=== PATIENT | female | born 1945 | race Caucasian/White ===

== ENCOUNTER 2018-06-17 08:46 | Emergency (ER) | payer BC, SELFPAY ==
[2018-06-17 08:55] VITALS: BP 188/70; PULSE 100; RESP 16; TEMP 36.3; O2SAT 98
--- NOTE | 2018-06-17 09:13 | DI.US_ITS ---
SYMPTOM/DIAGNOSIS: POST MENOPAUSAL BLEEDING, ASSESS FOR MASS PELVIC ULTRASOUND: Transabdominal and transvaginal examination was performed. The uterus measures 6.5 cm in length by 3.5 cm AP xy 4.6 cm transverse. There is a complex mass-like region centered about the fundal endometrium and measures 2.2 x 1.8 x 3.6 cm. There does appear to be internal vascularity. Both ovaries were visualized and are grossly unremarkable. No free pelvic fluid or hydronephrosis is identified. IMPRESSION: 2.2 x 1.8 x 3.6 cm complex mass centered in the region of the fundal endometrium. Endometrial or uterine neoplasm cannot be excluded. Endometrial polyp or hyperplasia should also be considered. Gynecologic consult is recommended. The findings were discussed with Dr. Starr of the Emergency Department on the date of the examination.
--- NOTE | 2018-06-17 09:16 | W.ED.GENAD ---
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: Post-menopausal bleeding, Endometrial hyperplasia Primary Care Provider: Tg Stevenson ED Provider: Abigail Starr Home Meds and New Rx's Prescriptions: Continued nystatin 100,000 unit/gram cream 1 applic TP TID PRN (Reason: groin rash) Qty: 60 RF: 6 multivitamin [Daily Vitamin] 1 EACH tablet 1 ea PO DAILY RF: 0 aspirin [Aspirin Low-Strength] 81 MG tablet,chewable 81 mg PO DAILY RF: 0 ascorbic acid (vitamin C) [Vitamin C] 500 MG tablet 500 mg PO DAILY RF: 0 vitamin B complex [B-Complex] 1 EACH tablet 1 ea PO DAILY RF: 0 cholecalciferol (vitamin D3) 1,000 UNIT tablet 2,000 unit PO DAILY RF: 0 melatonin-pyridoxine HCl (B6) 1 EACH tablet 1 ea PO HS RF: 0 triamcinolone acetonide 80 GM ointment 1 renetta Topical BID PRNQty: 1 RF: 1 hydrocortisone 30 GM ointment 1 inch Topical TID Qty: 1 RF: 6 amlodipine 5 MG tablet 5 mg PO DAILY 90 Days Qty: 90 RF: 3 losartan 100 MG tablet 100 mg PO DAILY 90 Days Qty: 90 RF: 3 ibuprofen [Advil] 200 MG tablet 400 mg PO QID Qty: 20 RF: 0 omega-3 fatty acids-fish oil [Fish Oil] 360-1,200 mg Capsule 1 cap PO DAILY RF: 0 atorvastatin 80 mg tablet 40 mg PO DAILY RF: 0 Discharge Instructions Instructions: Postmenopausal Bleeding (GEN) Additional Instructions: Go directly to [facility] on the 3rd floor of the hospital tomorrow afternoon at 2 PM for evaluation by the forensic accountant. Drink plenty of fluids and get plenty of rest. Return immediately to the emergency department if you develop any worsening symptoms of significant increase in vaginal bleeding, shortness of breath or dizziness. Discharge Data Discharge Physician: Abigail Starr Medical Decision Making 72-year-old female with history of hypertension, hyperlipidemia, bilateral breast lumpectomy who presents for vaginal bleeding with some clots over the past 2 days. No other associated symptoms. Denies chest pain, shortness of breath, dizziness, weakness, fever, vomiting, abdominal pain, rectal bleeding or urinary symptoms. She was seen at the PCP office yesterday for the same complaint and had a vaginal speculum exam which she states the PCP confirmed was vaginal bleeding. They also obtained a urinalysis which was negative for nitrite, leukocyte esterase and was clear and yellow, so I do not see an indication for a repeat urinalysis at this time she does not complain of any urinary symptoms. Blood pressure hypertensive. Remainder vitals within normal limits. Patient has not taken her blood pressure medication today. She appears nontoxic and comfortable. External exam notes blood within the vaginal vault. Abdomen soft and nontender. . Patient appears nontoxic and comfortable. Main concern would be for postmenopausal bleeding related to possible mass, polyp, or another source requiring ENVIRONMENTAL CONSTRUCTION ENGINEER evaluation. Will place an IV, labs, and pelvic and transvaginal ultrasound. 1100 -- labs and imaging reviewed. Labs unremarkable. Normal white blood cell count, hemoglobin, platelets, coagulation studies and electrolytes. Ultrasound reviewed with radiologist and there is a heterogeneous mass noted near the fundus. Differential diagnosis includes tumor, polyp, endometrial hyperplasia. Will call ENVIRONMENTAL CONSTRUCTION ENGINEER for recommendations, but will likely follow-up as an output. 1150 --discussed with ENVIRONMENTAL CONSTRUCTION ENGINEER fashion buying internship Dr. Mijares -recommends patient go to women's wellness on the for tomorrow afternoon at 2 PM for evaluation. This was discussed with patient and she will plan to do that. She is instructed to get plenty of rest, drink plenty of fluids, and return immediately to the ER with any worsening symptoms of shortness of breath, dizziness or worsening bleeding. Medical Records Medical records reviewed: Yes I reviewed the patient's medical records. Imaging Data Radiologic Study: Radiologist's impression: PELVIC ULTRASOUND: Transabdominal and transvaginal examination was performed. The uterus measures 6.5 cm in length by 3.5 cm AP xy 4.6 cm transverse. There is a complex mass-like region centered about the fundal endometrium and measures 2.2 x 1.8 x 3.6 cm. There does appear to be internal vascularity. Both ovaries were visualized and are grossly unremarkable. No free pelvic fluid or hydronephrosis is identified. IMPRESSION: 2.2 x 1.8 x 3.6 cm complex mass centered in the region of the fundal endometrium. Endometrial or uterine neoplasm cannot be excluded. Endometrial polyp or hyperplasia should also be considered. Gynecologic consult is recommended. Lab Data Lab results reviewed: Yes I reviewed the patient's lab results. Laboratory Tests Range/Units 06/17/18 06/17/18 06/17/18 10:35 10:35 10:35 WBC (4.4-10.8) k/cumm 8.41 RBC (4.00-5.20) m/cumm 4.89 Hgb (12.0-15.5) g/dL 14.0 Hct (36.0-46.0) % 42.6 MCV (80-95) fL 87.1 MCH (27.0-33.0) pg 28.6 MCHC (32.0-36.0) g/dL 32.9 RDW (11.7-14.6) % 14.0 Plt Count (130-400) x1000/uL 228 MPV (8.0-11.0) fL 10.6 Immature Gran % 0.2 Neutrophils % 74.1 Lymphocytes % 17.7 Monocytes % 6.7 Eosinophils % 0.8 Basophils % 0.5 Absolute Neutrophils (1.2-6.7) k/cumm 6.23 Absolute Lymphocytes (1.2-3.4) k/cumm 1.49 Absolute Monocytes (0.11-0.7) k/cumm 0.56 Absolute Eosinophils (0.0-0.7) k/cumm 0.07 Absolute Basophils (0.0-0.2) k/cumm 0.04 PT (9.3-11.0) sec 10.0 INR (0.9-1.1) 1.0 APTT (21.0-31.4) sec 23.8 Sodium (136-145) mmol/L 141 Potassium (3.5-5.1) mmol/L 3.7 Chloride (98-107) mmol/L 103 Carbon Dioxide (21.0-32.0) mmol/L 26.0 Anion Gap (3-11) mmol/L 12.0 H BUN (7-18) mg/dL 15 Creatinine (0.55-1.02) mg/dL 0.59 Estimated GFR/1.73 m2 (mL/min/1.73m2) >= 60.00 Glucose (70-100) mg/dL 112 H Calcium (8.5-10.1) mg/dL 9.9 Total Bilirubin (0.2-1.0) mg/dL 0.7 AST (15-37) U/L 29 ALT (12-78) U/L 40 Alkaline Phosphatase (46-116) U/L 114 Total Protein (6.4-8.2) g/dL 8.3 H Albumin (3.4-5.0) g/dL 4.1 Patient ABO/Rh Antibody Screen Range/Units 06/17/18 10:35 WBC (4.4-10.8) k/cumm RBC (4.00-5.20) m/cumm Hgb (12.0-15.5) g/dL Hct (36.0-46.0) % MCV (80-95) fL MCH (27.0-33.0) pg MCHC (32.0-36.0) g/dL RDW (11.7-14.6) % Plt Count (130-400) x1000/uL MPV (8.0-11.0) fL Immature Gran % Neutrophils % Lymphocytes % Monocytes % Eosinophils % Basophils % Absolute Neutrophils (1.2-6.7) k/cumm Absolute Lymphocytes (1.2-3.4) k/cumm Absolute Monocytes (0.11-0.7) k/cumm Absolute Eosinophils (0.0-0.7) k/cumm Absolute Basophils (0.0-0.2) k/cumm PT (9.3-11.0) sec INR (0.9-1.1) APTT (21.0-31.4) sec Sodium (136-145) mmol/L Potassium (3.5-5.1) mmol/L Chloride (98-107) mmol/L Carbon Dioxide (21.0-32.0) mmol/L Anion Gap (3-11) mmol/L BUN (7-18) mg/dL Creatinine (0.55-1.02) mg/dL Estimated GFR/1.73 m2 (mL/min/1.73m2) Glucose (70-100) mg/dL Calcium (8.5-10.1) mg/dL Total Bilirubin (0.2-1.0) mg/dL AST (15-37) U/L ALT (12-78) U/L Alkaline Phosphatase (46-116) U/L Total Protein (6.4-8.2) g/dL Albumin (3.4-5.0) g/dL Patient ABO/Rh O Negative Antibody Screen Negative HPI General Mode of arrival: ambulatory. Date/Time Provider Initiated Documentation: 06/17/18 09:10. Limitations to Documentation: no limitations. Information obtained by: patient. HPI Narrative: Patient is a 72-year-old female who presents the ED with complaint of vaginal bleeding for the past 2 days. States she goes through possibly one pad during the day, but states the bleeding is worse at night, and that she used 3 pads last night. She does note occasional clots. She denies any fever, nausea, vomiting, abdominal pain, vaginal pain, rectal bleeding, urinary symptoms, and states she has been eating and drinking normally. She states she saw her primary care doctor yesterday for these complaints and had a vaginal exam which noted blood within the vagina. She was referred for outpatient ENVIRONMENTAL CONSTRUCTION ENGINEER consultation. Patient states that the bleeding became worse last night so she came to the ER today. She denies any dizziness, chest pain, shortness of breath. Related Data Home Medications Medication Instructions Recorded Confirmed aspirin [Aspirin Low-Strength] 81 mg PO DAILY tab-cap 07/13/12 06/17/18 multivitamin [Daily Vitamin] 1 ea PO DAILY 07/13/12 06/17/18 ascorbic acid (vitamin C) [Vitamin 500 mg PO DAILY tab 04/04/14 06/17/18 C] cholecalciferol (vitamin D3) 2,000 unit PO DAILY 04/04/14 06/17/18 melatonin-pyridoxine HCl (B6) 1 ea PO HS 04/04/14 06/17/18 vitamin B complex [B-Complex] 1 ea PO DAILY tab 04/04/14 06/17/18 triamcinolone acetonide 1 renetta TOPICAL BID PRN #1 tube 12/25/14 06/17/18 ibuprofen [Advil] 400 mg PO QID #20 tab 05/14/15 06/17/18 hydrocortisone 1 inch TOPICAL TID #1 tube 08/27/15 06/17/18 amlodipine 5 mg PO DAILY 90 Days #90 tab-cap 07/13/17 06/17/18 losartan 100 mg PO DAILY 90 Days #90 tab-cap 07/13/17 06/17/18 nystatin 100,000 unit/gram topical 1 applic TP TID PRN #60 gm 06/16/18 06/17/18 cream atorvastatin 40 mg PO DAILY 06/17/18 06/17/18 omega-3 fatty acids-fish oil [Fish 1 cap PO DAILY 06/17/18 06/17/18 Oil] Previous Rx's Medication Instructions Recorded ibuprofen [Advil] 400 mg PO QID #20 tab 05/14/15 amlodipine 5 mg PO DAILY 90 Days #90 tab-cap 07/13/17 losartan 100 mg PO DAILY 90 Days #90 tab-cap 07/13/17 nystatin 100,000 unit/gram topical 1 applic TP TID PRN #60 gm 06/16/18 cream Allergies Allergy/AdvReac Type Severity Reaction Status Date / Time lisinopril AdvReac ? 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 Review of Systems Review of Systems All systems reviewed & are unremarkable except as noted in HPI and below Constitutional Reports as per HPI, Denies chills and Denies fever(s) Eyes Denies blurry vision ENT Denies dizziness, Denies sore throat and Denies throat swelling Cardiovascular Denies chest pain and Denies dyspnea Respiratory Denies cough and Denies dyspnea Gastrointestinal Denies abdominal pain, Denies diarrhea and Denies vomiting Genitourinary Reports abnormal vaginal bleeding, Denies hematuria and Denies dysuria Musculoskeletal Denies back pain and Denies numbness Integumentary/Breasts Denies lesions and Denies rash Neurologic Denies dizziness, Denies focal weakness and Denies numbness Allergic/Immunologic Denies throat swelling [facility] Medical History Hyperlipemia (Acute) HTN (hypertension) (Chronic) Kidney stones (Chronic) Surgical History History of lumpectomy (Acute) Family History Mother No problems noted. Father Myocardial infarction Son Age: 50 No problems noted. Daughter Age: 54 Diabetes Social History Smoking/Tobacco Use Status: Never Alcohol Intake: never Drug use: Never Substance use type: does not use Do you feel safe in your relationship?: Yes Exam Const General: cooperative, healthy appearing and no acute distress HENMT Head: normal to inspection Face and sinus: normal facial exam Eyes General: appearance normal, both eyes and all related structures EOM: EOM intact bilaterally Neck Neck: normal visual inspection and No submandibular swelling Lymphatic: no lymphadenopathy noted Chest Chest: normal inspection of the chest and no tenderness Resp Effort & Inspection: normal respiratory effort and able to speak in complete sentences Auscultation: clear to auscultation bilaterally Cardio Rate: regular rate Rhythm: regular rhythm GI Inspection: normal to inspection Palpation: soft, not firm, not rigid and nontender Auscultation: normal bowel sounds External Female Exam: normal appearance of the urethra and other (External exam reveals blood noted within the vagina.) Skin General skin exam: no rashes or lesions noted Neuro General: alert, awake and oriented x3 Cognition: normal cognition Speech: speech normal Motor: muscle tone normal throughout Sensory Exam: no sensory deficits noted Extrem General: normal to inspection, full ROM and no edema Psych Appearance: grossly normal Mental Status: mental status grossly normal Speech and Movement: speech and movement normal Affect: normal affect Course Vital Signs Temperature 97.3 F L 06/17/18 08:55 Pulse 100 H 06/17/18 08:55 Respiratory Rate 16 06/17/18 08:55 Blood Pressure 188/70 H 06/17/18 08:55 Pulse Oximetry 98 06/17/18 08:55 Temperature 97.3 F L 06/17/18 08:55 Temperature Source Skin 06/17/18 08:55 Pulse 100 H 06/17/18 08:55 Respiratory Rate 16 06/17/18 08:55 Respiratory Effort Non-Labored 06/17/18 08:55 Blood Pressure 188/70 H 06/17/18 08:55 Blood Pressure Position Sitting 06/17/18 08:55 Pulse Oximetry 98 06/17/18 08:55 Oxygen Delivery Method Room Air 06/17/18 08:55 Oxygen Flow Rate 0 06/17/18 08:55 Pain Level 0 06/17/18 08:55
[2018-06-17] MEDS: Normal Saline 1,000 ML 100 ML IV (10:35)
[2018-06-17 10:46] LABS: Abs Immature Grans 0.02 k/cumm (0.0-0.09); Absolute Basophil Count 0.04 k/cumm (0.0-0.2); Absolute Eosinophil Count 0.07 k/cumm (0.0-0.7); Absolute Lymphocyte Count 1.49 k/cumm (1.2-3.4); Absolute Monocyte Count 0.56 k/cumm (0.11-0.7); Absolute Neutrophil Count 6.23 k/cumm (1.2-6.7); Basophils % 0.5; Eosinophils % 0.8; HCT 42.6 % (36.0-46.0); Immature Grans % 0.2; Lymphocytes % 17.7; Mean Corp. HGB Concentration 32.9 g/dL (32.0-36.0); Mean Corpuscular Hemoglobin 28.6 pg (27.0-33.0); Mean Corpuscular Volume 87.1 fL (80-95); Mean Platelet Volume 10.6 fL (8.0-11.0); Monocytes % 6.7; Neutrophils % 74.1; Platelet Count 228 x1000/uL (130-400); RBC 4.89 m/cumm (4.00-5.20); White Blood Cell Count 8.41 k/cumm (4.4-10.8)
[2018-06-17 10:59] LABS: ALT 40 U/L (12-78); AST 29 U/L (15-37); Albumin 4.1 g/dL (3.4-5.0); Alkaline Phosphatase 114 U/L (46-116); BUN 15 mg/dL (7-18); Bilirubin, Total 0.7 mg/dL (0.2-1.0); CREATININE 0.59 mg/dL (0.55-1.02); Calcium 9.9 mg/dL (8.5-10.1); Chloride 103 mmol/L (98-107); Glucose 112 mg/dL (70-100); Potassium 3.7 mmol/L (3.5-5.1); Sodium 141 mmol/L (136-145); Total Protein 8.3 g/dL (6.4-8.2)
[2018-06-17 11:00] LABS: PTT Activated 23.8 sec (21.0-31.4)
[2018-06-17 14:21] VITALS: BP 156/63; PULSE 87; RESP 16; TEMP 36.3; O2SAT 94
== END 2018-06-17 12:28 | disposition home or self-care (01) ==
PROVIDERS: Emergency Provider Physician Assistant; PCP Nurse Practitioner
DX: N95.0 Postmenopausal bleeding (principal); N85.00 Endometrial hyperplasia, unspecified; I10 Essential (primary) hypertension
CPT/HCPCS: 80053; 86850; 86900; 86901; 96360; 96361; 99284; 76830; 76856; 85025; 85610; 85730

== ENCOUNTER 2018-06-22 15:55 | Outpatient (CLI) | payer BC, SELFPAY ==
[2018-06-22 16:57] LABS: Hemoglobin A1C 6.3 % (4.5-6.2)
[2018-06-22 19:05] LABS: ALT 40 U/L (12-78); AST 25 U/L (15-37); Albumin 4.2 g/dL (3.4-5.0); Alkaline Phosphatase 107 U/L (46-116); BUN 23 mg/dL (7-18); Bilirubin, Total 0.5 mg/dL (0.2-1.0); CREATININE 1.08 mg/dL (0.55-1.02); Calcium 10.5 mg/dL (8.5-10.1); Chloride 106 mmol/L (98-107); Cholesterol 191 mg/dL (50-200); Estimated GFR 49.59 (mL/min/1.73m2); Glucose 83 mg/dL (70-100); HDL Cholesterol 58 mg/dL (40-60); LDL CHOLESTEROL 115 mg/dL (<100); Potassium 4.2 mmol/L (3.5-5.1); Sodium 143 mmol/L (136-145); Total Protein 7.7 g/dL (6.4-8.2); Triglyceride 137 mg/dL (30-150)
[2018-06-24 09:45] LABS: Parathyroid Hormone,Intact 111 pg/ml (19-88)
== END 2018-06-22 16:15 ==
PROVIDERS: Family Medicine; PCP Nurse Practitioner; Visit Provider Obstetrics & Gynecology
DX: E21.0 Primary hyperparathyroidism (principal); E78.5 Hyperlipidemia, unspecified; R73.01 Impaired fasting glucose
CPT/HCPCS: 36415; 80053; 80061; 83721; 83036; 83970

== ENCOUNTER 2018-06-23 09:12 | Day surgery (SDC) | payer BC, SELFPAY ==
[2018-06-23 09:33] VITALS: BP 171/83; PULSE 94; RESP 18; TEMP 35.6; O2SAT 96
[2018-06-23] MEDS: Lactated Ringers 1,000 ML 125 ML IV (09:52)
--- NOTE | 2018-06-23 10:38 | ENDOMET_PTH ---
PATIENT: Candy Rios LOC: [facility] U#:[id number] AGE/SX: 72/F ROOM: RE06/23/[address]: Ricki Mijares MD : 1945 BED: DIS: 06/23/2018 SPEC #: [id number] RECD: 06/23/18 13:01 STATUS: LOUISE REBing #: [id number] MALINI: 06/23/18 10:[address]: Ricki Mijares DEPT: Surgical Specimen RECD BY: Jessica Lang ENTERED: 06/23/18 13:04 SP TYPE: Endomet OTHR DR: Tg Stevenson APRN Tissues: 1 - ENDOMETRIUM BX/CURRETTE Procedures: GROSS AND MICRO LEVEL 4 Comments: [id number]
[2018-06-23] MEDS: Lidocaine 1% Multi-Dose 50 ML VIAL (10:49)
[2018-06-23 10:55] VITALS: BP 153/57; PULSE 91; RESP 15; TEMP 36.4; O2SAT 96
--- NOTE | 2018-06-23 10:57 | W.PM.OP ---
Date of service: 06/23/18 Time of Service: 10:58 Operative Note DATE OF PROCEDURE: 06/23/18 PRE-OP DIAGNOSIS: Postmenopausal bleeding POST-OP DIAGNOSIS: same PROCEDURE: Hysteroscopy D&C SURGEON: Ricki Mijares ANESTHESIA: GETA and local ESTIMATED BLOOD LOSS: 0 PATHOLOGY: other (Endometrial curettings ) COMPLICATIONS: None Patient was transported to: PACU Patient's condition: stable Indications: Postmenopausal bleeding. Findings: 1. Thickened hyperplastic appearing endometrium. Procedure Description: The patient was taken to the operating room and after adequate general anesthesia was obtained the patient was prepped and draped in the usual sterile manner. The bladder was straight cathed for approximately 20ml of clear urine. A weighted speculum was placed in the vagina with good visualization of the cervix. A paracervical block with 10ml of 1% lidocaine was placed. The cervix was gently dilated with Marie dilators. The 5mm 30 degree hysteroscope with NS distention media was passed easily with good visualization of the endometrial cavity. There was a thickened hyperplastic appearance to the endometrial cavity. The hysteroscope was removed. A sharp curettage was performed and the specimen was submitted to pathology. All instrumentation was removed. Sponge and instrument counts were correct at the conclusion of the procedure. The patient was transferred to PACU in stable condition.
[2018-06-23 11:00] VITALS: BP 156/55; PULSE 97; RESP 14; TEMP 36.6; O2SAT 97
[2018-06-23 11:05] VITALS: BP 151/60; PULSE 95; RESP 15; TEMP 36.6; O2SAT 95
[2018-06-23 11:20] VITALS: BP 167/57; PULSE 95; RESP 15; TEMP 36.7; O2SAT 95
[2018-06-23 12:00] VITALS: BP 152/78; PULSE 88; RESP 16; TEMP 36.3; O2SAT 96
== END 2018-06-23 12:45 | disposition home or self-care (01) ==
PROVIDERS: PCP Nurse Practitioner; Visit Provider Obstetrics & Gynecology
PROC: 0UDB8ZZ Extraction of Endometrium, Via Natural or Artificial Opening Endoscopic (ICD-10-PCS; CPT 58558; principal; 2018-06-23 10:15)
DX: C54.1 Malignant neoplasm of endometrium (principal); N95.0 Postmenopausal bleeding; I10 Essential (primary) hypertension
CPT/HCPCS: 58558; 88305; J1100; J2405; J3010

== ENCOUNTER 2018-07-28 00:41 | Outpatient (CLI) | payer BC, SELFPAY ==
--- NOTE | 2018-07-28 16:09 | DI.MAMMO_ITS ---
SYMPTOMS/DIAGNOSIS: SCREENING, Z12.31 MAMMOGRAMS: Mammograms were interpreted according to the usual protocol including computer analysis with CAD system, tomosynthesis and C view imaging. The breast tissue is predominantly of fatty radiodensity. Biopsy clips are noted in both breasts. There is no evidence of a mass. There are no suspicious calcifications and there has been no significant interval change when compared with prior images. SUMMARY: No evidence of malignancy, category 1. Yearly screening mammography is recommended. Breast density category A. SA ASSESSMENT OF FINDINGS: Negative. Category 1. Patient will receive a letter notifying them of these results. BI-RAD category A. The breasts are almost entirely fatty.
== END 2018-07-28 01:01 ==
PROVIDERS: PCP Nurse Practitioner; Visit Provider Nurse Practitioner
DX: Z12.31 Encounter for screening mammogram for malignant neoplasm of breast (principal)
CPT/HCPCS: 77063; 77067

== ENCOUNTER 2018-08-23 14:51 | Emergency (ER) | payer BC, SELFPAY ==
[2018-08-23] VITALS (43 sets, daily range): BP systolic 105–136; BP diastolic 20–61; PULSE 89–99; RESP 16; TEMP 36.3; O2SAT 93–97
--- NOTE | 2018-08-23 15:03 | DI.CT_ITS ---
SYMPTOM/DIAGNOSIS: S/P TOTAL HYSTERECTOMY, WORSENING ABD/PELVIC PAIN ABDOMEN AND PELVIC CT: The exam was performed after intravenous of 60 cc's of Omnipaque 350 . The liver is unremarkable. The gallbladder is intact. There are no stones or ductal dilatation. The pancreas is unremarkable. The spleen is normal. The adrenals are normal. Note is made of minimal right hydronephrosis. No calculus is identified. There are no acute findings involving the stomach or bowel. Note is made of colonic diverticulosis. There is no evidence of an acute appendix. The bladder is non distended. The patient is status post hysterectomy. Pelvic fluid is seen in the central and right lower pelvis. There may be one continuous and or two adjacent fluid collections. The largest measures approximately 3 by 7 cm. There is no evidence of gas within the fluid collections. There is no pneumoperitoneum. Streaky soft tissue densities are demonstrated in the lower pelvis. No acute bony abnormality is seen. The soft tissues are unremarkable. There is no aortic aneurysm. There is no lymphadenopathy. SUMMARY: Pelvic free fluid would be consistent with a hematoma or abscess. This patient is status post hysterectomy. Note is also made of mild right hydronephrosis.
--- NOTE | 2018-08-23 15:04 | W.ED.GENAD ---
Discharge Plan Disposition Patient Disposition: [facility] Condition: Serious Discharge Details Chief Complaint: Abd Prob Clinical Impression: Post-operative complication, Intra-abdominal abscess Primary Care Provider: Tg Stevenson ED Provider: Jules Bowman Home Meds and New Rx's Prescriptions: No Action nystatin 100,000 unit/gram cream 1 applic TP TID PRN (Reason: groin rash) Qty: 60 RF: 6 amlodipine 10 mg tablet 10 mg PO DAILY Qty: 90 RF: 3 multivitamin [Daily Vitamin] 1 EACH tablet 1 ea PO DAILY RF: 0 aspirin [Aspirin Low-Strength] 81 MG tablet,chewable 81 mg PO DAILY RF: 0 ascorbic acid (vitamin C) [Vitamin C] 500 MG tablet 500 mg PO DAILY RF: 0 vitamin B complex [B-Complex] 1 EACH tablet 1 ea PO DAILY RF: 0 cholecalciferol (vitamin D3) 1,000 UNIT tablet 2,000 unit PO DAILY RF: 0 melatonin-pyridoxine HCl (B6) 1 EACH tablet 1 ea PO HS RF: 0 triamcinolone acetonide 80 GM ointment 1 renetta Topical BID PRNQty: 1 RF: 1 hydrocortisone 30 GM ointment 1 inch Topical TID Qty: 1 RF: 6 losartan 100 MG tablet 100 mg PO DAILY 90 Days Qty: 90 RF: 3 ibuprofen [Advil] 200 MG tablet 400 mg PO QID Qty: 20 RF: 0 omega-3 fatty acids-fish oil [Fish Oil] 360-1,200 mg Capsule 1 cap PO DAILY RF: 0 atorvastatin 80 mg tablet 40 mg PO DAILY RF: 0 Discharge Data Discharge Date/Time-TO BE ENTERED AT DEPARTURE: 08/23/18 21:05 Medical Decision Making This is a pleasant 72-year-old female who 9 days ago had a complete and total hysterectomy and oophorectomy. This was performed at [facility]. Since then she has been doing very well and had been eating and drinking well without any complication or difficulty. Over the last 48 to 72 hours she has had a notable sudden onset of severe abdominal and pelvic pain, with a notably decreased appetite. She did have a large bowel movement yesterday and this slightly improved her symptoms but did not resolve them, the pain is gotten notably worse. She has had no associated vomiting. Exam demonstrates notable abdominal tenderness, mild distention, and reduced bowel sounds. Differential includes postoperative complication, abscess, or obstruction. We will get a CT scan for further evaluation. Will gently rehydrate, perform laboratory work-up. Signs and symptoms are inconsistent with ACS. As there is no chest pain, shortness of breath or other chest symptoms whatsoever. The patient does not want any pain medication at this time. 8:[address] scan shows evidence of notable intra-abdominal fluid collection which could be hematoma or abscess. With the patient's white count of 30, lactate of 1.9, notable left shift, I suspect that this is most likely infectious. Zosyn has been started. Patient remains hemodynamically stable with no tachycardia or hypotension. No signs of significant or severe sepsis at this time. I contacted [facility] and discussed the case with Dr. Jiménez, she recommended transfer to [facility] for further management. We have received acceptance. Patient will be transferred to [facility] for further management. I have extensively reviewed the treatment plan with the patient. I have addressed all patient concerns at this time. I have also discussed the plan with the admitting physician and they agree with the current assessment and plan and have agreed to assume responsibility for the patient. All parties demonstrate verbal understanding and agreement with our assessment and plan at this time. At time of transfer the patient was reassessed and continued to demonstrate current medical stability. No signs of acute respiratory distress requiring intubation, hemodynamic instability requiring pressor support, or rapidly declining mental status. The patient is stable for transport. CLINICAL HISTORY: 72 years old, female; Abdominal pain; Prior surgery; Surgery date: <1 month; Surgery type: Total hystero 11 days ago, worsening pain TECHNIQUE: Imaging protocol: Axial computed tomography images of the abdomen and pelvis with intravenous contrast. Coronal and sagittal reformatted images were created and reviewed. COMPARISON: US pelvis 06/17/2018 3:39 PM FINDINGS: ABDOMEN: Liver: No mass. Gallbladder and bile ducts: Normal. No calcified stones. No ductal dilation. Pancreas: Normal. No ductal dilation. Spleen: Normal. No splenomegaly. Adrenals: No mass. Kidneys and ureters: Minimal right hydronephrosis, no obstructing ureteral calculus. Stomach and bowel: No acute findings. No obstruction. No mucosal thickening. Colonic diverticulosis. Appendix: No evidence of appendicitis. PELVIS: Bladder: Underdistended bladder. JOSHUA BLANCHARD Preliminary Radiology Report ART OBJECTS SUPERVISOR (QA) DISCREPANCY? If there is a discrepancy between the preliminary and final interpretation, please notify [facility] via [email or web address]. If you do not have access to our QA portal, call our QA team at [phone] CONFIDENTIALITY STATEMENT This report is intended only for the use of the referring physician, and only in accordance with law, If you received this in error, call [phone] Page 2 of 2 Reproductive: Hysterectomy. ABDOMEN and PELVIS: Intraperitoneal space: Pelvic fluid seen in the central and right lower pelvis, there may be one continuous or two adjacent fluid collections, the largest estimated 3 x 7 cm. No air/gas within the fluid collection(s). No pneumoperitoneum. Streaky soft tissue densities in the lower anterior pelvis. Bones/joints: No acute fracture. No dislocation. Soft tissues: Unremarkable. Vasculature: No abdominal aortic aneurysm. Lymph nodes: No significant adenopathy. IMPRESSION: Pelvic fluid consistent with hematoma or abscess. Status post hysterectomy. Minimal right hydronephrosis. Thank you for allowing us to participate in the care of your patient. Dictated and Authenticated by: Fredi Chapman MD 08/23/2018 5:57 PM Eastern Time ([place] & [place] HPI General Date/Time Provider Initiated Documentation: 08/23/18 15:02. HPI Narrative: This is a very pleasant 72-year-old female with a past medical history of uterine cancer with total hysterectomy and oophorectomy on 08/12/2018 at [facility], with an additional past medical history of kidney stones, hypertension, high cholesterol and chronic cardiac murmur. She presents today for abdominal and pelvic pain. She states that after the surgery she had been doing very well, had not required any pain medications and had been eating and drinking well with no vomiting diarrhea or constipation. 3 days ago she noticed some mild to moderate lower pelvic and abdominal pain, this gradually worsened and then became severe over the last 24 hours. She did have one large bowel movement earlier today and this slightly improved the pain. However the pain is still persistent. She denies any diarrhea, vomiting, hematemesis, melena, or acholic stool. She denies any dark or tarry stools. She does admit to a notably decreased appetite. She denies any chest pain, shortness of breath, chest heaviness, arm neck or shoulder pain, dysuria, hematuria, fever, chills, cough, vaginal discharge. Patient denies IV or illicit drug use. She is only taking 1 pain pill and that was today because of the severe pain. No other complaints or modifying factors. Related Data Home Medications Medication Instructions Recorded Confirmed aspirin [Aspirin Low-Strength] 81 mg PO DAILY tab-cap 07/13/12 08/23/18 multivitamin [Daily Vitamin] 1 ea PO DAILY 07/13/12 08/23/18 ascorbic acid (vitamin C) [Vitamin 500 mg PO DAILY tab 04/04/14 08/23/18 C] cholecalciferol (vitamin D3) 2,000 unit PO DAILY 04/04/14 08/23/18 melatonin-pyridoxine HCl (B6) 1 ea PO HS 04/04/14 08/23/18 vitamin B complex [B-Complex] 1 ea PO DAILY tab 04/04/14 08/23/18 triamcinolone acetonide 1 renetta TOPICAL BID PRN #1 tube 12/25/14 08/23/18 ibuprofen [Advil] 400 mg PO QID #20 tab 05/14/15 08/23/18 hydrocortisone 1 inch TOPICAL TID #1 tube 08/27/15 08/23/18 losartan 100 mg PO DAILY 90 Days #90 tab-cap 07/13/17 08/23/18 nystatin 100,000 unit/gram topical 1 applic TP TID PRN #60 gm 06/16/18 08/23/18 cream atorvastatin 40 mg PO DAILY 06/17/18 08/23/18 omega-3 fatty acids-fish oil [Fish 1 cap PO DAILY 06/17/18 08/23/18 Oil] amlodipine 10 mg tablet 10 mg PO DAILY #90 tab 06/21/18 08/23/18 Previous Rx's Medication Instructions Recorded ibuprofen [Advil] 400 mg PO QID #20 tab 05/14/15 losartan 100 mg PO DAILY 90 Days #90 tab-cap 07/13/17 nystatin 100,000 unit/gram topical 1 applic TP TID PRN #60 gm 06/16/18 cream amlodipine 10 mg tablet 10 mg PO DAILY #90 tab 06/21/18 Allergies Allergy/AdvReac Type Severity Reaction Status Date / Time lisinopril AdvReac ? dry cough Verified 08/23/18 18:46 General Stated Complaint: Abd Prob RAMEZ: 3 Review of Systems Review of Systems All systems reviewed & are unremarkable except as noted in HPI and below PFSH Medical History Heart murmur (Acute) Hyperlipemia (Acute) HTN (hypertension) (Chronic) Kidney stones (Chronic) Surgical History History of colonoscopy with polypectomy (Acute) History of lumpectomy (Acute) History of lumpectomy of both breasts (Acute) Social History Smoking/Tobacco Use Status: Never Alcohol Intake: never Drug use: Never Substance use type: does not use Do you feel safe at home: Yes Do you feel safe in your relationship?: Yes Exam Narrative Exam Narrative: 1.Const: Well-nourished, Well-developed, appearing stated age 2.Eyes: PERRL, no conjunctival injection, and symmetrical lids. 3.ENT: Atraumatic external nose and ears. Moist MM. Neck: Symmetric, trachea midline, No thyromegaly. 4.CVS: +S1/S2, No murmurs or gallops. Peripheral pulses 2+ and equal in all extremities. Brisk capillary refill in all extremities. 5.RESP: Unlabored respiratory effort. Clear to auscultation bilaterally. No wheezes rales or rhonchi 6.GI: Minimal abdominal distention, noted rebound and tenderness throughout. Laparoscopic incision sites are clean, dry, intact with no evidence of dehiscence. No drainage redness or erythema. No subcutaneous crepitus. Notably diminished bowel sounds throughout. Abdominal pain is consistent through the abdomen and pelvis 7.MSK: Normocephalic/Atraumatic, Extremities w/o deformity or ttp No cyanosis or clubbing, Normal movement of all extremities 8.Skin: Warm, Dry. No rashes or lesions. 9.Neuro: grocery packer II-XII grossly intact. Sensation grossly intact, no focal neurologic deficits. 10.Psych: (AAO) x3. Appropriate mood and affect Course Vital Signs Temperature 36.3 C L 08/23/18 14:54 Pulse 99 H 08/23/18 14:54 Respiratory Rate 16 08/23/18 14:54 Blood Pressure 111/43 L 08/23/18 14:54 Pulse Oximetry 97 08/23/18 14:54 Temperature 36.3 C L 08/23/18 14:54 Temperature Source Skin 08/23/18 14:54 Pulse 99 H 08/23/18 14:54 Respiratory Rate 16 08/23/18 14:54 Blood Pressure 111/43 L 08/23/18 14:54 Blood Pressure Position Sitting 08/23/18 14:54 Pulse Oximetry 97 08/23/18 14:54 Oxygen Delivery Method Room Air 08/23/18 14:54 Oxygen Flow Rate 0 08/23/18 14:54
--- NOTE | 2018-08-23 15:08 | ED.GENADUL_ITS ---
Discharge Plan Disposition Patient Disposition: [facility] Condition: Serious Discharge Details Chief Complaint: Abd Prob Clinical Impression: Post-operative complication, Intra-abdominal abscess Primary Care Provider: Tg Stevenson ED Provider: Jules Bowman Home Meds and New Rx's Prescriptions: No Action nystatin 100,000 unit/gram cream 1 applic TP TID PRN (Reason: groin rash) Qty: 60 RF: 6 amlodipine 10 mg tablet 10 mg PO DAILY Qty: 90 RF: 3 multivitamin [Daily Vitamin] 1 EACH tablet 1 ea PO DAILY RF: 0 aspirin [Aspirin Low-Strength] 81 MG tablet,chewable 81 mg PO DAILY RF: 0 ascorbic acid (vitamin C) [Vitamin C] 500 MG tablet 500 mg PO DAILY RF: 0 vitamin B complex [B-Complex] 1 EACH tablet 1 ea PO DAILY RF: 0 cholecalciferol (vitamin D3) 1,000 UNIT tablet 2,000 unit PO DAILY RF: 0 melatonin-pyridoxine HCl (B6) 1 EACH tablet 1 ea PO HS RF: 0 triamcinolone acetonide 80 GM ointment 1 renetta Topical BID PRNQty: 1 RF: 1 hydrocortisone 30 GM ointment 1 inch Topical TID Qty: 1 RF: 6 losartan 100 MG tablet 100 mg PO DAILY 90 Days Qty: 90 RF: 3 ibuprofen [Advil] 200 MG tablet 400 mg PO QID Qty: 20 RF: 0 omega-3 fatty acids-fish oil [Fish Oil] 360-1,200 mg Capsule 1 cap PO DAILY RF: 0 atorvastatin 80 mg tablet 40 mg PO DAILY RF: 0 Discharge Data Discharge Date/Time-TO BE ENTERED AT DEPARTURE: 08/23/18 21:05 Medical Decision Making This is a pleasant 72-year-old female who 9 days ago had a complete and total hysterectomy and oophorectomy. This was performed at [facility]. Since then she has been doing very well and had been eating and drinking well without any complication or difficulty. Over the last 48 to 72 hours she has had a notable sudden onset of severe abdominal and pelvic pain, with a notably decreased appetite. She did have a large bowel movement yesterday and this slightly improved her symptoms but did not resolve them, the pain is gotten notably worse. She has had no associated vomiting. Exam demonstrates notable abdominal tenderness, mild distention, and reduced bowel sounds. Differential includes postoperative complication, abscess, or obstruction. We will get a CT scan for further evaluation. Will gently rehydrate, perform laboratory work-up. Signs and symptoms are inconsistent with ACS. As there is no chest pain, shortness of breath or other chest symptoms whatsoever. The patient does not want any pain medication at this time. 8:[address] scan shows evidence of notable intra-abdominal fluid collection which could be hematoma or abscess. With the patient's white count of 30, lactate of 1.9, notable left shift, I suspect that this is most likely infectious. Zosyn has been started. Patient remains hemodynamically stable with no tachycardia or hypotension. No signs of significant or severe sepsis at this time. I contacted [facility] and discussed the case with Dr. Jiménez, she recommended transfer to [facility] for further management. We have received acceptance. Patient will be transferred to [facility] for further management. I have extensively reviewed the treatment plan with the patient. I have addressed all patient concerns at this time. I have also discussed the plan with the admitting physician and they agree with the current assessment and plan and have agreed to assume responsibility for the patient. All parties demonstrate verbal understanding and agreement with our assessment and plan at this time. At time of transfer the patient was reassessed and continued to demonstrate current medical stability. No signs of acute respiratory distress requiring intubation, hemodynamic instability requiring pressor support, or rapidly declining mental status. The patient is stable for transport. CLINICAL HISTORY: 72 years old, female; Abdominal pain; Prior surgery; Surgery date: <1 month; Surgery type: Total hystero 11 days ago, worsening pain TECHNIQUE: Imaging protocol: Axial computed tomography images of the abdomen and pelvis with intravenous contrast. Coronal and sagittal reformatted images were created and reviewed. COMPARISON: US pelvis 06/17/2018 3:39 PM FINDINGS: ABDOMEN: Liver: No mass. Gallbladder and bile ducts: Normal. No calcified stones. No ductal dilation. Pancreas: Normal. No ductal dilation. Spleen: Normal. No splenomegaly. Adrenals: No mass. Kidneys and ureters: Minimal right hydronephrosis, no obstructing ureteral calculus. Stomach and bowel: No acute findings. No obstruction. No mucosal thickening. Colonic diverticulosis. Appendix: No evidence of appendicitis. PELVIS: Bladder: Underdistended bladder. JOSHUA BLANCHARD Preliminary Radiology Report DEDICATED INTERMODAL TRUCK DRIVER (QA) DISCREPANCY? If there is a discrepancy between the preliminary and final interpretation, please notify [facility] via [email or web address]. If you do not have access to our QA portal, call our QA team at [phone] CONFIDENTIALITY STATEMENT This report is intended only for the use of the referring physician, and only in accordance with law, If you received this in error, call [phone] Page 2 of 2 Reproductive: Hysterectomy. ABDOMEN and PELVIS: Intraperitoneal space: Pelvic fluid seen in the central and right lower pelvis, there may be one continuous or two adjacent fluid collections, the largest estimated 3 x 7 cm. No air/gas within the fluid collection(s). No pneumoperitoneum. Streaky soft tissue densities in the lower anterior pelvis. Bones/joints: No acute fracture. No dislocation. Soft tissues: Unremarkable. Vasculature: No abdominal aortic aneurysm. Lymph nodes: No significant adenopathy. IMPRESSION: Pelvic fluid consistent with hematoma or abscess. Status post hysterectomy. Minimal right hydronephrosis. Thank you for allowing us to participate in the care of your patient. Dictated and Authenticated by: Fredi Chapman MD 08/23/2018 5:57 PM Eastern Time ([place] & [place] HPI General Date/Time Provider Initiated Documentation: 08/23/18 15:02 . HPI Narrative: This is a very pleasant 72-year-old female with a past medical history of uterine cancer with total hysterectomy and oophorectomy on 08/12/2018 at [facility], with an additional past medical history of kidney stones, hypertension, high cholesterol and chronic cardiac murmur. She presents today for abdominal and pelvic pain. She states that after the surgery she had been doing very well, had not required any pain medications and had been eating and drinking well with no vomiting diarrhea or constipation. 3 days ago she noticed some mild to moderate lower pelvic and abdominal pain, this gradually worsened and then became severe over the last 24 hours. She did have one large bowel movement earlier today and this slightly improved the pain. However the pain is still persistent. She denies any diarrhea, vomiting, hematemesis, melena, or acholic stool. She denies any dark or tarry stools. She does admit to a notably decreased appetite. She denies any chest pain, shortness of breath, chest heaviness, arm neck or shoulder pain, dysuria, hematuria, fever, chills, cough, vaginal discharge. Patient denies IV or illicit drug use. She is only taking 1 pain pill and that was today because of the severe pain. No other complaints or modifying factors. Related Data Home Medications Medication Instructions Recorded Confirmed aspirin [Aspirin Low-Strength] 81 mg PO DAILY tab-cap 07/13/12 08/23/18 multivitamin [Daily Vitamin] 1 ea PO DAILY 07/13/12 08/23/18 ascorbic acid (vitamin C) [Vitamin 500 mg PO DAILY tab 04/04/14 08/23/18 C] cholecalciferol (vitamin D3) 2,000 unit PO DAILY 04/04/14 08/23/18 melatonin-pyridoxine HCl (B6) 1 ea PO HS 04/04/14 08/23/18 vitamin B complex [B-Complex] 1 ea PO DAILY tab 04/04/14 08/23/18 triamcinolone acetonide 1 renetta TOPICAL BID PRN #1 tube 12/25/14 08/23/18 ibuprofen [Advil] 400 mg PO QID #20 tab 05/14/15 08/23/18 hydrocortisone 1 inch TOPICAL TID #1 tube 08/27/15 08/23/18 losartan 100 mg PO DAILY 90 Days #90 tab-cap 07/13/17 08/23/18 nystatin 100,000 unit/gram topical 1 applic TP TID PRN #60 gm 06/16/18 08/23/18 cream atorvastatin 40 mg PO DAILY 06/17/18 08/23/18 omega-3 fatty acids-fish oil [Fish 1 cap PO DAILY 06/17/18 08/23/18 Oil] amlodipine 10 mg tablet 10 mg PO DAILY #90 tab 06/21/18 08/23/18 Previous Rx's Medication Instructions Recorded ibuprofen [Advil] 400 mg PO QID #20 tab 05/14/15 losartan 100 mg PO DAILY 90 Days #90 tab-cap 07/13/17 nystatin 100,000 unit/gram topical 1 applic TP TID PRN #60 gm 06/16/18 cream amlodipine 10 mg tablet 10 mg PO DAILY #90 tab 06/21/18 Allergies Allergy/AdvReac Type Severity Reaction Status Date / Time lisinopril AdvReac ? dry cough Verified 08/23/18 18:46 General Stated Complaint: Abd Prob RAMEZ: 3 Review of Systems Review of Systems All systems reviewed & are unremarkable except as noted in HPI and below PFSH Medical History Heart murmur (Acute) Hyperlipemia (Acute) HTN (hypertension) (Chronic) Kidney stones (Chronic) Surgical History History of colonoscopy with polypectomy (Acute) History of lumpectomy (Acute) History of lumpectomy of both breasts (Acute) Social History Smoking/Tobacco Use Status: Never Alcohol Intake: never Drug use: Never Substance use type: does not use Do you feel safe at home: Yes Do you feel safe in your relationship?: Yes Exam Narrative Exam Narrative: 1.Const: Well-nourished, Well-developed, appearing stated age 2.Eyes: PERRL, no conjunctival injection, and symmetrical lids. 3.ENT: Atraumatic external nose and ears. Moist MM. Neck: Symmetric, trachea midline, No thyromegaly. 4.CVS: +S1/S2, No murmurs or gallops. Peripheral pulses 2+ and equal in all extremities. Brisk capillary refill in all extremities. 5.RESP: Unlabored respiratory effort. Clear to auscultation bilaterally. No wheezes rales or rhonchi 6.GI: Minimal abdominal distention, noted rebound and tenderness throughout. Laparoscopic incision sites are clean, dry, intact with no evidence of dehiscence. No drainage redness or erythema. No subcutaneous crepitus. Notably diminished bowel sounds throughout. Abdominal pain is consistent through the abdomen and pelvis 7.MSK: Normocephalic/Atraumatic, Extremities w/o deformity or ttp No cyanosis or clubbing, Normal movement of all extremities 8.Skin: Warm, Dry. No rashes or lesions. 9.Neuro: medical officer psychiatry II-XII grossly intact. Sensation grossly intact, no focal neurologic deficits. 10.Psych: (AAO) x3. Appropriate mood and affect Course Vital Signs Temperature 36.3 C L 08/23/18 14:54 Pulse 99 H 08/23/18 14:54 Respiratory Rate 16 08/23/18 14:54 Blood Pressure 111/43 L 08/23/18 14:54 Pulse Oximetry 97 08/23/18 14:54 Temperature 36.3 C L 08/23/18 14:54 Temperature Source Skin 08/23/18 14:54 Pulse 99 H 08/23/18 14:54 Respiratory Rate 16 08/23/18 14:54 Blood Pressure 111/43 L 08/23/18 14:54 Blood Pressure Position Sitting 08/23/18 14:54 Pulse Oximetry 97 08/23/18 14:54 Oxygen Delivery Method Room Air 08/23/18 14:54 Oxygen Flow Rate 0 08/23/18 14:54
[2018-08-23] MEDS: Lactated Ringers 500 ML IV (15:22)
[2018-08-23 15:25] LABS: HCT 40.1 % (36.0-46.0); HGB 13.2 g/dL (12.0-15.5); Mean Corp. HGB Concentration 32.9 g/dL (32.0-36.0); Mean Corpuscular Hemoglobin 28.7 pg (27.0-33.0); Mean Corpuscular Volume 87.2 fL (80-95); Mean Platelet Volume 10.9 fL (8.0-11.0); Platelet Count 260 x1000/uL (130-400); RBC Distribution Width 14.5 % (11.7-14.6)
[2018-08-23 15:29] LABS: Absolute Lymphocyte Count 0.48 k/cumm (1.2-3.4); White Blood Cell Count 30.13 k/cumm (4.4-10.8)
[2018-08-23 15:41] LABS: ALT 24 U/L (12-78); AST 17 U/L (15-37); Alkaline Phosphatase 109 U/L (46-116); Anion Gap 15.6 mmol/L (3-11); BUN 30 mg/dL (7-18); Bilirubin, Total 1.2 mg/dL (0.2-1.0); CO2 21.4 mmol/L (21.0-32.0); CREATININE 1.26 mg/dL (0.55-1.02); Calcium 11.2 mg/dL (8.5-10.1); Chloride 97 mmol/L (98-107); Estimated GFR 41.51 (mL/min/1.73m2); Glucose 115 mg/dL (70-100); Lipase 60 U/L (73-393); Sodium 134 mmol/L (136-145); Total Protein 8.6 g/dL (6.4-8.2)
[2018-08-23 15:42] LABS: INR 1.1 (0.9-1.1); PTT Activated 29.9 sec (21.0-31.4)
[2018-08-23 15:53] LABS: Potassium 2.9 mmol/L (3.5-5.1)
[2018-08-23 16:00] LABS: Absolute Neutrophil Count 28.92 k/cumm (1.2-6.7)
[2018-08-23 16:01] LABS: Diff Comment Manual Differential; RBC Morphology Normal
[2018-08-23 16:09] LABS: Lactate-non-spesis 1.9 mmol/l (0.6-1.4)
[2018-08-23 17:02] LABS: Bilirubin Negative (Negative); Blood Trace-intact (Negative); Clarity Clear; Glucose Negative (Negative); Ketones Negative (Negative); Leukocyte Esterase Negative (Negative); Nitrite Negative (Negative); Urobilinogen 0.2 EU/dL (Up TO 0.2); pH 5.5 (5-8)
[2018-08-23 17:13] LABS: Bacteria Moderate HPF (Negative); C & S Indicated? No/Sq. Contamination; Casts Negative LPF (Negative); Crystals Negative HPF (Negative); Epithelial Cells Many HPF (Negative); Mucus Trace (Negative); Other Cells Negative (Negative); RBC 0-2 (0-2)
[2018-08-23] MEDS: Omnipaque 350 MG/ML 100 ML BTL IJ (17:17)
[2018-08-23] MEDS: Omnipaque 350 MG/ML 50 ML BTL PO (17:19)
[2018-08-23 17:30] LABS: Magnesium 1.7 mg/dL (1.8-2.4)
--- NOTE | 2018-08-23 17:57 | DI.VRAD_ITS ---
EXAM: CT Abdomen and Pelvis With Contrast EXAM DATE/TIME: 08/23/2018 3:08 PM CLINICAL HISTORY: 72 years old, female; Abdominal pain; Prior surgery; Surgery date: <1 month; Surgery type: Total hystero 11 days ago, worsening pain TECHNIQUE: Imaging protocol: Axial computed tomography images of the abdomen and pelvis with intravenous contrast. Coronal and sagittal reformatted images were created and reviewed. COMPARISON: US pelvis 06/17/2018 3:39 PM FINDINGS: ABDOMEN: Liver: No mass. Gallbladder and bile ducts: Normal. No calcified stones. No ductal dilation. Pancreas: Normal. No ductal dilation. Spleen: Normal. No splenomegaly. Adrenals: No mass. Kidneys and ureters: Minimal right hydronephrosis, no obstructing ureteral calculus. Stomach and bowel: No acute findings. No obstruction. No mucosal thickening. Colonic diverticulosis. Appendix: No evidence of appendicitis. PELVIS: Bladder: Underdistended bladder. Reproductive: Hysterectomy. ABDOMEN and PELVIS: Intraperitoneal space: Pelvic fluid seen in the central and right lower pelvis, there may be one continuous or two adjacent fluid collections, the largest estimated 3 x 7 cm. No air/gas within the fluid collection(s). No pneumoperitoneum. Streaky soft tissue densities in the lower anterior pelvis. Bones/joints: No acute fracture. No dislocation. Soft tissues: Unremarkable. Vasculature: No abdominal aortic aneurysm. Lymph nodes: No significant adenopathy. IMPRESSION: Pelvic fluid consistent with hematoma or abscess. Status post hysterectomy. Minimal right hydronephrosis. Dictated and Authenticated by: Fredi Chapman MD. Ordering:LEON Vicente MD
[2018-08-23] MEDS: POTASSIUM CHLORIDE 20 MEQ/100 ML BAG 50 MEQ IVPB (18:09)
[2018-08-23] MEDS: PIPERACILLIN/TAZO 4.5 GM in Normal Saline 100 ML IVPB (18:11)
[2018-08-23] MEDS: Ibuprofen 400 MG TAB (20:37)
== END 2018-08-23 21:05 | disposition short-term general hospital (02) ==
PROVIDERS: Emergency Provider Student in an Organized Health Care Education/Training Program; PCP Nurse Practitioner
DX: K65.1 Peritoneal abscess (principal); I10 Essential (primary) hypertension; Z90.710 Acquired absence of both cervix and uterus
CPT/HCPCS: 36415; 80053; 83690; 87040; 96361; 96365; 96366; 96368; 99285; 74177; 81003; 81015; 83605; 83735; 85025; 85610; 85730; 99284; J2543; J3480; J3490; Q9967

== ENCOUNTER 2018-08-28 19:23 | Inpatient (IN) | payer BC, SELFPAY ==
[2018-08-28 19:40] VITALS: BP 129/51; PULSE 95; RESP 20; TEMP 36.8; O2SAT 94
[2018-08-28 20:15] VITALS: RESP 18
[2018-08-28 20:18] LABS: Abs Immature Grans 2.55 k/cumm (0.0-0.09); HCT 40.5 % (36.0-46.0); HGB 13.2 g/dL (12.0-15.5); Mean Corp. HGB Concentration 32.6 g/dL (32.0-36.0); Mean Corpuscular Hemoglobin 27.9 pg (27.0-33.0); Mean Corpuscular Volume 85.6 fL (80-95); Mean Platelet Volume 9.7 fL (8.0-11.0); Platelet Count 244 x1000/uL (130-400); RBC 4.73 m/cumm (4.00-5.20); RBC Distribution Width 14.5 % (11.7-14.6); White Blood Cell Count 21.47 k/cumm (4.4-10.8)
[2018-08-28 20:33] LABS: ALT 27 U/L (12-78); AST 44 U/L (15-37); Alkaline Phosphatase 105 U/L (46-116); Anion Gap 12.5 mmol/L (3-11); BUN 24 mg/dL (7-18); Bilirubin, Total 0.5 mg/dL (0.2-1.0); CO2 25.5 mmol/L (21.0-32.0); Calcium 10.1 mg/dL (8.5-10.1); Chloride 100 mmol/L (98-107); Glucose 166 mg/dL (70-100); Sodium 138 mmol/L (136-145); Total Protein 7.4 g/dL (6.4-8.2)
[2018-08-28 20:40] LABS: Potassium 2.6 mmol/L (3.5-5.1)
[2018-08-28 20:55] LABS: Absolute Lymphocyte Count 1.07 k/cumm (1.2-3.4); Absolute Monocyte Count 1.72 k/cumm (0.11-0.7); Absolute Neutrophil Count 17.18 k/cumm (1.2-6.7); Diff Comment Manual Differential; Polychromasia Present
[2018-08-28 21:01] LABS: D-Dimer > 7500 ng/mlFEU (<500)
--- NOTE | 2018-08-28 21:22 | DI.CT_ITS ---
SYMPTOMS/DIAGNOSIS: RIGHT LEG SWELLING, ELEVATED D-DIMER, SHORTNESS OF BREATH CTA OF THE CHEST AND A CTA OF THE ABDOMINAL AORTA WITH RUNOFF: CT angiography was performed with multi slice acquisition and multi planar and 3D reconstruction. CT ANGIOGRAPHY OF THE CHEST: There are filling defects seen in branches of the pulmonary arteries bilaterally. Pulmonary emboli are seen in branches involving both upper lobes, right middle lobe and both lower lobes. No central pulmonary emboli are noted. The heart size is within normal limits. No findings to suggest right ventricular dysfunction are seen. No pericardial effusion is present. No significant thoracic adenopathy, pleural effusion or pneumothorax is identified. The thoracic aorta is of normal caliber with mild atherosclerosis. No aneurysm or dissection is present. Mild dependent atelectatic changes are seen in the lung bases. The tracheobronchial tree is unremarkable. No acute osseous abnormality is identified. IMPRESSION: Bilateral pulmonary emboli. There is a small to moderate clot burden present. No evidence of right heart strain. CT ANGIOGRAPHY OF THE ABDOMINAL AORTA WITH RUNOFF: The liver is normal in size. No evidence of a hepatic mass is seen. The gallbladder is negative. There is no biliary ductal dilatation. The pancreas, spleen, adrenal glands, kidneys and ureters are unremarkable. There has been a decrease in the urinary bladder wall thickening compared to the prior examination. Reproductive organs are unremarkable. The bowel shows no evidence of obstruction or inflammation. There is diverticulosis seen in the sigmoid colon. There is edema seen in the soft tissues of the right lower extremity and the right retroperitoneum and abdominal wall. The abdominal aorta shows atherosclerosis but no aneurysm or dissection is present. The celiac axis, superior and inferior mesenteric arteries are unremarkable. There is calcium at the origins of both renal arteries, but no significant stenosis or occlusion is seen. The iliac arteries show atherosclerosis but no evidence of occlusion or significant stenosis. The femoral and popliteal arteries show no evidence of occlusion or significant stenosis. The infrapopliteal arteries are unremarkable. IMPRESSION: 1. No aortic, iliac or femoropopliteal injury is noted. 2. Stable size of the pelvic fluid collection since 08/23/18. Interval placement of a drainage catheter, which lies within the fluid collection. 3. Subcutaneous edema involving the right lower extremity, the soft tissues over the right hip and the right retroperitoneum.
[2018-08-28 21:26] VITALS: BP 039/59; PULSE 87; RESP 18; O2SAT 94
[2018-08-28] MEDS: Omnipaque 350 MG/ML 100 ML BTL IJ (22:42)
[2018-08-28] MEDS: POTASSIUM CHLORIDE 10 MEQ/100 ML BAG 100 MEQ IVPB (23:00)
[2018-08-28] MEDS: Normal Saline 1,000 ML 125 ML IV (23:00)
--- NOTE | 2018-08-28 23:27 | DI.VRAD_ITS ---
Addendum created by Jorge Dumont MD on 08/28/2018 11:32:26 PM EDT THIS REPORT CONTAINS FINDINGS THAT MAY BE CRITICAL TO PATIENT CARE. The findings were verbally communicated via telephone conference with REGINALD EY at 11:32 PM EDT on 08/28/2018. The findings were acknowledged and understood. Initial report created on 08/28/2018 11:27:28 PM EDT EXAM: CT Angiography Chest With Contrast EXAM DATE/TIME: 08/28/2018 9:24 PM CLINICAL HISTORY: 72 years old, female; Signs and symptoms and abnormal findings; Abnormal diagnostic tests; Shortness of breath; Patient HX: Right leg swelling, SOB, elevated d-dimer TECHNIQUE: Imaging protocol: Axial computed tomographic angiography images of the chest with intravenous contrast using CT angiography protocol. Coronal and sagittal reformatted images were created and reviewed. 3D rendering: MIP reconstructed images were created and reviewed. COMPARISON: No relevant prior studies available. FINDINGS: Pulmonary arteries: Scattered few segmental size pulmonary emboli bilaterally. There is a nonocclusive thrombus in the left lower lobe pulmonary artery. No large central emboli. Aorta: Unremarkable. No aortic aneurysm. No aortic dissection. Lungs: Small amount of dependent atelectasis. Pleural space: Unremarkable. No pneumothorax. No pleural effusion. Heart: Unremarkable. No pericardial effusion. No obvious heart strain. Lymph nodes: Unremarkable. No enlarged lymph nodes. Bones/joints: Unremarkable. No acute fracture. Soft tissues: Unremarkable. IMPRESSION: Pulmonary emboli. Small to moderate clot burden. No evidence of heart strain. EXAM: CT Bilateral Angiogram of the Abdominal Aorta and Bilateral Lower Extremities (Run-off) With IV Contrast EXAM DATE/TIME: 08/28/2018 9:24 PM CLINICAL HISTORY: 72 years old, female; Signs and symptoms and abnormal findings; Abnormal diagnostic tests; Shortness of breath; Patient HX: Right leg swelling, SOB, elevated d-dimer TECHNIQUE: Imaging protocol: Bilateral CT angiogram of the abdominal aorta, pelvis and bilateral lower extremities with IV iodinated contrast. COMPARISON: Abdomen and pelvis CT from 08/23/2018. FINDINGS: Tubes, catheters and devices: Interval placement of a pigtail drainage catheter into abdominal fluid collection. Aorta: No aortic aneurysm. No aortic dissection. Celiac trunk and mesenteric arteries: No occlusion or significant stenosis. Renal arteries: No occlusion or significant stenosis. Right iliac arteries: No occlusion or significant stenosis. Right femoral/popliteal arteries: No occlusion or significant stenosis. Right infrapopliteal arteries: No occlusion or significant stenosis. Left iliac arteries: No occlusion or significant stenosis. Left femoral/popliteal arteries: No occlusion or significant stenosis. Left infrapopliteal arteries: No occlusion or significant stenosis. Liver: No mass. Gallbladder and bile ducts: Unremarkable. No calcified stones. No ductal dilation. Pancreas: Unremarkable. No mass. No ductal dilation. Spleen: Normal. No splenomegaly. Adrenals: Normal. No mass. Kidneys and ureters: Normal. No mass. Stomach and bowel: Unremarkable. No obstruction. No mucosal thickening. Appendix: No evidence of appendicitis. Bladder: Urinary bladder wall thickening has improved since the comparison study. Reproductive: Unremarkable as visualized. Intraperitoneal space: At this point the abdominal fluid collection has not significantly changed in size. Lymph nodes: No lymphadenopathy. Bones/joints: No acute fracture. No dislocation. Soft tissues: There is mild body wall edema, mild left lower extremity edema and severe right lower extremity soft tissue edema. Preperitoneal edema is stable. IMPRESSION: 1. Subcutaneous edema which has progressed since the comparison study. 2. Pelvic inflammatory changes and fluid collections have not changed significantly since the comparison study 5 days ago. 3. Aorta, iliacs and bilateral lower extremity runoff vessels are widely patent. Dictated and Authenticated by: Jorge Dumont MD. Ordering:JENNIFER Rowan MD
--- NOTE | 2018-08-28 23:59 | ED.GENADUL_ITS ---
Discharge Plan Disposition Patient Disposition: [facility] INPATIENT Condition: Serious Discharge Details Chief Complaint: GenMedical Clinical Impression: DVT (deep venous thrombosis), Pulmonary emboli, Acute hypokalemia Admit Date/Time: 08/29/18 00:34 Admit Provider: Filippo Waggoner Attending Provider: Filippo Waggoner Primary Care Provider: Tg Stevenson ED Provider: Harpal Valerio Hospital Course Hospital Course: Chief Complaint: RLE Swelling HPI: 72-year-old woman with a past medical history significant for Endometrial Ca s/p recent Hysterectomy, admitted from [facility] Emergency Department on 08/29 with a diagnosis of probable RLE DVT with acute PE's. Mrs. Rios has a past Medical History significant for obesity, HTN, and dyslipidemia. She was recently diagnosed with a Stage 1A Grade 2 Endometrioid Adenocarcinoma, s/p TLH with BSO, SLN injection, and mapping with biopsies. She was found to have no residual disease on August 12, 2018. Her procedure was complicated by development of a pelvic abscess, hospitalized back at [facility] until 08/26/2018 and treated with pelvic drain and antibiotics. The patient presented to the ED on the night of her admission with complaints of RLE swelling with acute onset dyspnea. Work-up was significant for a leukocytosis and hypokalemia. CT of the chest showed evidence of b/l PEs with mild to moderate clot burden and without evidence of RV Strain. Bilateral angiogram runoff of the abdominal aorta and bilateral lower extremities showed subcutaneous edema and pelvic inflammatory changes, along with fluid collection unchanged from previous CT scan done 5 days prior - the aorta, iliacs, and b/l LE runoff vessels were widely patent. The patient was started on therapeutic Enoxaparin and referred for admission for further evaluation and treatment. Hospital Course: (1) Pulmonary embolism: Evidence of b/l PEs with mild to moderate clot burden and no RV Strain. Patient has had no signs of hemodynamic instability and in fact remains hypertensive. She is also not hypoxic. Due to lack of ultrasound availability a RLE DVT could not be confirmed, but strongly suspected clnically. DVT/PE occured in patient with underlying malignancy - however, she is s/p hysterectomy and b/l Salpingo-oophrectomy, as well as rehospitalization for an abdominal abscess, with self-reported extensive immobility following - confirmed by daughter. Very likely that this is a provoked clot in setting of surgery and post-op immobility. Discussed case with [facility] Oncology - will forego treatment with Lovenox and change to Apixaban, with follow-up with Oncology soon after discharge. A lower extremity ultrasound would ideally also need to be scheduled. Patient's daily aspirin and ibuprofen will be stopped, and she will be initiated on daily PPI for GI Protection. (2) Right leg DVT: Suspected. Treatment and work-up as above. (3) Endometrial cancer determined by uterine biopsy: Follow up w [facility] Dr. Jared hill at [facility] upon discharge from [facility] (4) Pelvic abscess: Continue current oral antibiotics of Levaquin and Metronidazole, Please note that patient had a one time fever prior to discharge, but remains stable with a decreasing WBC (30 on 08/23, 21 on 08/28 --> 18.1 --> 16 at time of discharge), and remains on antibiotics. She also has a LE DVT and acute PEs. Will monitor symptoms at home closely. Discharge Instructions Instructions: Pulmonary Embolism (DC), Deep Venous Thrombosis (DC) Additional Instructions: Please your primary care doctor and your oncologist over the next 1-2 weeks. Please stop your daily aspirin and ibuprofen. You will take 10mg of your new medication eliquis twice a day starting tonight for 6 more days, then you will continue this medication but at 5mg twice a day indefinitely after. Please return to the Emergency Room if you experience a sudden onset of chest pain, worsening SOB, or sweating. Discharge Data Discharge Date/Time-TO BE ENTERED AT DEPARTURE: 08/29/18 02:41 Medical Decision Making Patient presenting to the emergency department at request of home health for chief complaint of right leg swelling and low oxygen. Patient's daughter states that patient was feeling fine this morning and stated some mild leg pain this afternoon. Patient's daughter noted no other change in symptoms no leg swelling patient had no other complaints. Went home health assess patient around 5 PM patient's right leg was significantly swollen, patient stating medial thigh pain, and home health nurse had O2 saturation of 88% while patient was lying flat. Patient did state some dyspnea while lying flat but otherwise when she got up and ambulated she felt better. Home health nurse did state that oxygen was improved to 94% once patient got up and moving. Patient is postop hysterectomy and oophorectomy approximately 14 days ago with 5 days ago noting postoperative complication of abscess formation and drain placement. Patient states that her abdominal discomfort and other symptoms have significantly improved and no worsening of any of the operative complaints. Physical exam shows significant swelling to the left lower extremity with pulses present, cap refill normal, and some tenderness to palpation of the medial thigh. Otherwise exam nondiagnostic with clear lung sounds, regular rate and rhythm cardiac exam, soft nontender abdomen. Plan to check labs including d-dimer and bedside ultrasound. Due to significant swelling of the right lower extremity outside ultrasound was difficult to obtain any visualize thrombosis or deep pain. Review of labs show significantly elevated d-dimer of greater than 7500, continued leukocytosis but improved from 5 days ago, and hypokalemia 2.6. Plan to give IV potassium and do CT imaging to evaluate for PE and also given significance of swelling to do runoff of the extremity. Radiologist interpretation shows: Pulmonary emboli. Small to moderate clot burden. No evidence of heart strain. Subcutaneous edema which has progressed since the comparison study. Pelvic inflammatory changes and fluid collections have not changed significantly since the comparison study 5 days ago. Aorta, iliacs and bilateral lower extremity runoff vessels are widely patent. Given findings of pulmonary emboli with small to moderate clot burden patient was placed upon heparin and I do feel that patient needs admission for continued anticoagulation, observation, and ultrasound imaging of the right lower extremity when available. Did discuss with patient and family risk versus benefit of heparin and they were not opposed to starting this therapy. Spoke with hospitalist, Dr. Avila to have patient admitted. He recommended Lovenox and heparin had not been started so order was placed. Patient was in agreement with plan of care to be admitted. HPI General Mode of arrival: wheelchair . Date/Time Provider Initiated Documentation: 08/28/18 19:42 . Limitations to Documentation: no limitations . Information obtained by: patient, family, RN notes reviewed and old records reviewed . History of Present Illness 72 year old F presents to the emergency department with the chief complaint of swollen leg, described as moderate, with intensity rated at 2. Quality is described as aching, and is localized to the right and lower extremity. Patient started experiencing this hour(s) (3) and it has been constant. Patient did receive the following treatments prior to arrival, none Related Data Home Medications Medication Instructions Recorded Confirmed multivitamin [Daily Vitamin] 1 ea PO DAILY 07/13/12 08/28/18 ascorbic acid (vitamin C) [Vitamin 500 mg PO DAILY tab 04/04/14 08/28/18 C] cholecalciferol (vitamin D3) 2,000 unit PO DAILY 04/04/14 08/28/18 melatonin-pyridoxine HCl (B6) 1 ea PO HS 04/04/14 08/28/18 vitamin B complex [B-Complex] 1 ea PO DAILY tab 04/04/14 08/28/18 triamcinolone acetonide 1 renetta TOPICAL BID PRN #1 tube 12/25/14 08/28/18 hydrocortisone 1 inch TOPICAL TID #1 tube 08/27/15 08/28/18 losartan 100 mg PO DAILY 90 Days #90 tab-cap 07/13/17 08/28/18 nystatin 100,000 unit/gram topical 1 applic TP TID PRN #60 gm 06/16/18 08/28/18 cream atorvastatin 40 mg PO DAILY 06/17/18 08/28/18 omega-3 fatty acids-fish oil [Fish 1 cap PO DAILY 06/17/18 08/28/18 Oil] amlodipine 10 mg tablet 10 mg PO DAILY #90 tab 06/21/18 08/28/18 levofloxacin 750 mg PO DAILY 08/28/18 08/28/18 metronidazole 500 mg PO TID 08/28/18 08/28/18 oxycodone 5 mg PO Q4H PRN PRN 08/28/18 08/28/18 apixaban [Eliquis] 5 mg PO BID #60 tab 08/30/18 apixaban [Eliquis] 10 mg PO BID #12 tab 08/30/18 pantoprazole [Protonix] 40 mg PO DAILY #30 tab 08/30/18 Previous Rx's Medication Instructions Recorded losartan 100 mg PO DAILY 90 Days #90 tab-cap 07/13/17 nystatin 100,000 unit/gram topical 1 applic TP TID PRN #60 gm 06/16/18 cream amlodipine 10 mg tablet 10 mg PO DAILY #90 tab 06/21/18 apixaban [Eliquis] 5 mg PO BID #60 tab 08/30/18 apixaban [Eliquis] 10 mg PO BID #12 tab 08/30/18 pantoprazole [Protonix] 40 mg PO DAILY #30 tab 08/30/18 Allergies Allergy/AdvReac Type Severity Reaction Status Date / Time lisinopril AdvReac ? dry cough Verified 08/28/18 19:46 General Stated Complaint: GenMedical RAMEZ: 3 Review of Systems Constitutional Denies chills, Denies fever(s) and Denies headache(s) ENT Denies headache(s) Cardiovascular Denies chest pain, Denies irregular heart rhythm, Reports claudication, Reports leg edema, Denies lightheadedness and Reports dyspnea (with lying flat) Respiratory Denies cough, Denies hemoptysis and Reports dyspnea (with lying flat) Gastrointestinal Denies abdominal pain Musculoskeletal Reports as per HPI Neurologic Denies confusion, Denies headache(s) and Denies sensory deficit Psychiatric Denies confusion [facility] Medical History Pelvic abscess (Acute) Right leg DVT (Suspected) Pulmonary embolism (Acute) Endometrial cancer determined by uterine biopsy (Acute ~06/2018) Adenoma of large intestine (Chronic 08/03/98) 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 Father Myocardial infarction Son Age: 50 No problems noted. Daughter Age: 54 Diabetes Social History Smoking/Tobacco Use Status: Never Alcohol Intake: never Drug use: Never Substance use type: does not use Do you feel safe at home: Yes Do you feel safe in your relationship?: Yes Exam Const General: cooperative, healthy appearing, comfortable and no acute distress Orientation: alert, awake and oriented x3 Resp Effort & Inspection: normal respiratory effort and able to speak in complete sentences Auscultation: clear to auscultation bilaterally Cardio Rate: regular rate Rhythm: regular rhythm Heart Sounds: S1 normal and S2 normal Pulses: normal peripheral pulses GI Inspection: other (Drain is present intact without erythema) Palpation: soft, not firm, not rigid and nontender Auscultation: normal bowel sounds Neuro General: alert, awake, oriented x3, moves all extremities and no focal motor deficits Extrem Right lower extremity: normal capillary refill, edema Details: 2+ (Throughout the entirety of the right lower extremity), hip/thigh Details: tenderness Location: of the mid upper leg Location: medially and foot Details: normal capillary refill and vascular exam Details: dorsalis pedis pulse present and posterior tibial pulse present; not cool; no cyanosis Course Vital Signs Temperature 36.8 C 08/28/18 19:40 Pulse 95 H 08/28/18 19:40 Respiratory Rate 20 08/28/18 19:40 Blood Pressure 129/51 L 08/28/18 19:40 Pulse Oximetry 94 L 08/28/18 19:40 Temperature 36.8 C 08/28/18 19:40 Temperature Source Temporal Artery Scan 08/28/18 19:40 Pulse 87 08/28/18 21:26 Respiratory Rate 18 08/28/18 21:26 Respiratory Effort Non-Labored 08/28/18 20:15 Respiratory Depth Normal 08/28/18 20:15 Respiratory Pattern Normal 08/28/18 20:15 Blood Pressure 039/59 L 08/28/18 21:26 Blood Pressure Position Sitting 08/28/18 19:40 Pulse Oximetry 94 L 08/28/18 21:26 Oxygen Delivery Method Room Air 08/28/18 21:26 Oxygen Flow Rate 0 08/28/18 21:26 Pain Level 0 08/28/18 21:26 Lab/Test Results Lab/Test Results: Laboratory Tests Range/Units 08/28/18 08/28/18 08/28/18 20:10 20:10 20:10 WBC (4.4-10.8) k/cumm 21.47 H RBC (4.00-5.20) m/cumm 4.73 Hgb (12.0-15.5) g/dL 13.2 Hct (36.0-46.0) % 40.5 MCV (80-95) fL 85.6 MCH (27.0-33.0) pg 27.9 MCHC (32.0-36.0) g/dL 32.6 RDW (11.7-14.6) % 14.5 Plt Count (130-400) x1000/uL 244 MPV (8.0-11.0) fL 9.7 Immature Gran % 0.0 Neutrophils % 74.0 Band Neutrophils % % 6.0 Lymphocytes % 5.0 Monocytes % 8.0 Eosinophils % 2.0 Basophils % 0.0 Metamyelocytes % % 3.0 Myelocytes % % 1.0 Absolute Neutrophils (1.2-6.7) k/cumm 17.18 H Absolute Lymphocytes (1.2-3.4) k/cumm 1.07 L Absolute Monocytes (0.11-0.7) k/cumm 1.72 H Absolute Eosinophils (0.0-0.7) k/cumm 0.43 Absolute Basophils (0.0-0.2) k/cumm 0.00 Differential Comment Manual differential RBC Morphology See below Polychromasia Present D-Dimer (<500) ng/mlFEU > 7500 H Sodium (136-145) mmol/L 138 Potassium (3.5-5.1) mmol/L 2.6 L* Chloride (98-107) mmol/L 100 Carbon Dioxide (21.0-32.0) mmol/L 25.5 Anion Gap (3-11) mmol/L 12.5 H BUN (7-18) mg/dL 24 H Creatinine (0.55-1.02) mg/dL 0.70 Estimated GFR/1.73 m2 (mL/min/1.73m2) >= 60.00 Glucose (70-100) mg/dL 166 H Calcium (8.5-10.1) mg/dL 10.1 Total Bilirubin (0.2-1.0) mg/dL 0.5 AST (15-37) U/L 44 H ALT (12-78) U/L 27 Alkaline Phosphatase (46-116) U/L 105 Total Protein (6.4-8.2) g/dL 7.4 Albumin (3.4-5.0) g/dL 2.0 L
[2018-08-29] VITALS (40 sets, daily range): BP systolic 124–168; BP diastolic 52–71; PULSE 62–106; RESP 15–25; TEMP 36.5–37; O2SAT 89–96
[2018-08-29 00:32] LABS: Absolute Eosinophil Count 0.64 k/cumm (0.0-0.7)
[2018-08-29 00:35] LABS: INR 1.3 (0.9-1.1); PTT Activated 20.5 sec (21.0-31.4); Prothrombin Time 12.8 sec (9.3-11.0)
[2018-08-29] MEDS: POTASSIUM CHLORIDE 10 MEQ/100 ML BAG 100 MEQ IVPB (00:43)
[2018-08-29] MEDS: Enoxaparin 80 MG/0.8 ML SYR 71 MG SC (00:50)
--- NOTE | 2018-08-29 02:09 | W.PM.HP.N ---
Date of service: 08/29/18 Time of Service: 02:09 Assessment and Plan (1) Pulmonary embolism: Current visit: Yes Status: Acute continue lovenox at 1 mg/kg SC Q12hr (2) Right leg DVT: Current visit: Yes Status: Suspected lovenox as outlined above (3) Endometrial cancer determined by uterine biopsy: Current visit: No Status: Acute follow up w/ her ARTIST REPRESENTATIVE oncologist Dr. Jared sexton at [facility] upon discharge from [facility] (4) Essential (primary) hypertension: Current visit: No Status: Acute continue home meds of amlodipine (5) Pelvic abscess: Current visit: Yes Status: Acute continue current oral antibiotics of Levaquin and Metronidazole, (6) Diarrhea: Current visit: Yes Status: Acute probably related to antibiotics. Will check for C difficile and if negative then give her imodium on basis. Otherwise will give probiotics Qualifiers: Diarrhea type: unspecified type Qualified Code(s): R19.7 - Diarrhea, unspecified (7) Hypokalemia: Current visit: Yes Status: Acute patient given iv replacement; I will also give her oral replacement as well and repeat her labs in the a.m. History of Present Illness Chief Complaint: right leg swelling Narrative: 72-year-old female with past medical history of obesity, hypertension, hyperlipidemia who recently underwent abdominal hysterectomy and bilateral salpingo-oophorectomy and sentinel lymph node sampling for grade 2 endometrial cancer. Her preoperative biopsy revealed endometrial adenocarcinoma FIGO grade 2. She underwent RA TLH with BSO and SLN injection and mapping with biopsies and found to have stage Ia with no gross residual disease on August 12, 2018. This was complicated by development of a pelvic abscess for which she presented to the emergency room at [facility] on August 23, 2018 and transferred to [facility] where she was hospitalized from 11/23/2017 through August 26, 2018. She was followed by Dr. Jared Sexton her ARTIST REPRESENTATIVE oncologist. She had a pelvic drain placed and she was placed on antibiotics. She was initially started on IV Zosyn and later transition to oral antibiotics upon discharged on August 26, 2018 she was sent home on a course of Levaquin 750 mg daily for 3 weeks along with metronidazole. She now presents to the emergency room at [facility] with complaints of right leg swelling and some shortness of breath. Diagnostic work-up includes laboratory studies that shows a white cell count 21,000 no anemia. Her d-dimer is greater than 7500. Chemistry profile is remarkable for a low potassium at 2.6 and elevated glucose of 166. Albumin is low 2.0. Diagnostic imaging included a CTA of her chest as well as bilateral angiogram of the abdominal aorta and lower extremities. CT of the chest showed scattered few segmental sized pulmonary emboli bilaterally and nonocclusive thrombus in the left lower lobe pulmonary artery but no large central emboli. Aorta was unremarkable. Lungs showed small amount of dependent atelectasis. Heart was unremarkable. Bilateral angiogram runoff of the abdominal aorta and bilateral lower extremities showed subcutaneous edema and pelvic inflammatory changes and fluid collection unchanged from previous CT scan done 5 days prior but the aorta and iliacs and bilateral lower extremity runoff vessels were widely patent. Patient was started on Lovenox and she is now admitted to the hospital for treatment of bilateral pulmonary emboli and probable DVT in her right leg. Review of Systems Review of Systems All systems reviewed & are unremarkable except as noted in HPI and below PFSH Medical History Heart murmur (Acute) Hyperlipemia (Acute) HTN (hypertension) (Chronic) Kidney stones (Chronic) Surgical History History of colonoscopy with polypectomy (Acute) History of lumpectomy (Acute) History of lumpectomy of both breasts (Acute) Family History Mother No problems noted. Father Myocardial infarction Son Age: 50 No problems noted. Daughter Age: 54 Diabetes Social History Smoking/Tobacco Use Status: Never Alcohol Intake: never Drug use: Never Substance use type: does not use Do you feel safe at home: Yes Do you feel safe in your relationship?: Yes Meds Home Medications Medication Instructions Recorded Confirmed Type aspirin [Aspirin Low-Strength] 81 mg PO DAILY tab-cap 07/13/12 08/28/18 History multivitamin [Daily Vitamin] 1 ea PO DAILY 07/13/12 08/28/18 History ascorbic acid (vitamin C) [Vitamin 500 mg PO DAILY tab 04/04/14 08/28/18 History C] cholecalciferol (vitamin D3) 2,000 unit PO DAILY 04/04/14 08/28/18 History melatonin-pyridoxine HCl (B6) 1 ea PO HS 04/04/14 08/28/18 History vitamin B complex [B-Complex] 1 ea PO DAILY tab 04/04/14 08/28/18 History triamcinolone acetonide 1 renetta TOPICAL BID PRN #1 tube 12/25/14 08/28/18 History ibuprofen [Advil] 400 mg PO QID #20 tab 05/14/15 08/28/18 Rx hydrocortisone 1 inch TOPICAL TID #1 tube 08/27/15 08/28/18 History losartan 100 mg PO DAILY 90 Days #90 tab-cap 07/13/17 08/28/18 Rx nystatin 100,000 unit/gram topical 1 applic TP TID PRN #60 gm 06/16/18 08/28/18 Rx cream atorvastatin 40 mg PO DAILY 06/17/18 08/28/18 History omega-3 fatty acids-fish oil [Fish 1 cap PO DAILY 06/17/18 08/28/18 History Oil] amlodipine 10 mg tablet 10 mg PO DAILY #90 tab 06/21/18 08/28/18 Rx levofloxacin 750 mg PO DAILY 08/28/18 08/28/18 History metronidazole 500 mg PO TID 08/28/18 08/28/18 History oxycodone 5 mg PO Q4H PRN PRN 08/28/18 08/28/18 History Allergies Allergy/AdvReac Type Severity Reaction Status Date / Time lisinopril AdvReac ? dry cough Verified 08/28/18 19:46 Exam Const General: cooperative, comfortable, no acute distress and ill appearing chronically Nutritional Appearance: overweight Orientation: alert, awake and oriented x3 Neck Neck: normal visual inspection, full ROM, no lymphadenopathy, trachea midline, supple and no JVD Carotids: normal carotid upstroke Lymphatic: no lymphadenopathy noted Resp Effort & Inspection: normal respiratory effort and able to speak in complete sentences Auscultation: clear to auscultation bilaterally Cardio Jugular venous pressure: no JVD Palpation: normal PMI Rate: regular rate Rhythm: regular rhythm Heart Sounds: S1 normal, S2 normal and normal, physiologic split S2 Pulses: normal peripheral pulses GI Inspection: normal to inspection, obesity and scar (visible laparoscopic scars and drainage tube from RLQ draining purulence) Palpation: soft and no hepatosplenomegaly Percussion: normal to percussion Auscultation: normal bowel sounds Back/Spine/Pelvis Back: no CVA tenderness Skin General skin exam: no rashes or lesions noted Neuro General: alert, awake, oriented x3, moves all extremities and no focal motor deficits Cognition: normal cognition Speech: speech normal Extrem Right lower extremity: hip/thigh Details: swelling and lower leg Details: pitting edema Psych Appearance: grossly normal Mental Status: mental status grossly normal Speech and Movement: speech and movement normal Mood: congruent mood Affect: normal affect Attitude: cooperative Thought Process: normal Thought Content: normal Insight: insight good Judgment: judgment good Results Imaging CT scan - chest: report reviewed (IMPRESSION: Pulmonary emboli. Small to moderate clot burden. No evidence of heart strain.) and image reviewed Labs : 08/28/18 20:10 08/28/18 20:10 Laboratory Results - last 24 hr 08/28/18 08/28/18 08/28/18 20:10 20:10 20:10 WBC 21.47 H RBC 4.73 Hgb 13.2 Hct 40.5 MCV 85.6 MCH 27.9 MCHC 32.6 RDW 14.5 Plt Count 244 MPV 9.7 Immature Gran % 0.0 Neutrophils % 74.0 Band Neutrophils % 6.0 Lymphocytes % 5.0 Monocytes % 8.0 Eosinophils % 3.0 Basophils % 0.0 Metamyelocytes % 3.0 Myelocytes % 1.0 Absolute Neutrophils 17.18 H Absolute Lymphocytes 1.07 L Absolute Monocytes 1.72 H Absolute Eosinophils 0.64 Absolute Basophils 0.00 Differential Comment Manual differential RBC Morphology See below Polychromasia Present PT INR APTT D-Dimer > 7500 H Sodium 138 Potassium 2.6 L* Chloride 100 Carbon Dioxide 25.5 Anion Gap 12.5 H BUN 24 H Creatinine 0.70 Estimated GFR/1.73 m2 >= 60.00 Glucose 166 H Calcium 10.1 Total Bilirubin 0.5 AST 44 H ALT 27 Alkaline Phosphatase 105 Total Protein 7.4 Albumin 2.0 L 08/28/18 20:10 WBC RBC Hgb Hct MCV MCH MCHC RDW Plt Count MPV Immature Gran % Neutrophils % Band Neutrophils % Lymphocytes % Monocytes % Eosinophils % Basophils % Metamyelocytes % Myelocytes % Absolute Neutrophils Absolute Lymphocytes Absolute Monocytes Absolute Eosinophils Absolute Basophils Differential Comment RBC Morphology Polychromasia PT 12.8 H INR 1.3 H APTT 20.5 L D-Dimer Sodium Potassium Chloride Carbon Dioxide Anion Gap BUN Creatinine Estimated GFR/1.73 m2 Glucose Calcium Total Bilirubin AST ALT Alkaline Phosphatase Total Protein Albumin Last Vital Signs Temp 36.8 C 08/28/18 19:40 Pulse 87 08/28/18 21:26 Resp 18 08/28/18 21:26 BP 039/59 L 08/28/18 21:26 Pulse Ox 94 L 08/28/18 21:26
--- NOTE | 2018-08-29 02:17 | HPE_ITS ---
Date of service: 08/29/18 Time of Service: 02:09 Assessment and Plan (1) Pulmonary embolism: Current visit: Yes Status: Acute continue lovenox at 1 mg/kg SC Q12hr (2) Right leg DVT: Current visit: Yes Status: Suspected lovenox as outlined above (3) Endometrial cancer determined by uterine biopsy: Current visit: No Status: Acute follow up w/ her [employer] oncologist Dr. Jared sexton [place] [facility] [place] discharge from [facility] (4) Essential (primary) hypertension: Current visit: No Status: Acute continue home meds of amlodipine (5) Pelvic abscess: Current visit: Yes Status: Acute continue current oral antibiotics of Levaquin and Metronidazole, (6) Diarrhea: Current visit: Yes Status: Acute probably related to antibiotics. Will check for C difficile and if negative then give her imodium on basis. Otherwise will give probiotics Qualifiers: Diarrhea type: unspecified type Qualified Code(s): R19.7 - Diarrhea, unspecified (7) Hypokalemia: Current visit: Yes Status: Acute patient given iv replacement; I will also give her oral replacement as w ell and repeat her labs in the a.m. History of Present Illness Chief Complaint: right leg swelling Narrative: 72-year-old female with past medical history of obesity, hypertension, hyperlipidemia who recently underwent abdominal hysterectomy and bilateral salpingo-oophorectomy and sentinel lymph n ode sampling for grade 2 endometrial cancer. Her preoperative biopsy revealed endometrial adenocarcinoma FIGO grade 2. She underwent RA TLH with BSO and SLN injection and mapping with biopsies and found to have stage Ia with no gross residual disease on August 12, 2018. This was complicated by development of a pelvic abscess for which she presented to the emergency room at [facility] on August 23, 2018 and transferred to [facility] where she was hospitalized from 11/23/2017 through August 26, 2018. She was followed by Dr. Jared Sexton her SIDE [employer]WYER oncologist. She had a pelvic drain placed and she was placed on antibiotics. She was initially started on IV Zosyn and later transition to oral antibiotics upon discharged on August 26, 2018 she was sent home on a course of Levaquin 750 mg daily for 3 weeks along with metronidazole. She now presents to the emergency room at [facility] with complaints of right leg swelling and some shortness of breath. Diagnostic work-up includes laboratory studies that shows a white cell count 21,000 no anemia. Her d-dimer is greater than 7500. Chemistry profile is remarkable for a low potassium at 2.6 and elevated glucose of 166. Albumin is low 2.0. Diagnostic imaging included a CTA of her chest as well as bilateral angiogram of the abdominal aorta and lower extremities. CT of the chest showed scattered few segmental sized pulmonary emboli bilaterally and nonocclusive thrombus in the left lower lobe pulmonary artery but no large central emboli. Aorta was unremarkable. Lungs showed small amount of dependent atelectasis. Heart was unremarkable. Bilateral angiogram runoff of the abdominal aorta and bilateral lower extremities showed subcutaneous edema and pelvic inflammatory changes and fluid collection unchanged from previous CT scan done 5 days prior but the aorta and iliacs and bilateral lower extremity runoff vessels were widely patent. Patient was started on Lovenox and she is now admitted to the hospital for treatment of bilateral pulmonary emboli and probable DVT in her right leg. Review of Systems Review of Systems All systems reviewed & are unremarkable except as noted in HPI and below PFSH Medical History Heart murmur (Acute) Hyperlipemia (Acute) HTN (hypertension) (Chronic) Kidney stones (Chronic) Surgical History History of colonoscopy with polypectomy (Acute) History of lumpectomy (Acute) History of lumpectomy of both breasts (Acute) Family History Mother No problems noted. Father Myocardial infarction Son Age: 50 No problems noted. Daughter Age: 54 Diabetes Social History Smoking/Tobacco Use Status: Never Alcohol Intake: never Drug use: Never Substance use type: does not use Do you feel safe at home: Yes Do you feel safe in your relationship?: Yes Meds Home Medications Medication Instructions Recorded Confirmed Type aspirin [Aspirin Low-Strength] 81 mg PO DAILY tab-cap 07/13/12 08/28/18 History multivitamin [Daily Vitamin] 1 ea PO DAILY 07/13/12 08/28/18 History ascorbic acid (vitamin C) [Vitamin 500 mg PO DAILY tab 04/04/14 08/28/18 Histor y C] cholecalciferol (vitamin D3) 2,000 unit PO DAILY 04/04/14 08/28/18 History melatonin-pyridoxine HCl (B6) 1 ea PO HS 04/04/14 08/28/18 History vitamin B complex [B-Complex] 1 ea PO DAILY tab 04/04/14 08/28/18 History triamcinolone acetonide 1 renetta TOPICAL BID PRN #1 tube 12/25/14 08/28/18 History ibuprofen [Advil] 400 mg PO QID #20 tab 05/14/15 08/28/18 Rx hydrocortisone 1 inch TOPICAL TID #1 tube 08/27/15 08/28/18 History losartan 100 mg PO DAILY 90 Days #90 tab-cap 07/13/17 08/28/18 Rx nystatin 100,000 unit/gram topical 1 applic TP TID PRN #60 gm 06/16/18 08/28/18 Rx cream atorvastatin 40 mg PO DAILY 06/17/18 08/28/18 History omega-3 fatty acids-fish oil [Fish 1 cap PO DAILY 06/17/18 08/28/18 History Oil] amlodipine 10 mg tablet 10 mg PO DAILY #90 tab 06/21/18 08/28/18 Rx levofloxacin 750 mg PO DAILY 08/28/18 08/28/18 History metronidazole 500 mg PO TID 08/28/18 08/28/18 History oxycodone 5 mg PO Q4H PRN PRN 08/28/18 08/28/18 History Allergies Allergy/AdvReac Type Severity Reaction Status Date / Time lisinopril AdvReac ? dry cough Verified 08/28/18 19:46 Exam Const General: cooperative, comfortable, no acute distress and ill appearing chronically Nutritional Appearance: overweight Orientation: alert, awake and oriented x3 Neck Neck: normal visual inspection, full ROM, no lymphadenopathy, trachea midline, supple and no JVD Carotids: normal carotid upstroke Lymphatic: no lymphadenopathy noted Resp Effort & Inspection: normal respiratory effort and able to speak in complete sentences Auscultation: clear to auscultation bilaterally Cardio Jugular venous pressure: no JVD Palpation: normal PMI Rate: regular rate Rhythm: regular rhythm Heart Sounds: S1 normal, S2 normal and normal, physiologic split S2 Pulses: normal peripheral pulses GI Inspection: normal to inspection, obesity and scar (visible laparoscopic scars and drainage tube from RLQ draining purulence) Palpation: soft and no hepatosplenomegaly Percussion: normal to percussion Auscultation: normal bowel sounds Back/Spine/Pelvis Back: no CVA tenderness Skin General skin exam: no rashes or lesions noted Neuro General: alert, awake, oriented x3, moves all extremities and no focal motor deficits Cognition: normal cognition Speech: speech normal Extrem Right lower extremity: hip/thigh Details: swelling and lower leg Details: pitting edema Psych Appearance: grossly normal Mental Status: mental status grossly normal Speech and Movement: speech and movement normal Mood: congruent mood Affect: normal affect Attitude: cooperative Thought Process: normal Thought Content: normal Insight: insight good Judgment: judgment good Results Imaging CT scan - chest: report reviewed (IMPRESSION: Pulmonary emboli. Small to moderate clot burden. No evidence of heart strain.) and image reviewed Labs : 08/28/18 20:10 08/28/18 20:10 Laboratory Results - last 24 hr 08/28/18 08/28/18 08/28/18 20:10 20:10 20:10 WBC 21.47 H RBC 4.73 Hgb 13.2 Hct 40.5 MCV 85.6 MCH 27.9 MCHC 32.6 RDW 14.5 Plt Count 244 MPV 9.7 Immature Gran % 0.0 Neutrophils % 74.0 Band Neutrophils % 6.0 Lymphocytes % 5.0 Monocytes % 8.0 Eosinophils % 3.0 Basophils % 0.0 Metamyelocytes % 3.0 Myelocytes % 1.0 Absolute Neutrophils 17.18 H Absolute Lymphocytes 1.07 L Absolute Monocytes 1.72 H Absolute Eosinophils 0.64 Absolute Basophils 0.00 Differential Comment Manual differential RBC Morphology See below Polychromasia Present PT INR APTT D-Dimer > 7500 H Sodium 138 Potassium 2.6 L* Chloride 100 Carbon Dioxide 25.5 Anion Gap 12.5 H BUN 24 H Creatinine 0.70 Estimated GFR/1.73 m2 >= 60.00 Glucose 166 H Calcium 10.1 Total Bilirubin 0.5 AST 44 H ALT 27 Alkaline Phosphatase 105 Total Protein 7.4 Albumin 2.0 L 08/28/18 20:10 WBC RBC Hgb Hct MCV MCH MCHC RDW Plt Count MPV Immature Gran % Neutrophils % Band Neutrophils % Lymphocytes % Monocytes % Eosinophils % Basophils % Metamyelocytes % Myelocytes % Absolute Neutrophils Absolute Lymphocytes Absolute Monocytes Absolute Eosinophils Absolute Basophils Differential Comment RBC Morphology Polychromasia PT 12.8 H INR 1.3 H APTT 20.5 L D-Dimer Sodium Potassium Chloride Carbon Dioxide Anion Gap BUN Creatinine Estimated GFR/1.73 m2 Glucose Calcium Total Bilirubin AST ALT Alkaline Phosphatase Total Protein Albumin Last Vital Signs Temp 36.8 C 08/28/18 19:40 Pulse 87 08/28/18 21:26 Resp 18 08/28/18 21:26 BP 039/59 L 08/28/18 21:26 Pulse Ox 94 L 08/28/18 21:26
[2018-08-29] MEDS: oxyCODONE 5 MG TAB PO (03:27)
[2018-08-29] MEDS: Potassium Chloride 10 MEQ CAPCR 40 MEQ PO (03:28)
[2018-08-29] MEDS: POTASSIUM CHLORIDE/0.9% NACL 1,000 ML 80 MEQ IV (03:28)
[2018-08-29 05:59] LABS: Anion Gap 8.2 mmol/L (3-11); BUN 21 mg/dL (7-18); CO2 25.8 mmol/L (21.0-32.0); CREATININE 0.54 mg/dL (0.55-1.02); Calcium 9.3 mg/dL (8.5-10.1); Chloride 104 mmol/L (98-107); Glucose 123 mg/dL (70-100); Magnesium 1.9 mg/dL (1.8-2.4); Potassium 3.5 mmol/L (3.5-5.1); Sodium 138 mmol/L (136-145)
[2018-08-29 06:09] LABS: Abs Immature Grans 1.94 k/cumm (0.0-0.09); HCT 35.2 % (36.0-46.0); HGB 11.7 g/dL (12.0-15.5); Mean Corp. HGB Concentration 33.2 g/dL (32.0-36.0); Mean Corpuscular Hemoglobin 28.5 pg (27.0-33.0); Mean Corpuscular Volume 85.6 fL (80-95); Mean Platelet Volume 10.2 fL (8.0-11.0); Platelet Count 213 x1000/uL (130-400); RBC 4.11 m/cumm (4.00-5.20); RBC Distribution Width 14.3 % (11.7-14.6); White Blood Cell Count 18.11 k/cumm (4.4-10.8)
[2018-08-29 06:57] LABS: Absolute Lymphocyte Count 1.09 k/cumm (1.2-3.4); Absolute Monocyte Count 0.54 k/cumm (0.11-0.7); Absolute Neutrophil Count 14.85 k/cumm (1.2-6.7)
[2018-08-29 06:58] LABS: Diff Comment Manual Differential; Nucleated RBC 1 /100WBC; Promyelocytes % 1 %; RBC Morphology Normal
--- NOTE | 2018-08-29 08:18 | PDOC.CMIN ---
- If Service Date Differs Date of service: 08/29/18 Time of Service: 08:18 Care Management Initial Assess REASON FOR HOSPITALIZATION:: PE, RL DVT PAST MEDICAL HISTORY/PAST SURGICAL HISTORY:: Heart murmur, hyperlipidemia, HTN, kindey stones, PE (acute), DVT (acute), Endometrial CA. PREVIOUS FUNCTIONAL STATUS/SOCIAL/FAMILY SUPPORTS:: Candy lives in [place], [place] with her spouse Tonio. She has two children that are grown her daughter Vaishnavi she describes is supportive. 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 Her spouse Dwight is on chronic oxygen and she assists him at home. Candy recently had abdomial surgery, she has a MARGE drain and now has a DVT and multiple bilat PE's. She states her ambulation has been limited due to recent surgery and has required home health services to assist her in managing at home. At baseline Candy drive herself and is independnet with care. CURRENT FUNCTIONAL STATUS:: Candy is engaged with CM during assessment. She is able to discuss reason for admission and recent events. Her spouse and daughter are present at the bedside. Candy will plan to be discharged home on Eliquis and will continue follow up with outpatient providers. She continues on antibiotics she states she has not had any difficulty obtaining resources of services in the community. She reports she does have a FWW at home if she needs it for ambulation. ADVANCE DIRECTIVES:: On file at [facility] agent is Tonio (spouse). Has patient been provided with information about the portal?: Yes Did the patient sign up for the portal?: No CODE STATUS:: Full Code INSURANCE COVERAGE / FINANCIAL ISSUES:: Medicare part A and BCBS for med coverage CURRENT HOME/COMMUNITY SERVICES/EQUIPMENT:: Home health Nursing, MARGE drain and FWW PRIMARY CARE PHYSICIAN:: Tg Stevenson POTENTIAL DISCHARGE NEEDS:: Follow up with primary care, and oncologist as directed at time of discharge. Resumption of home health services for nursing and new prescription of Eliquis. PATIENT/FAMILY EDUCATION NEEDS:: Discharge instructions, limitations and follow up plan of care including ask me three and self management. ANTICIPATED BARRIERS TO DISCHARGE:: Access to medicaitons - has requested a prescirptions from provider to submit to pharmacy for approval prior to discharge. TRANSPORTATION:: Via private car with daughter at time of discharge. PLAN:: Candy will remain observation today for new onset DVT, and PE. She is receiving Lovenox SC and will transition to oral Eliquis prior to discharge. She will be discharged home when medically ready with family. CM to continue to provide support to patient and family ongoing discharge planning.
--- NOTE | 2018-08-29 08:21 | INITIAL_ITS ---
- If Service Date Differs Date of service: 08/29/18 Time of Service: 08:18 Care Management Initial Assess REASON FOR HOSPITALIZATION:: PE, RL DVT PAST MEDICAL HISTORY/PAST SURGICAL HISTORY:: Heart murmur, hyperlipidemia, HTN, kindey stones, PE (acute), DVT (acute), Endometrial CA. PREVIOUS FUNCTIONAL STATUS/SOCIAL/FAMILY SUPPORTS:: Candy lives in [place], [place] with her spouse Tonio. She has two children that are grown her daughter Vaishnavi she describes is supportive. 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 Candy recently had abdomial surgery, she has a MARGE drain and now has a DVT and multiple bilat PE's. She states her ambulation has been limited due to recent surgery and has required home health services to assist her in managing at home. At baseline Candy drive herself and is independnet with care. CURRENT FUNCTIONAL STATUS:: Candy is engaged with CM during assessment. She is able to discuss reason for admission and recent events. Her spouse and daughter are present at the bedside. Candy will plan to be discharged home on Eliquis and will continue follow up with outpatient providers. She continues on antibiotics she states she has not had any difficulty obtaining resources of services in the community. She reports she does have a FWW at home if she needs it for ambulation. ADVANCE DIRECTIVES:: On file at [facility] agent is Tonio (spouse). Has patient been provided with information about the portal?: Yes Did the patient sign up for the portal?: No CODE STATUS:: Full Code INSURANCE COVERAGE / FINANCIAL ISSUES:: Medicare part A and BCBS for med coverage CURRENT HOME/COMMUNITY SERVICES/EQUIPMENT:: Home health Nursing, MARGE drain and FWW PRIMARY CARE PHYSICIAN:: Tg Stevenson POTENTIAL DISCHARGE NEEDS:: Follow up with primary care, and oncologist as directed at time of discharge. Resumption of home health services for nursing and new prescription of Eliquis. PATIENT/FAMILY EDUCATION NEEDS:: Discharge instructions, limitations and follow up plan of care including ask me three and self management. ANTICIPATED BARRIERS TO DISCHARGE:: Access to medicaitons - has requested a prescirptions from provider to submit to pharmacy for approval prior to discharge. TRANSPORTATION:: Via private car with daughter at time of discharge. PLAN:: Candy will remain observation today for new onset DVT, and PE. She is receiving Lovenox SC and will transition to oral Eliquis prior to discharge. She will be discharged home when medically ready with family. CM to continue to provide support to patient and family ongoing discharge planning.
[2018-08-29] MEDS: Vitamins B Comp w/C TAB 1 TAB PO (08:56)
[2018-08-29] MEDS: Losartan 50 MG TAB 100 MG PO (08:56)
[2018-08-29] MEDS: Multivitamin TAB 1 TAB PO (08:56)
[2018-08-29] MEDS: Omega-3 Fatty Acids 1000 MG CAP PO (08:56)
[2018-08-29] MEDS: amLODIPine 10 MG TAB PO (08:57)
[2018-08-29] MEDS: Atorvastatin 40 MG TAB PO (08:57)
[2018-08-29] MEDS: Ascorbic Acid 500 MG TAB PO (08:57)
[2018-08-29] MEDS: Cholecalciferol (Vitamin D3) 1,000 UNIT TAB 2000 UNITS PO (08:57)
[2018-08-29] MEDS: metroNIDAZOLE 500 MG TAB PO ×3 (08:57→20:28)
[2018-08-29] MEDS: Magnesium Oxide 400 MG TAB PO (10:00)
[2018-08-29] MEDS: Potassium Chloride 10 MEQ CAPCR 20 MEQ PO ×2 (10:44→20:29)
--- NOTE | 2018-08-29 11:38 | PHARADMIT ---
Admission Pharmacy Clinical Review BILATERAL DVT, PE, HYPOKALEMIA Code Status Full Code Current Weight Wgt- 73 kg Renally Cleared and Narrow Therapeutic Index Meds CrCl~ 44.31 mL/min Meds-OK QTc Value / Action Taken QTc-412 NA BP Control, Fever BP- 156/61 Tmax- 36.8C Electrolytes reviewed Na- 138 K+3.5 (was2.6) Mag-1.9 DVT Prophylaxis Lovenox DC'd0 Apixaban Opiate Usage / Scheduled Bowel Regimen Ordered Yes, No BM regimen Plt/SCr for Heparin / Enoxaparin Plts-213 SCr-0.54 INR for Warfarin INR-1.3 H/H stable, WBC/Bands H&H- 11.7/35.2 WBC- 18.11 Antibiotic appropriateness Levaquin / Flagyl PO Cultures and Sensitivities Qrppa-Tjzbptitrwz-Heswgnf Surgical ABX d/c within 24 hr NA DM control / Insulin Dosing BG- 123 Heart Failure (Check EF%) (ABIDA's, B-Block, Diuretics) Norvasc, Losartan, IV to PO Switch No Home Meds Reviewed Yes Home Meds Not Ordered Ibuprofen, Comments
[2018-08-29] MEDS: Apixaban 5 MG TAB 10 MG PO ×2 (12:17→20:28)
[2018-08-29] MEDS: Pantoprazole 40 MG VIAL IVP (20:28)
[2018-08-29] MEDS: Acetaminophen 325 MG TAB PO (20:30)
[2018-08-29] MEDS: Normal Saline Flush 10 ML SYR IVP (20:31)
[2018-08-29] MEDS: Melatonin 3 MG TAB PO (20:49)
[2018-08-30] VITALS (12 sets, daily range): BP systolic 133–174; BP diastolic 48–63; PULSE 61–93; RESP 19–22; TEMP 36.1–39.6; O2SAT 93–98
[2018-08-30 06:38] LABS: Abs Immature Grans 1.41 k/cumm (0.0-0.09); HCT 36.7 % (36.0-46.0); Mean Corp. HGB Concentration 32.7 g/dL (32.0-36.0); Mean Corpuscular Hemoglobin 28.3 pg (27.0-33.0); Mean Corpuscular Volume 86.6 fL (80-95); RBC 4.24 m/cumm (4.00-5.20); RBC Distribution Width 14.7 % (11.7-14.6); White Blood Cell Count 16.76 k/cumm (4.4-10.8)
[2018-08-30 06:55] LABS: Anion Gap 10.5 mmol/L (3-11); BUN 19 mg/dL (7-18); CO2 25.5 mmol/L (21.0-32.0); CREATININE 0.54 mg/dL (0.55-1.02); Calcium 9.3 mg/dL (8.5-10.1); Chloride 103 mmol/L (98-107); Glucose 110 mg/dL (70-100); Magnesium 1.9 mg/dL (1.8-2.4); Potassium 3.9 mmol/L (3.5-5.1); Sodium 139 mmol/L (136-145)
[2018-08-30 08:00] LABS: Absolute Eosinophil Count 0.84 k/cumm (0.0-0.7); Absolute Lymphocyte Count 1.17 k/cumm (1.2-3.4); Absolute Monocyte Count 0.67 k/cumm (0.11-0.7); Absolute Neutrophil Count 13.07 k/cumm (1.2-6.7); Diff Comment Manual Differential; Polychromasia Present
[2018-08-30 08:01] LABS: Platelet Count 218 x1000/uL (130-400)
[2018-08-30] MEDS: Pantoprazole 40 MG VIAL IVP (08:20)
[2018-08-30] MEDS: Normal Saline Flush 10 ML SYR IVP (08:20)
[2018-08-30] MEDS: Vitamins B Comp w/C TAB 1 TAB PO (08:21)
[2018-08-30] MEDS: Potassium Chloride 10 MEQ CAPCR 20 MEQ PO (08:21)
[2018-08-30] MEDS: Cholecalciferol (Vitamin D3) 1,000 UNIT TAB 2000 UNITS PO (08:21)
[2018-08-30] MEDS: Losartan 50 MG TAB 100 MG PO (08:21)
[2018-08-30] MEDS: amLODIPine 10 MG TAB PO (08:22)
[2018-08-30] MEDS: Atorvastatin 40 MG TAB PO (08:22)
[2018-08-30] MEDS: Multivitamin TAB 1 TAB PO (08:25)
[2018-08-30] MEDS: metroNIDAZOLE 500 MG TAB PO ×2 (08:25→13:26)
[2018-08-30] MEDS: Ascorbic Acid 500 MG TAB PO (08:25)
[2018-08-30] MEDS: Apixaban 5 MG TAB 10 MG PO (08:26)
[2018-08-30] MEDS: Omega-3 Fatty Acids 1000 MG CAP PO (08:28)
[2018-08-30] MEDS: Acetaminophen 325 MG TAB PO (08:29)
--- NOTE | 2018-08-30 10:26 | PDOC.CMDIS ---
- If Service Date Differs Date of service: 08/30/18 Time of Service: 10:27 LACE Index Scoring Tool - Questions: Length of Stay (in days): 3 Acuity (Admit via E.D.?): Yes Comorbidities: Diabetes w/o Complication, Any Tumor E.D. Visits: 4 - Answers: Total Score: 13 Risk of Readmission: High Risk Care Management Discharge Reason for Hospitalization: PE, RL DVT Discharge Plan: Candy will be discharged home today with resumption of home health nursing and new eliquis. Candy states she is feelign improved today her family is present at the bedside and attentive. CM reviewd the plan for discharge with the patient and her family and discussed follow up care. Candy will need to have an outpatient u/s r/t new onsent DVT. U/S not available due to weekend and holiday services and will need to be done as outpatient. CM will fax note to Clincal coordinator at primary care and request follow up with the patient. Candy will trasnport home with family at time of discharge. CM verified pharmacy with the patient and home services. Patient/Family Education Needs: Discharge education, limitations and follow up plan of care including ask me three, medications and self management. Services Needed at Discharge: Home Health Care Services
[2018-08-30] MEDS: Magnesium Oxide 400 MG TAB PO (10:31)
[2018-08-30] MEDS: Potassium Chloride 10 MEQ TABCR PO (10:32)
--- NOTE | 2018-08-30 11:19 | W.PM.DS.N ---
Date of service: 08/30/18 Time of Service: 11:25 DS: Diagnosis Discharge Diagnosis (1) Pulmonary embolism: Status: Acute (2) Right leg DVT: Status: Suspected (3) Endometrial cancer determined by uterine biopsy: Status: Acute (4) Essential (primary) hypertension: Status: Chronic (5) Pelvic abscess: Status: Acute (6) Diarrhea: Status: Acute (7) Hypokalemia: Status: Acute Discharge Plan Disposition Condition: Serious Discharge Details Reason For Visit: DVT, PE, HYPOKALEMIA Admit Date/Time: 08/29/18 00:34 Admit Provider: Filippo Waggoner Attending Provider: Filippo Waggoner Primary Care Provider: Tg Stevenson Hospital Course Hospital Course: Chief Complaint: RLE Swelling HPI: 72-year-old woman with a past medical history significant for Endometrial Ca s/p recent Hysterectomy, admitted from [facility] Emergency Department on 08/29 with a diagnosis of probable RLE DVT with acute PE's. Mrs. Rios has a past Medical History significant for obesity, HTN, and dyslipidemia. She was recently diagnosed with a Stage 1A Grade 2 Endometrioid Adenocarcinoma, s/p TLH with BSO, SLN injection, and mapping with biopsies. She was found to have no residual disease on August 12, 2018. Her procedure was complicated by development of a pelvic abscess, hospitalized back at [facility] until 08/26/2018 and treated with pelvic drain and antibiotics. The patient presented to the ED on the night of her admission with complaints of RLE swelling with acute onset dyspnea. Work-up was significant for a leukocytosis and hypokalemia. CT of the chest showed evidence of b/l PEs with mild to moderate clot burden and without evidence of RV Strain. Bilateral angiogram runoff of the abdominal aorta and bilateral lower extremities showed subcutaneous edema and pelvic inflammatory changes, along with fluid collection unchanged from previous CT scan done 5 days prior - the aorta, iliacs, and b/l LE runoff vessels were widely patent. The patient was started on therapeutic Enoxaparin and referred for admission for further evaluation and treatment. Hospital Course: (1) Pulmonary embolism: Evidence of b/l PEs with mild to moderate clot burden and no RV Strain. Patient has had no signs of hemodynamic instability and in fact remains hypertensive. She is also not hypoxic. Due to lack of ultrasound availability a RLE DVT could not be confirmed, but strongly suspected clnically. DVT/PE occured in patient with underlying malignancy - however, she is s/p hysterectomy and b/l Salpingo-oophrectomy, as well as rehospitalization for an abdominal abscess, with self-reported extensive immobility following - confirmed by daughter. Very likely that this is a provoked clot in setting of surgery and post-op immobility. Discussed case with [facility] Oncology - will forego treatment with Lovenox and change to Apixaban, with follow-up with Oncology soon after discharge. A lower extremity ultrasound would ideally also need to be scheduled. Patient's daily aspirin and ibuprofen will be stopped, and she will be initiated on daily PPI for GI Protection. (2) Right leg DVT: Suspected. Treatment and work-up as above. (3) Endometrial cancer determined by uterine biopsy: Follow up w [facility] Dr. Jared hill at [facility] upon discharge from [facility] (4) Pelvic abscess: Continue current oral antibiotics of Levaquin and Metronidazole, Please note that patient had a one time fever prior to discharge, but remains stable with a decreasing WBC (30 on 08/23, 21 on 08/28 --> 18.1 --> 16 at time of discharge), and remains on antibiotics. She also has a LE DVT and acute PEs. Will monitor symptoms at home closely. Home Meds and New Rx's Prescriptions: New Eliquis 5 mg Tablet 10 mg PO BID Qty: 12 RF: 0 Eliquis 5 mg Tablet 5 mg PO BID Qty: 60 RF: 0 pantoprazole [Protonix] 40 mg tablet,delayed release (DR/EC) 40 mg PO DAILY Qty: 30 RF: 0 Continued nystatin 100,000 unit/gram cream 1 applic TP TID PRN (Reason: groin rash) Qty: 60 RF: 6 amlodipine 10 mg tablet 10 mg PO DAILY Qty: 90 RF: 3 multivitamin [Daily Vitamin] 1 EACH tablet 1 ea PO DAILY RF: 0 ascorbic acid (vitamin C) [Vitamin C] 500 MG tablet 500 mg PO DAILY RF: 0 vitamin B complex [B-Complex] 1 EACH tablet 1 ea PO DAILY RF: 0 cholecalciferol (vitamin D3) 1,000 UNIT tablet 2,000 unit PO DAILY RF: 0 melatonin-pyridoxine HCl (B6) 1 EACH tablet 1 ea PO HS RF: 0 triamcinolone acetonide 80 GM ointment 1 renetta Topical BID PRNQty: 1 RF: 1 hydrocortisone 30 GM ointment 1 inch Topical TID Qty: 1 RF: 6 losartan 100 MG tablet 100 mg PO DAILY 90 Days Qty: 90 RF: 3 omega-3 fatty acids-fish oil [Fish Oil] 360-1,200 mg Capsule 1 cap PO DAILY RF: 0 atorvastatin 80 mg tablet 40 mg PO DAILY RF: 0 metronidazole 500 mg Tablet 500 mg PO TID RF: 0 levofloxacin 750 mg Tablet 750 mg PO DAILY RF: 0 oxycodone 5 mg Tablet 5 mg PO Q4H PRN PRNRF: 0 Discontinued aspirin [Aspirin Low-Strength] 81 MG tablet,chewable 81 mg PO DAILY RF: 0 ibuprofen [Advil] 200 MG tablet 400 mg PO QID Qty: 20 RF: 0 Discharge Instructions Instructions: Pulmonary Embolism (DC), Deep Venous Thrombosis (DC) Additional Instructions: Please your primary care doctor and your oncologist over the next 1-2 weeks. Please stop your daily aspirin and ibuprofen. You will take 10mg of your new medication eliquis twice a day starting tonight for 6 more days, then you will continue this medication but at 5mg twice a day indefinitely after. Please return to the Emergency Room if you experience a sudden onset of chest pain, worsening SOB, or sweating. Activity:: No strenuous activity Activity:: No Strenuous Activity Equipment/Supplies:: No Equipment Needed Diet:: As Tolerated Discharge Orders Other Ambulatory Orders: US extremity venous BI (Routine) Location: Determined by Patient Ordered By: Alexander Toney DS: Data Vitals/I&O Vitals and I&O: Vital Signs Temperature 39.6 C H 08/30/18 09:02 Temperature Source Temporal Artery Scan 08/30/18 09:02 Pulse 91 H 08/30/18 08:40 Pulse Rhythm Regular 08/30/18 08:46 Pulse 90 08/30/18 08:40 Respiratory Rate 21 08/30/18 08:40 Respiratory Effort Non-Labored 08/30/18 08:46 Respiratory Depth Normal 08/30/18 08:46 Respiratory Pattern Normal 08/30/18 08:46 Blood Pressure 174/59 H 08/30/18 08:40 Blood Pressure Mean 90 08/30/18 08:40 Blood Pressure Position Supine 08/29/18 02:45 Pulse Oximetry 98 08/30/18 09:02 Oxygen Delivery Method Room Air 08/30/18 09:02 Oxygen Flow Rate 0 08/30/18 09:02 Pain Level 8 08/30/18 08:29 Intake & Output 08/29/18 08/29/18 08/30/18 11:59 23:59 11:59 Intake Total 650 / 2100 1450 / 2100 950 / 950 Output Total 860 / 1490 630 / 1490 1130 / 1130 Balance -210 / 610 820 / 610 -180 / -180 Weight 73 kg 73.5 kg Intake: IV 100 / 100 Oral 550 / 2000 1450 / 2000 950 / 950 Output: Drainage 30 / 30 60 / 60 Right Lower Lateral Abdomen 30 / 30 60 / 60 Urine 800 / 1400 600 / 1400 1070 / 1070 Other 60 / 60 Other: Urine Color Straw Light Kaycee Yellow Urine Appearance Clear Clear Clear Urine Odor None Normal Comment mixed w/ stool mixed w/ stool Stool Size Small Large Stool Characteristics Soft Soft Brown Brown Voiding Methods Bedpan Bedside Commode Bedside Commode Incontinent # Voids 1 Completed studies during hospitalization [Text1]: EXAM: CT Angiography Chest With Contrast EXAM DATE/TIME: 08/28/2018 9:24 PM CLINICAL HISTORY: 72 years old, female; Signs and symptoms and abnormal findings; Abnormal diagnostic tests; Shortness of breath; Patient HX: Right leg swelling, SOB, elevated d-dimer TECHNIQUE: Imaging protocol: Axial computed tomographic angiography images of the chest with intravenous contrast using CT angiography protocol. Coronal and sagittal reformatted images were created and reviewed. 3D rendering: MIP reconstructed images were created and reviewed. COMPARISON: No relevant prior studies available. FINDINGS: Pulmonary arteries: Scattered few segmental size pulmonary emboli bilaterally. There is a nonocclusive thrombus in the left lower lobe pulmonary artery. No large central emboli. Aorta: Unremarkable. No aortic aneurysm. No aortic dissection. Lungs: Small amount of dependent atelectasis. Pleural space: Unremarkable. No pneumothorax. No pleural effusion. Heart: Unremarkable. No pericardial effusion. No obvious heart strain. Lymph nodes: Unremarkable. No enlarged lymph nodes. Bones/joints: Unremarkable. No acute fracture. Soft tissues: Unremarkable. IMPRESSION: Pulmonary emboli. Small to moderate clot burden. No evidence of heart strain. EXAM: CT Bilateral Angiogram of the Abdominal Aorta and Bilateral Lower Extremities (Run-off) With IV Contrast EXAM DATE/TIME: 08/28/2018 9:24 PM CLINICAL HISTORY: 72 years old, female; Signs and symptoms and abnormal findings; Abnormal diagnostic tests; Shortness of breath; Patient HX: Right leg swelling, SOB, elevated d-dimer TECHNIQUE: Imaging protocol: Bilateral CT angiogram of the abdominal aorta, pelvis and bilateral lower extremities with IV iodinated contrast. COMPARISON: Abdomen and pelvis CT from 08/23/2018. FINDINGS: Tubes, catheters and devices: Interval placement of a pigtail drainage catheter into abdominal fluid collection. Aorta: No aortic aneurysm. No aortic dissection. Celiac trunk and mesenteric arteries: No occlusion or significant stenosis. Renal arteries: No occlusion or significant stenosis. Right iliac arteries: No occlusion or significant stenosis. Right femoral/popliteal arteries: No occlusion or significant stenosis. Right infrapopliteal arteries: No occlusion or significant stenosis. Left iliac arteries: No occlusion or significant stenosis. Left femoral/popliteal arteries: No occlusion or significant stenosis. Left infrapopliteal arteries: No occlusion or significant stenosis. Liver: No mass. Gallbladder and bile ducts: Unremarkable. No calcified stones. No ductal dilation. Pancreas: Unremarkable. No mass. No ductal dilation. Spleen: Normal. No splenomegaly. Adrenals: Normal. No mass. Kidneys and ureters: Normal. No mass. Stomach and bowel: Unremarkable. No obstruction. No mucosal thickening. Appendix: No evidence of appendicitis. Bladder: Urinary bladder wall thickening has improved since the comparison study. Reproductive: Unremarkable as visualized. Intraperitoneal space: At this point the abdominal fluid collection has not significantly changed in size. Lymph nodes: No lymphadenopathy. Bones/joints: No acute fracture. No dislocation. Soft tissues: There is mild body wall edema, mild left lower extremity edema and severe right lower extremity soft tissue edema. Preperitoneal edema is stable. IMPRESSION: 1. Subcutaneous edema which has progressed since the comparison study. 2. Pelvic inflammatory changes and fluid collections have not changed significantly since the comparison study 5 days ago. 3. Aorta, iliacs and bilateral lower extremity runoff vessels are widely patent. Labs on day of discharge: Labs from last 24 hours 08/30/18 08/30/18 06:16 06:16 WBC 16.76 H RBC 4.24 Hgb 12.0 Hct 36.7 MCV 86.6 MCH 28.3 MCHC 32.7 RDW 14.7 H Plt Count 218 MPV 10.0 Immature Gran % 0.0 Neutrophils % 75.0 Band Neutrophils % 3.0 Lymphocytes % 7.0 Monocytes % 4.0 Eosinophils % 5.0 Basophils % 0.0 Metamyelocytes % 4.0 Myelocytes % 2.0 Absolute Neutrophils 13.07 H Absolute Lymphocytes 1.17 L Absolute Monocytes 0.67 Absolute Eosinophils 0.84 H Absolute Basophils 0.00 Differential Comment Manual differential RBC Morphology See below Polychromasia Present Sodium 139 Potassium 3.9 Chloride 103 Carbon Dioxide 25.5 Anion Gap 10.5 BUN 19 H Creatinine 0.54 L Estimated GFR/1.73 m2 >= 60.00 Glucose 110 H Calcium 9.3 Magnesium 1.9 C Difficile Screen Final 08/29/18-1626 C Difficile Antigen Negative C Difficile Toxin Negative Interpretation Negative for toxigenic Clostridium difficile [facility] Medical History Pelvic abscess (Acute) Right leg DVT (Suspected) Pulmonary embolism (Acute) Endometrial cancer determined by uterine biopsy (Acute ~06/2018) Adenoma of large intestine (Chronic 08/03/98) 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 Father Myocardial infarction Son Age: 50 No problems noted. Daughter Age: 54 Diabetes Social History Smoking/Tobacco Use Status: Never Alcohol Intake: never Drug use: Never Substance use type: does not use Do you feel safe at home: Yes Do you feel safe in your relationship?: Yes
--- NOTE | 2018-08-30 13:16 | CHAPLAIN ---
Candy was in bed visiting with her Tonio when I stopped in. She told me she is fine and hopes to be going home today. She complimented the care she received here, but is looking forward to be back in her own house, she said.
[2018-08-30] MEDS: oxyCODONE 5 MG TAB PO (13:26)
== END 2018-08-30 13:45 | disposition home or self-care (01) | DRG 300 ==
LOC: ER 08-29 01:04 → ICU 08-29 02:41
PROVIDERS: Admitting Provider Internal Medicine; Emergency Provider Nurse Practitioner Family; PCP Nurse Practitioner; Visit Provider Internal Medicine
DX: T81.718A Complication of other artery following a procedure, not elsewhere classified, initial encounter (principal); I82.401 Acute embolism and thrombosis of unspecified deep veins of right lower extremity; I26.99 Other pulmonary embolism without acute cor pulmonale; N73.5 Female pelvic peritonitis, unspecified; C54.1 Malignant neoplasm of endometrium; I10 Essential (primary) hypertension; Z90.710 Acquired absence of both cervix and uterus; Z90.79 Acquired absence of other genital organ(s); Z90.722 Acquired absence of ovaries, bilateral; E87.6 Hypokalemia; R19.7 Diarrhea, unspecified; R19.5 Other fecal abnormalities
CPT/HCPCS: 36415; 71275; 75635; 80048; 80053; 96365; 96366; 96368; 99223; 99239; 99285; 83630; 83735; 85025; 85379; 85610; 85730; 87324; 99284; J1650; J3480; J3490

== ENCOUNTER 2018-08-31 11:06 | Outpatient (CLI) | payer BC, SELFPAY ==
--- NOTE | 2018-08-31 13:42 | DI.US_ITS ---
SYMPTOMS/DIAGNOSIS: RIGHT LOWER EXTREMITY SWELLING, SUSPECTED RIGHT LOWER EXTREMITY DVT, ACUTE PE BILATERAL LOWER EXTREMITY ULTRASOUND: The deep veins of the left lower extremity show normal compression, augmentation and color flow. There is no evidence of a deep venous thrombus in the left lower extremity. In the right lower extremity, there is hypoechoic thrombus seen extending from the common femoral vein inferiorly through the femoral and popliteal veins into the level of the mid posterior tibialis vein. There is also hypoechoic thrombus seen extending into the proximal greatest saphenous vein. IMPRESSION: 1. No evidence of a left lower extremity deep venous thrombus. 2. Extensive right lower extremity DVT extending from the common femoral vein through the thigh to the level of the mid posterior tibialis vein. There is also involvement of the proximal greater saphenous vein.
== END 2018-08-31 11:26 ==
PROVIDERS: PCP Nurse Practitioner; Visit Provider Internal Medicine
DX: R22.41 Localized swelling, mass and lump, right lower limb (principal); I82.411 Acute embolism and thrombosis of right femoral vein; I82.441 Acute embolism and thrombosis of right tibial vein
CPT/HCPCS: 93970

== ENCOUNTER 2018-09-03 11:11 | Emergency (ER) | payer BC, SELFPAY ==
[2018-09-03] VITALS (64 sets, daily range): BP systolic 123–173; BP diastolic 50–91; PULSE 102–123; RESP 12–26; TEMP 36.9; O2SAT 88–99
--- NOTE | 2018-09-03 11:35 | ED.GENADUL_ITS ---
Discharge Plan Disposition Patient Disposition: [facility] Condition: Poor Discharge Details Chief Complaint: SOB Clinical Impression: Pulmonary embolism, Hypoxia, DVT (deep venous thrombosis) Primary Care Provider: Tg Stevenson ED Provider: Harpal Valerio Home Meds and New Rx's Prescriptions: No Action nystatin 100,000 unit/gram cream 1 applic TP TID PRN (Reason: groin rash) Qty: 60 RF: 6 amlodipine 10 mg tablet 10 mg PO DAILY Qty: 90 RF: 3 multivitamin [Daily Vitamin] 1 EACH tablet 1 ea PO DAILY RF: 0 ascorbic acid (vitamin C) [Vitamin C] 500 MG tablet 500 mg PO DAILY RF: 0 vitamin B complex [B-Complex] 1 EACH tablet 1 ea PO DAILY RF: 0 cholecalciferol (vitamin D3) 1,000 UNIT tablet 2,000 unit PO DAILY RF: 0 melatonin-pyridoxine HCl (B6) 1 EACH tablet 1 ea PO HS RF: 0 triamcinolone acetonide 80 GM ointment 1 renetta Topical BID PRNQty: 1 RF: 1 hydrocortisone 30 GM ointment 1 inch Topical TID Qty: 1 RF: 6 losartan 100 MG tablet 100 mg PO DAILY 90 Days Qty: 90 RF: 3 omega-3 fatty acids-fish oil [Fish Oil] 360-1,200 mg Capsule 1 cap PO DAILY RF: 0 atorvastatin 80 mg tablet 40 mg PO DAILY RF: 0 metronidazole 500 mg Tablet 500 mg PO TID RF: 0 levofloxacin 750 mg Tablet 750 mg PO DAILY RF: 0 oxycodone 5 mg Tablet 5 mg PO Q4H PRN PRNRF: 0 Eliquis 5 mg Tablet 10 mg PO BID Qty: 12 RF: 0 Eliquis 5 mg Tablet 5 mg PO BID Qty: 60 RF: 0 pantoprazole [Protonix] 40 mg tablet,delayed release (DR/EC) 40 mg PO DAILY Qty: 30 RF: 0 Discharge Data Discharge Date/Time-TO BE ENTERED AT DEPARTURE: 09/03/18 17:43 Medical Decision Making Patient presenting to the emergency department for chief complaint of shortness of breath. Patient states proximally 1 hour prior to arrival she was sitting on the couch watching TV when all of a sudden she had significant episode of feeling short of breath and felt like she was going to pass out. This passed after couple minutes but given her recent diagnosis of DVT and PE she became worried and called ambulance. I did see patient and have patient admitted for the episode of DVT and PE 5 days ago. She does state the episode has resolved. Physical exam shows significant tachycardia with hypoxia of 88% patient denies any chest pain, focal neurological deficits, or any current shortness of breath. Exam is otherwise nondiagnostic with clear lung sounds, normal cardiac sounds, right leg is more swollen but has improved since previous admission. Plan to recheck labs and CT image the chest for concern of worsening PE. Patient placed on O2 pending results and had improvement of hypoxia. Labs compared to previous results are unremarkable for any acute change, CT imaging shows moderate clot burden but no acute change or worsening of symptoms. Given patient's hypoxia did call and speak with hospitalist about observation admission of patient and consideration of home O2. Dr. Toney consulted, prior to admission, with gynecology/oncology given patient's recent surgeries and complications. Initially plan was for patient to go home on oxygen, but after he spoke with specialist they requested patient be transferred to their facility for postoperative complications. Patient was in agreement with that plan of care. Patient pending bed availability and otherwise remained stable on O2. Accepting physician is . ECG Data Attestation: I personally reviewed and interpreted this ECG (s) as follows: Prior ECG tracings: available for review Interpretation: Sinus tachycardia, rate 111, no signs of ST elevated ND, otherwise nondiagnostic. Sinus tachycardia not noted on previous EKG HPI General Mode of arrival: ambulatory . Date/Time Provider Initiated Documentation: 09/03/18 11:11 . Limitations to Documentation: no limitations . Information obtained by: patient and RN notes reviewed . History of Present Illness 72 year old F presents to the emergency department with the chief complaint of Shortness of breath, described as severe and similar to prior episodes, Quality is described as other (denies pain), Patient started experiencing this hour(s) (1) and it has been now resolved. No relieving factors improve symptom(s), Patient notes no other symptoms.. Patient did receive the following treatments prior to arrival, none Related Data Home Medications Medication Instructions Recorded Confirmed multivitamin [Daily Vitamin] 1 ea PO DAILY 07/13/12 09/03/18 ascorbic acid (vitamin C) [Vitamin 500 mg PO DAILY tab 04/04/14 09/03/18 C] cholecalciferol (vitamin D3) 2,000 unit PO DAILY 04/04/14 09/03/18 melatonin-pyridoxine HCl (B6) 1 ea PO HS 04/04/14 09/03/18 vitamin B complex [B-Complex] 1 ea PO DAILY tab 04/04/14 09/03/18 triamcinolone acetonide 1 renetta TOPICAL BID PRN #1 tube 12/25/14 09/03/18 hydrocortisone 1 inch TOPICAL TID #1 tube 08/27/15 09/03/18 losartan 100 mg PO DAILY 90 Days #90 tab-cap 07/13/17 09/03/18 nystatin 100,000 unit/gram topical 1 applic TP TID PRN #60 gm 06/16/18 09/03/18 cream atorvastatin 40 mg PO DAILY 06/17/18 09/03/18 omega-3 fatty acids-fish oil [Fish 1 cap PO DAILY 06/17/18 09/03/18 Oil] amlodipine 10 mg tablet 10 mg PO DAILY #90 tab 06/21/18 09/03/18 levofloxacin 750 mg PO DAILY 08/28/18 09/03/18 metronidazole 500 mg PO TID 08/28/18 09/03/18 oxycodone 5 mg PO Q4H PRN PRN 08/28/18 09/03/18 apixaban [Eliquis] 5 mg PO BID #60 tab 08/30/18 09/03/18 apixaban [Eliquis] 10 mg PO BID #12 tab 08/30/18 09/03/18 pantoprazole [Protonix] 40 mg PO DAILY #30 tab 08/30/18 09/03/18 Previous Rx's Medication Instructions Recorded losartan 100 mg PO DAILY 90 Days #90 tab-cap 07/13/17 nystatin 100,000 unit/gram topical 1 applic TP TID PRN #60 gm 06/16/18 cream amlodipine 10 mg tablet 10 mg PO DAILY #90 tab 06/21/18 apixaban [Eliquis] 5 mg PO BID #60 tab 08/30/18 apixaban [Eliquis] 10 mg PO BID #12 tab 08/30/18 pantoprazole [Protonix] 40 mg PO DAILY #30 tab 08/30/18 Allergies Allergy/AdvReac Type Severity Reaction Status Date / Time lisinopril AdvReac ? dry cough Verified 08/28/18 19:46 General Stated Complaint: SOB RAMEZ: 3 Review of Systems Constitutional Denies chills, Denies fever(s), Denies headache(s), Denies malaise and Denies weakness Eyes Denies loss of vision ENT Denies headache(s) Cardiovascular Reports as per HPI, Denies chest pain, Denies chest pain with activity, Denies diaphoresis, Denies syncope, Denies rapid heart rate, Denies irregular heart rhythm, Reports lightheadedness, Reports dyspnea and Reports other (near syncope) Respiratory Reports as per HPI, Denies cough, Denies hemoptysis, Reports dyspnea, Denies stridor and Denies wheezing Gastrointestinal Denies abdominal pain, Denies nausea and Denies vomiting Musculoskeletal Denies tingling Neurologic Denies abnormal speech, Denies syncope, Denies headache(s), Denies lack of coordination, Denies focal weakness, Denies loss of vision, Denies sensory deficit, Denies tingling and Denies weakness Psychiatric Denies anxiety Allergic/Immunologic Denies wheezing [facility] Medical History Pelvic abscess (Acute) Right leg DVT (Suspected) Pulmonary embolism (Acute) Endometrial cancer determined by uterine biopsy (Acute ~06/2018) Adenoma of large intestine (Chronic 08/03/98) 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 Father Myocardial infarction Son Age: 50 No problems noted. Daughter Age: 54 Diabetes Social History Smoking/Tobacco Use Status: Never Alcohol Intake: never Drug use: Never Substance use type: does not use Do you feel safe at home: Yes Do you feel safe in your relationship?: Yes Exam Const General: cooperative, healthy appearing, comfortable, no acute distress, not diaphoretic and not ill appearing Nutritional Appearance: average body habitus Orientation: alert, awake and oriented x3 Limitations: mental status not altered Neck Neck: normal visual inspection, full ROM, trachea midline, supple and no anterior neck swelling Thyroid: thyroid normal Carotids: normal carotid upstroke and no bruits Chest Chest: normal inspection of the chest Resp Effort & Inspection: normal respiratory effort and able to speak in complete sentences Auscultation: clear to auscultation bilaterally Cardio Jugular venous pressure: no JVD Rate: tachycardic Rhythm: regular rhythm Heart Sounds: S1 normal, S2 normal, no click, no gallops, no murmurs and no rubs Bruits: no abdominal aortic bruits and no carotid bruits Pulses: radial pulses present bilaterally 1+ GI Inspection: normal to inspection and other (drain noted no erythema) Palpation: soft, no aortic enlargement, no pulsatile masses and nontender Auscultation: normal bowel sounds Skin General skin exam: no rashes or lesions noted Neuro General: alert, awake, oriented x3, tone normal and moves all extremities Course Vital Signs Temperature 36.9 C 09/03/18 11:21 Pulse 112 H 09/03/18 11:21 Respiratory Rate 22 09/03/18 11:21 Blood Pressure 169/69 H 09/03/18 11:21 Pulse Oximetry 97 09/03/18 11:21 Temperature 36.9 C 09/03/18 11:21 Temperature Source Temporal Artery Scan 09/03/18 11:21 Pulse 112 H 09/03/18 11:21 Respiratory Rate 22 09/03/18 11:21 Respiratory Effort Non-Labored 09/03/18 11:21 Blood Pressure 169/69 H 09/03/18 11:21 Blood Pressure Position Sitting 09/03/18 11:21 Pulse Oximetry 97 09/03/18 11:21 Oxygen Delivery Method Room Air 09/03/18 11:21 Oxygen Flow Rate 0 09/03/18 11:21 Pain Level 0 09/03/18 11:21
[2018-09-03 12:02] LABS: Abs Immature Grans 0.16 k/cumm (0.0-0.09); Absolute Basophil Count 0.04 k/cumm (0.0-0.2); Absolute Eosinophil Count 0.06 k/cumm (0.0-0.7); Absolute Lymphocyte Count 0.96 k/cumm (1.2-3.4); Absolute Neutrophil Count 11.88 k/cumm (1.2-6.7); Basophils % 0.3; Eosinophils % 0.4; HCT 39.9 % (36.0-46.0); HGB 12.7 g/dL (12.0-15.5); Immature Grans % 1.1; Lymphocytes % 6.9; Mean Corp. HGB Concentration 31.8 g/dL (32.0-36.0); Mean Corpuscular Hemoglobin 27.9 pg (27.0-33.0); Mean Corpuscular Volume 87.5 fL (80-95); Mean Platelet Volume 9.8 fL (8.0-11.0); Neutrophils % 85.3; Platelet Count 397 x1000/uL (130-400); RBC 4.56 m/cumm (4.00-5.20); RBC Distribution Width 15.2 % (11.7-14.6); White Blood Cell Count 13.93 k/cumm (4.4-10.8)
[2018-09-03 12:03] LABS: Absolute Monocyte Count 0.84 k/cumm (0.11-0.7)
[2018-09-03 12:33] LABS: ALT 38 U/L (12-78); AST 59 U/L (15-37); Albumin 2.7 g/dL (3.4-5.0); Alkaline Phosphatase 93 U/L (46-116); Anion Gap 10.1 mmol/L (3-11); BUN 13 mg/dL (7-18); Bilirubin, Total 0.7 mg/dL (0.2-1.0); CO2 25.9 mmol/L (21.0-32.0); CREATININE 0.59 mg/dL (0.55-1.02); Calcium 10.3 mg/dL (8.5-10.1); Chloride 101 mmol/L (98-107); Glucose 115 mg/dL (70-100); NT-proBNP 91 pg/mL; Potassium 3.7 mmol/L (3.5-5.1); Sodium 137 mmol/L (136-145)
[2018-09-03 12:35] LABS: Troponin I < 0.02 ng/mL (0.00-0.06)
--- NOTE | 2018-09-03 12:39 | DI.CT_ITS ---
SYMPTOMS/DIAGNOSIS: INCREASED SHORTNESS OF BREATH, ON TREATMENT FOR PE, H/O PE AND DVT CT SCAN OF THE CHEST: CT angiography was performed with multi slice acquisition and multi planar and 3D reconstruction. CT scan of the chest was performed according to the angiography protocol. Comparison CT scan is 08/28/18. There are again seen bilateral pulmonary emboli. There does not appear to be any progression of the pulmonary embolic disease compared to the prior examination. The heart size is within normal limits. No pericardial effusion is seen. No findings to suggest right heart strain are seen. No pleural effusions or pneumothoraces are identified. Dependent atelectatic changes are seen in the lungs. No focal consolidating infiltrates are present. The tracheobronchial tree is unremarkable. No pneumothorax or pleural effusion is present. The thoracic aorta is intact. No evidence of dissection or aneurysm. Degenerative changes are seen in the spine. IMPRESSION: 1. Findings again seen of bilateral pulmonary emboli. No evidence of progression of the embolic disease. 2. No evidence of obvious right heart strain. The findings were discussed with Magen Valerio of the Emergency Department on the date of the examination.
[2018-09-03 13:10] LABS: INR 1.2 (0.9-1.1); PTT Activated 27.4 sec (21.0-31.4); Prothrombin Time 11.7 sec (9.3-11.0)
[2018-09-03] MEDS: Omnipaque 350 MG/ML 100 ML BTL IJ (13:18)
[2018-09-03] MEDS: metroNIDAZOLE 500 MG TAB PO (17:12)
== END 2018-09-03 17:43 | disposition short-term general hospital (02) ==
PROVIDERS: Emergency Provider Nurse Practitioner Family; PCP Nurse Practitioner
DX: I26.99 Other pulmonary embolism without acute cor pulmonale (principal); I82.401 Acute embolism and thrombosis of unspecified deep veins of right lower extremity; R09.02 Hypoxemia
CPT/HCPCS: 36415; 71275; 80053; 93005; 99285; 83880; 84484; 85025; 85610; 85730; 93010; J3490

== ENCOUNTER 2019-10-13 00:21 | Outpatient (CLI) | payer MEDICARE, BC, SELFPAY ==
--- NOTE | 2019-10-13 10:19 | DI.MAMMO_ITS ---
EXAM: MAMMO SCREENING CLINICAL HISTORY: screening, Z12.39 TECHNIQUE: Mammograms were interpreted according to the usual protocol including computer analysis w [employer] CAD system, tomosynthesis and C-view imaging. COMPARISON: 2009 through 2018 FINDINGS: The breasts are composed of mainly fatty density , Breast Density category A. No suspicious masses or suspicious microcalcifications are seen. No skin thickening or abnormal axillary lymph nodes are seen. There has been no significant change from prior exams. Surgical clips are seen in both breasts relate d to previous breast biopsies. There is no significant scarring. IMPRESSION: BI-RADS Category 1, negative. Yearly screening mammography is recommended. Breast Density Category A, fatty density.
== END 2019-10-13 00:41 ==
PROVIDERS: PCP Nurse Practitioner; Visit Provider Nurse Practitioner
DX: Z12.31 Encounter for screening mammogram for malignant neoplasm of breast (principal)
CPT/HCPCS: 77063; 77067

== ENCOUNTER 2019-11-30 12:29 | Outpatient (REF) | payer MEDICARE, BC, SELFPAY ==
[2019-11-30 20:01] LABS: HCT 42.9 % (36.0-46.0); HGB 13.9 g/dL (11.2-15.7); MCH 28.3 pg (27.0-33.0); MCHC 32.4 % (32.0-36.0); MCV 87.2 fL (80-95); MPV 11.6 fL (8.0-11.0); Platelet Count 220 10^3/uL (130-400); RBC 4.92 10^6/uL (3.93-5.22); RDW 14.1 % (11.7-14.6); RDW-SD 45.4 fL; WBC 8.03 10^3/uL (4.4-10.8)
[2019-11-30 20:31] LABS: Hemoglobin A1C 6.2 % (3.8-5.6)
[2019-11-30 20:42] LABS: ALT 40 U/L (14-59); AST 29 U/L (15-37); Albumin 4.3 g/dL (3.4-5.0); Alkaline Phosphatase 103 U/L (46-116); Anion Gap 12.8 mmol/L (3-11); BUN 18 mg/dL (7-18); Bilirubin, Total 0.6 mg/dL (0.2-1.0); CO2 24.2 mmol/L (21.0-32.0); CREATININE 0.56 mg/dL (0.55-1.02); Calcium 10.3 mg/dL (8.5-10.1); Chloride 105 mmol/L (98-107); Glucose 104 mg/dL (74-106); Potassium 4.1 mmol/L (3.5-5.1); Sodium 142 mmol/L (136-145); Total Protein 7.9 g/dL (6.4-8.2)
[2019-11-30 21:29] LABS: Calculated LDL 110 mg/dL (<100); Cholesterol 196 mg/dL (<200); HDL Cholesterol 49 mg/dL (40-60); Triglyceride 186 mg/dL (<150)
== END 2019-11-30 12:49 ==
LOC: LBO 12:29
PROVIDERS: Nurse Practitioner Adult Health; PCP Nurse Practitioner; Referring Provider Internal Medicine; Visit Provider Internal Medicine
DX: E11.9 Type 2 diabetes mellitus without complications (principal); I10 Essential (primary) hypertension; E78.5 Hyperlipidemia, unspecified
CPT/HCPCS: 80053; 80061; 85027; 83036

== ENCOUNTER 2020-10-30 03:32 | Outpatient (CLI) | payer OTHER, SELFPAY ==
[2020-10-30 09:23] LABS: HCT 41.4 % (36.0-46.0); HGB 13.1 g/dL (11.2-15.7); MCH 28.7 pg (27.0-33.0); MCHC 31.6 % (32.0-36.0); MCV 90.6 fL (80-95); MPV 10.6 fL (8.0-11.0); Platelet Count 205 10^3/uL (130-400); RBC 4.57 10^6/uL (3.93-5.22); RDW 13.6 % (11.7-14.6); RDW-SD 45.2 fL; WBC 5.98 10^3/uL (4.4-10.8)
[2020-10-30 10:30] LABS: ALT 37 U/L (14-59); AST 25 U/L (15-37); Albumin 3.9 g/dL (3.4-5.0); Alkaline Phosphatase 84 U/L (46-116); Anion Gap 12.2 mmol/L (3-11); BUN 15 mg/dL (7-18); Bilirubin, Total 0.5 mg/dL (0.2-1.0); CO2 25.8 mmol/L (21.0-32.0); CREATININE 0.6 mg/dL (0.55-1.02); Calcium 9.5 mg/dL (8.5-10.1); Calculated LDL 156 mg/dL (<100); Chloride 107 mmol/L (98-107); Cholesterol 238 mg/dL (<200); Glucose 100 mg/dL (74-106); HDL Cholesterol 48 mg/dL (40-60); Potassium 4.4 mmol/L (3.5-5.1); Sodium 145 mmol/L (136-145); TSH (W/Ref FT4) 3.62 uIU/mL (0.36-3.74); Total Protein 7.1 g/dL (6.4-8.2); Triglyceride 170 mg/dL (<150); Vitamin B12 474 pg/mL (193-986)
== END 2020-10-30 03:33 | disposition home or self-care (01) ==
LOC: LBO 03:32
PROVIDERS: PCP Nurse Practitioner; Visit Provider Nurse Practitioner
DX: E78.5 Hyperlipidemia, unspecified (principal); R41.3 Other amnesia; Z85.42 Personal history of malignant neoplasm of other parts of uterus; D12.6 Benign neoplasm of colon, unspecified
CPT/HCPCS: 36415; 80053; 80061; 85027; 82607; 84443

== ENCOUNTER 2021-04-30 10:29 | Outpatient (REF) | payer OTHER, SELFPAY | END 2021-04-30 10:30 | disposition home or self-care (01) | LOC: LBN 10:29 | PROVIDERS: PCP Nurse Practitioner; Visit Provider Family Medicine | DX: N20.0 Calculus of kidney (principal) | CPT/HCPCS: 87086 ==

== ENCOUNTER → 2021-05-07 12:20 | Outpatient (BNVA) | payer OTHER, SELFPAY | PROVIDERS: PCP Nurse Practitioner; Referring Provider Nurse Practitioner; Visit Provider Nurse Practitioner Adult Health | DX: G30.1 Alzheimer's disease with late onset (principal); F02.81 Dementia in other diseases classified elsewhere, unspecified severity, with behavioral disturbance; I10 Essential (primary) hypertension | CPT/HCPCS: 99204; 99215 ==

== ENCOUNTER → 2021-05-09 01:22 | Outpatient (CLI) | payer OTHER, SELFPAY ==
--- NOTE | 2021-05-09 08:30 | DI.CT_ITS ---
Exam(s) CT HEAD WO EXAM: CT HEAD WO CLINICAL HISTORY: refuses MRI, claustrophobia,dementia, confusion,f03.90,r41.0. TECHNIQUE: Imaging Protocol: Axial computed tomography images with coronal and sagittal reformatted images were created and reviewed COMPARISON: No exams were available for comparison FINDINGS: There is mild generalized cerebral atrophy.. No evidence of acute intracranial hemorrhage, mass effect, or midline shift. The orbital structures are unremarkable. The temporal bone structures appear intact. Calvarium: Normal. Visualized Paranasal sinuses/Mastoids: Clear. IMPRESSION: No evidence of acute intracranial process. RADIATION DOSE DELIVERED: 712.96mGy.cm Total DLP 712.96mGy.cm Total DLP CTDIvol DATA REPOSITORY: All CT scans at this facility are submitted to the National Radiology Data Registry (NRDR) Dose Index Registry (DIR) with the [employer] (A[employer]). RADIATION OPTIMIZATION: All CT scans at this facility use at least one of these dose optimization te chniques: automated exposure control; mA and/or kV adjustment per patient size (includes targeted exa ms where dose is matched to clinical indication); or iterative reconstruction.
== END ==
PROVIDERS: PCP Nurse Practitioner; Visit Provider Nurse Practitioner
DX: G31.89 Other specified degenerative diseases of nervous system (principal); F03.90 Unspecified dementia, unspecified severity, without behavioral disturbance, psychotic disturbance, mood disturbance, and anxiety; R41.0 Disorientation, unspecified; R41.89 Other symptoms and signs involving cognitive functions and awareness
CPT/HCPCS: 70450

== ENCOUNTER → 2021-06-11 09:52 | Outpatient (BNVA) | payer OTHER, SELFPAY | PROVIDERS: PCP Nurse Practitioner; Referring Provider Nurse Practitioner; Visit Provider Nurse Practitioner Adult Health | DX: G30.1 Alzheimer's disease with late onset (principal); F02.81 Dementia in other diseases classified elsewhere, unspecified severity, with behavioral disturbance | CPT/HCPCS: 99213; 99214 ==

== ENCOUNTER → 2021-07-17 10:40 | Outpatient (BNVA) | payer OTHER, SELFPAY | PROVIDERS: PCP Nurse Practitioner; Referring Provider Nurse Practitioner; Visit Provider Nurse Practitioner Adult Health | DX: G30.1 Alzheimer's disease with late onset (principal); F02.81 Dementia in other diseases classified elsewhere, unspecified severity, with behavioral disturbance | CPT/HCPCS: 99213 ==

== ENCOUNTER → 2022-02-04 15:17 | Outpatient (BNVA) | payer OTHER, SELFPAY | PROVIDERS: PCP Nurse Practitioner; Visit Provider Nurse Practitioner Adult Health | DX: G30.9 Alzheimer's disease, unspecified (principal); F02.811 Dementia in other diseases classified elsewhere, unspecified severity, with agitation; R63.5 Abnormal weight gain | CPT/HCPCS: 99213; 99214 ==

== ENCOUNTER 2022-02-06 14:58 | Outpatient (REF) | payer OTHER, SELFPAY ==
[2022-02-06 18:27] LABS: HCT 41.6 % (36.0-46.0); HGB 12.9 g/dL (11.2-15.7); MCH 27.7 pg (27.0-33.0); MCV 90 fL (80-95); MPV 10.5 fL (8.0-11.0); Platelet Count 272 10^3/uL (130-400); RBC 4.65 10^6/uL (3.93-5.22); RDW 13.2 % (11.7-14.6); RDW-SD 43.2 fL; WBC 7.79 10^3/uL (4.4-10.8)
[2022-02-06 18:51] LABS: ALT 34 U/L (14-59); AST 22 U/L (15-37); Albumin 3.7 g/dL (3.4-5.0); Alkaline Phosphatase 119 U/L (46-116); Anion Gap 9.4 mmol/L (3-11); BUN 19 mg/dL (7-18); Bilirubin, Total 0.5 mg/dL (0.2-1.0); CO2 26.6 mmol/L (21.0-32.0); CREATININE 0.7 mg/dL (0.55-1.02); Calcium 9.9 mg/dL (8.5-10.1); Calculated LDL 95 mg/dL (<100); Chloride 107 mmol/L (98-107); Cholesterol 178 mg/dL (<200); Estimated GFR 88.47 (mL/min/1.73m2); Glucose 106 mg/dL (74-106); HDL Cholesterol 51 mg/dL (40-60); Potassium 4.2 mmol/L (3.5-5.1); Sodium 143 mmol/L (136-145); Total Protein 7.2 g/dL (6.4-8.2); Triglyceride 161 mg/dL (<150)
[2022-02-06 19:08] LABS: FREE T4 0.92 ng/dL (0.76-1.46)
== END 2022-02-06 14:59 | disposition home or self-care (01) ==
LOC: LBN 14:58
PROVIDERS: PCP Nurse Practitioner; Visit Provider Nurse Practitioner
DX: F02.818 Dementia in other diseases classified elsewhere, unspecified severity, with other behavioral disturbance; G30.9 Alzheimer's disease, unspecified; E78.5 Hyperlipidemia, unspecified
CPT/HCPCS: 80053; 80061; 85027; 84439; 84443

== ENCOUNTER → 2022-07-08 15:01 | Outpatient (BNVA) | payer OTHER, SELFPAY | PROVIDERS: PCP Nurse Practitioner; Referring Provider Nurse Practitioner; Visit Provider Nurse Practitioner Adult Health | DX: G30.9 Alzheimer's disease, unspecified (principal); F02.811 Dementia in other diseases classified elsewhere, unspecified severity, with agitation | CPT/HCPCS: 99213; 99214 ==

== ENCOUNTER → 2022-09-24 06:50 | Outpatient (BNVA) | payer OTHER, SELFPAY | PROVIDERS: PCP Nurse Practitioner; Referring Provider Nurse Practitioner; Visit Provider Nurse Practitioner Adult Health | DX: G30.9 Alzheimer's disease, unspecified (principal); F02.818 Dementia in other diseases classified elsewhere, unspecified severity, with other behavioral disturbance | CPT/HCPCS: 99213 ==

== ENCOUNTER → 2022-12-09 07:51 | Outpatient (BNVA) | payer OTHER, SELFPAY | PROVIDERS: PCP Nurse Practitioner; Referring Provider Nurse Practitioner; Visit Provider Nurse Practitioner Adult Health | DX: G30.9 Alzheimer's disease, unspecified (principal); F02.80 Dementia in other diseases classified elsewhere, unspecified severity, without behavioral disturbance, psychotic disturbance, mood disturbance, and anxiety | CPT/HCPCS: 99212; 99443 ==

== ENCOUNTER → 2023-01-20 08:04 | Outpatient (BNVA) | payer OTHER, SELFPAY | PROVIDERS: PCP Nurse Practitioner; Referring Provider Nurse Practitioner; Visit Provider Nurse Practitioner Adult Health | DX: G30.9 Alzheimer's disease, unspecified (principal); F02.818 Dementia in other diseases classified elsewhere, unspecified severity, with other behavioral disturbance; I10 Essential (primary) hypertension | CPT/HCPCS: 99214 ==

== ENCOUNTER → 2023-04-08 13:51 | Outpatient (BNVA) | payer OTHER, SELFPAY | PROVIDERS: PCP Nurse Practitioner; Referring Provider Nurse Practitioner; Visit Provider Podiatrist | DX: B35.1 Tinea unguium (principal); L60.8 Other nail disorders; M79.674 Pain in right toe(s); M79.675 Pain in left toe(s) | CPT/HCPCS: 99213 ==

== ENCOUNTER → 2023-06-10 07:48 | Outpatient (BNVA) | payer OTHER, SELFPAY | PROVIDERS: PCP Nurse Practitioner; Referring Provider Nurse Practitioner; Visit Provider Nurse Practitioner Adult Health | DX: F02.818 Dementia in other diseases classified elsewhere, unspecified severity, with other behavioral disturbance (principal); G30.9 Alzheimer's disease, unspecified | CPT/HCPCS: 99213 ==

== ENCOUNTER → 2023-06-17 13:39 | Outpatient (BNVA) | payer OTHER, SELFPAY | PROVIDERS: PCP Nurse Practitioner; Referring Provider Nurse Practitioner; Visit Provider Podiatrist | DX: M79.671 Pain in right foot (principal); M79.672 Pain in left foot; L60.3 Nail dystrophy; L60.2 Onychogryphosis; L60.8 Other nail disorders; B35.1 Tinea unguium | CPT/HCPCS: 11721 ==

== ENCOUNTER → 2023-07-21 07:54 | Outpatient (BNVA) | payer OTHER, SELFPAY | PROVIDERS: PCP Nurse Practitioner; Referring Provider Nurse Practitioner; Visit Provider Nurse Practitioner Adult Health | DX: Z71.89 Other specified counseling (principal) | CPT/HCPCS: 99212 ==

== ENCOUNTER → 2023-08-27 13:28 | Outpatient (BNVA) | payer OTHER, MEDICAID, SELFPAY | PROVIDERS: PCP Nurse Practitioner; Visit Provider Podiatrist | DX: M79.671 Pain in right foot (principal); M79.672 Pain in left foot; L60.3 Nail dystrophy; L60.2 Onychogryphosis; L60.8 Other nail disorders; B35.1 Tinea unguium | CPT/HCPCS: 11721 ==

== ENCOUNTER → 2023-12-24 13:16 | Outpatient (BNVA) | payer OTHER, MEDICAID, SELFPAY | PROVIDERS: PCP Nurse Practitioner; Referring Provider Nurse Practitioner; Visit Provider Podiatrist | DX: G30.9 Alzheimer's disease, unspecified (principal); L60.3 Nail dystrophy; R60.0 Localized edema; L65.9 Nonscarring hair loss, unspecified; L60.2 Onychogryphosis; R20.2 Paresthesia of skin; L60.8 Other nail disorders; B35.1 Tinea unguium; M79.671 Pain in right foot; M79.672 Pain in left foot | CPT/HCPCS: 11721 ==

== ENCOUNTER → 2024-01-19 06:44 | Outpatient (BNVA) | payer OTHER, MEDICAID, SELFPAY | PROVIDERS: PCP Nurse Practitioner; Visit Provider Nurse Practitioner Adult Health | DX: G30.9 Alzheimer's disease, unspecified (principal); F02.811 Dementia in other diseases classified elsewhere, unspecified severity, with agitation | CPT/HCPCS: 99214 ==

== ENCOUNTER 2024-03-23 12:20 | Outpatient (REF) | payer OTHER, MEDICAID, SELFPAY ==
[2024-03-23 14:51] LABS: HCT 44.4 % (36.0-46.0); HGB 13.5 g/dL (11.2-15.7); MCH 26.3 pg (27.0-33.0); MCHC 30.4 % (32.0-36.0); MCV 87 fL (80-95); MPV 11.5 fL (8.0-11.0); Platelet Count 266 10^3/uL (130-400); RBC 5.13 10^6/uL (3.93-5.22); RDW 15.8 % (11.7-14.6); RDW-SD 50.3 fL; WBC 7.92 10^3/uL (4.4-10.8)
[2024-03-23 15:02] LABS: Lab Add On Test DONE
[2024-03-23 15:19] LABS: ALT 36 U/L (14-59); AST 35 U/L (15-37); Albumin 3.7 g/dL (3.4-5.0); Alkaline Phosphatase 120 U/L (46-116); Anion Gap 11.6 mmol/L (3-11); BUN 20 mg/dL (7-18); Bilirubin, Total 0.48 mg/dL (0.2-1.0); CO2 24.4 mmol/L (21.0-32.0); CREATININE 0.9 mg/dL (0.55-1.02); Calcium 10.3 mg/dL (8.5-10.1); Calculated LDL 98 mg/dL (<100); Chloride 110 mmol/L (98-107); Cholesterol 188 mg/dL (<200); Estimated GFR 64.63 (mL/min/1.73m2); Glucose 125 mg/dL (74-106); HDL Cholesterol 54 mg/dL (40-60); Potassium 4.1 mmol/L (3.5-5.1); Sodium 146 mmol/L (136-145); Triglyceride 184 mg/dL (<150)
== END 2024-03-23 12:21 | disposition home or self-care (01) ==
LOC: LBN 12:20
PROVIDERS: PCP Nurse Practitioner; Visit Provider Nurse Practitioner
DX: E78.5 Hyperlipidemia, unspecified (principal); I10 Essential (primary) hypertension; R73.03 Prediabetes
CPT/HCPCS: 80053; 80061; 85027; 83036

== ENCOUNTER → 2024-05-04 10:30 | Outpatient (BNVA) | payer MEDICARE, SELFPAY | PROVIDERS: PCP Nurse Practitioner; Referring Provider Nurse Practitioner; Visit Provider Podiatrist | DX: L60.3 Nail dystrophy (principal); B35.1 Tinea unguium; M79.671 Pain in right foot; M79.672 Pain in left foot; L60.8 Other nail disorders; I73.89 Other specified peripheral vascular diseases; G30.9 Alzheimer's disease, unspecified; R09.89 Other specified symptoms and signs involving the circulatory and respiratory systems; R20.8 Other disturbances of skin sensation; L65.9 Nonscarring hair loss, unspecified; I83.93 Asymptomatic varicose veins of bilateral lower extremities; R60.0 Localized edema; R23.8 Other skin changes; L60.2 Onychogryphosis | CPT/HCPCS: 11721 ==

== ENCOUNTER → 2024-08-31 10:28 | Outpatient (BNVA) | payer MEDICARE, SELFPAY | PROVIDERS: PCP Nurse Practitioner Family; Referring Provider Nurse Practitioner; Visit Provider Podiatrist | DX: M79.671 Pain in right foot (principal); M79.672 Pain in left foot; L60.3 Nail dystrophy; L60.8 Other nail disorders; I73.89 Other specified peripheral vascular diseases; G30.9 Alzheimer's disease, unspecified; R09.89 Other specified symptoms and signs involving the circulatory and respiratory systems; R20.8 Other disturbances of skin sensation; L65.9 Nonscarring hair loss, unspecified; I83.93 Asymptomatic varicose veins of bilateral lower extremities; R60.0 Localized edema; R23.8 Other skin changes; L60.2 Onychogryphosis | CPT/HCPCS: 11721 ==

== ENCOUNTER 2024-10-07 13:06 | Inpatient (IN) | payer MEDICARE, SELFPAY ==
[2024-10-07] VITALS (29 sets, daily range): BP systolic 118–235; BP diastolic 37–77; PULSE 70–136; RESP 17–33; TEMP 36.8; O2SAT 92–99
--- NOTE | 2024-10-07 13:00 | DI.RAD_ITS ---
Exam(s) XR PORTABLE CHEST AP EXAM: XR PORTABLE CHEST AP CLINICAL HISTORY: resp distress. TECHNIQUE: 2D digital imaging was performed. COMPARISON: CT CT CHEST PE CTA from 09/03/2018 FINDINGS: Single AP portable view. Left hemidiaphragm is elevated by what appears to be a distended air-filled stomach. Heart size is upper normal. The mediastinum is not widened. There is infiltrate in both lung bases, more so on the left side just above the elevated hemidiaphragm. No large pleural effusions. IMPRESSION: Bilateral lung base infiltrates, more prominent on the left side. Elevated left hemidiaphragm. Air-filled distended stomach. DATA REPOSITORY: RADIATION DOSE DELIVERED:
[2024-10-07] MEDS: methylPREDNISolone SUCC 125 MG VIAL (13:10)
[2024-10-07] MEDS: EPINEPHrine for Inhalation 0.5 ML VIAL (13:15)
[2024-10-07 13:22] LABS: BE (Venous) -10 mmol/L (-2-3); HCO3 (Venous) 18 mmol/L (23-28); O2 Sat (Venous) 96 %; TCO2 (Venous) 16 mmol/L (24-29); pCO2 (Venous) 42 mmHg (41-51); pO2 (Venous) 92 mmHg
[2024-10-07 13:26] LABS: Abs Immature Grans 0.07 10^3/uL (0.0-0.06); HCT 44.4 % (36.0-46.0); HGB 13.9 g/dL (11.2-15.7); Immature Grans % 0.5 %; MCH 27.0 pg (27.0-33.0); MCHC 31.3 % (32.0-36.0); MCV 86 fL (80-95); MPV 10.7 fL (8.0-11.0); Platelet Count 285 10^3/uL (130-400); RBC 5.15 10^6/uL (3.93-5.22); RDW 14.6 % (11.7-14.6); RDW-SD 46.8 fL; WBC 13.21 10^3/uL (4.4-10.8)
[2024-10-07 13:36] LABS: INR 1.1 (0.9-1.1); Prothrombin Time 10.7 sec (9.1-11.1)
--- NOTE | 2024-10-07 13:38 | W.SURGCON ---
Date of service: 10/07/24 Time of Service: 13:38 Assessment and Plan Assessment and plan (1) Acute airway obstruction: Status: Acute Assessment and plan: 78-year-old woman is critically ill with an acute airway obstruction. Her hemodynamics are stable right now and her respiratory status seems to be improving although she will not be able to stay tachypneic for too long. Right now she is oxygenating adequately. We did a stat chest x-ray which shows significant atelectasis on the left lower side. Good airway biggs on her upper left side. Her right lung field is completely clear. A brief chart review does not reveal any significant upper airway or foregut problems historically. There is some cancer history. There is clear reports of DVT and PE but she is not on blood thinners from what I can tell. No recent EGD that I can see. I had a discussion with her daughter at the bedside. I recommend that we perform a stat bronchoscopy with possible EGD as well. Based off the x-ray pictures as well as the story my suspicion is that she has left lower airway foreign bodies. Not sure how effectively will be able to clean them out but we will certainly try. I was very clear and straightforward with the daughter that even if we can clean everything out she said she may develop a severe aspiration pneumonitis and even develop into pneumonia over the next few days. I was very clear about the possibilities of her having respiratory or cardiac arrest. The daughter asks that we maintain full code at this time. I was clear with the daughter that this patient will need to be admitted to the ICU after the procedure. She may or may not need to remain intubated. The hospitalist team has been informed. It is my clinical impression that the patient is stable enough to wait for anesthesia and intubate her in the operating room. If she decompensates, the emergency department physician has all of the airway equipment at the bedside. Overall plan: Intubation with anesthesia Stat bronchoscopy, possible EGD History of Present Illness Narrative: Stat page by ER for acute airway obstruction. Patient's history was given by the daughter at the bedside. She is an 78-year-old woman with some and dementia. She is however full code. She was eating hamburger roughly 20 minutes prior to presentation to the emergency department and started choking. EMS was rapidly called and responded and brought her to the ED. Heimlich maneuver failed. At the time of this consultation probably at least 30 minutes was passed. Her dyspnea has improved with the administration of oxygen and bronchodilators. She is saturating 98% with a respiratory rate in the low to mid?30s. Her other vital signs have slowly improved while she has been in the emergency department. [facility] All Active Problems (Updated 10/07/24 @ 13:42 by Stefan Silveira MD) Acute airway obstruction (Acute) Encounter for support to caregiver (Acute) Toe pain, left (Acute) Toe pain, right (Acute) Onychomycosis (Acute) Pincer nail deformity (Acute) Onychogryphosis (Acute) Enlarged and hypertrophic nails (Acute) Nail dystrophy (Acute) Pain in both feet (Acute) Paronychia of toe of left foot due to ingrown toenail (Acute) Advanced care planning/counseling discussion (Acute) Caregiver stress (Acute) Alzheimer's dementia with behavioral disturbance (Acute) Chronic pruritic rash in adult (Acute) History of endometrial cancer (Acute) [place]bo[place] (Acute[place] [facility] [place] [facility] Disorder of bone and articular cartilage (Acute 09/08/11) Disorder of function of stomach (Acute 09/08/11) Kidney stone (Acute 09/08/11) Hypokalemia (Acute) Diarrhea (Acute) Pelvic abscess (Acute) Pulmonary embolism (Acute) Endometrial cancer determined by uterine biopsy (Acute ~06/2018) D&C 06/23/18. 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 Planned surgery date 08/12/18 for laproscopic/robotic hysterectomy. 10/04/18 Radiation Therapy begins Sensorineural hearing loss, unspecified (Acute 09/08/11) Osteopenia determined by x-ray (Acute) DEXA Obesity (Chronic 07/23/12) BMI 30 would require wt decr to 145#; her goal 150 Hyperlipidemia (Chronic 04/06/98) LDL 207-178 prior to rx; risk 6% calc 10/2010, goal LDL 130; pravastatin begun 11/2007; chg atorvastatin 01/2013 Hypercalcemia (Acute 08/27/15) 10.5 08/2015. had been high nl; on thiazide; low vit D level 05/2016; ? 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 Haley Bermeo Adenoma of large intestine (Chronic 08/03/98) AT 43 CM; REPEAT 2007 NEG, BRIANNA REC 10 YR Medical History (Updated 10/07/24 @ 13:42 by Stefan Silveira MD) Heart murmur HTN (hypertension) Hyperlipemia Kidney stones Surgical History History of colonoscopy with polypectomy History of lumpectomy of both breasts History of lumpectomy Family History Mother , Angina at age 84. No problems noted. Father , CAD at age 81. Myocardial infarction Son Age: 56 No problems noted. Daughter Age: 60 Diabetes 15 Social History Smoking/Tobacco Use Status: Never Smoking risk assessment performed?: Yes Alcohol Intake: never Drug use: Never Substance use type: does not use Household members: other Number of Children: 2 number of grandchildren: 7 Communication Needs: Hard of Hearing and Corrective Lenses current occupation: retired Pets and animals: Yes (dog) Pets and animals: dog(s) What type of physical activity do you participate in: walking Duration: 30-45 minutes/day Frequency: daily Seatbelt use: always Helmet use: No Working smoke detector in home: Yes Fire extinguisher in home: Yes Carbon monox detector in home: Yes Do you feel safe at home: Yes Do you feel safe in your relationship?: Yes Additional Social history: Lives in daughter's house with daughter, LURDES, 2 grandsons (high functioning developmental delay), toddler great-grandson (who daughter is raising), pt's dog and daughters three dogs. October 2021. Worked as [employer] for 50 years (into her mid 70s) Exam Narrative Exam Narrative: Gen: Non-toxic, but clearly in extremis although clearly getting more calm with passing time. Neuro: Alert and oriented - able to listen and follow directions Psych: Anxious mood but seeming to improve with some time and oxygen Chest: Her breathing is not labored but is fast. Stridor is audible. Heart: Regular rhythm but tachycardic rate (110-115) Results Last Vital Signs Pulse 113 H 10/07/24 13:31 Resp 28 H 10/07/24 13:31 BP 173/57 H 10/07/24 13:31 Pulse Ox 94 10/07/24 13:31 Labs 10/07/24 13:15 Labs: Laboratory Results - last 24 hr 10/07/24 13:15 WBC 13.21 H RBC 5.15 Hgb 13.9 Hct 44.4 MCV 86 MCH 27.0 MCHC 31.3 L RDW 14.6 Plt Count 285 MPV 10.7 Immature Gran % 0.5 Neutrophils % 68.9 Lymphocytes % 22.3 Monocytes % 6.2 Eosinophils % 1.5 Basophils % 0.6 Nucleated RBC % 0.0 Absolute Neutrophils 9.10 H Absolute Lymphocytes 2.95 Absolute Monocytes 0.82 H Absolute Eosinophils 0.20 Absolute Basophils 0.08 PT 10.7 INR 1.1 VBG pH 7.23 L VBG pCO2 42 VBG pO2 92 VBG HCO3 18 L VBG Total CO2 16 L VBG O2 Saturation 96 VBG Base Excess -10 L
--- NOTE | 2024-10-07 13:39 | W.ED.GENAD ---
Discharge Plan Disposition Patient Disposition: Admit to [facility] Condition: Serious Discharge Details Clinical Impression: Acute hypoxic respiratory failure, Aspiration into airway Primary Care Provider: Joyce Mejia ED Provider: Jules Bowman Home Meds and New Rx's Prescriptions: No Action nystatin 100,000 unit/gram cream 1 applic TP TID PRN (Reason: groin rash) Qty: 60 6RF pantoprazole 40 mg tablet,delayed release (DR/EC) See Rx Instructions .ROUTE .COMPLEX Qty: 90 3RF Dose Instruction: TAKE ONE TABLET BY MOUTH EVERY DAY Rx Instructions: TAKE ONE TABLET BY MOUTH EVERY DAY atorvastatin 40 mg tablet See Rx Instructions .ROUTE .COMPLEX Qty: 90 3RF Dose Instruction: TAKE ONE TABLET BY MOUTH EVERY DAY Rx Instructions: TAKE ONE TABLET BY MOUTH EVERY DAY amlodipine 10 mg tablet See Rx Instructions .ROUTE .COMPLEX Qty: 90 3RF Dose Instruction: TAKE ONE TABLET BY MOUTH EVERY DAY Rx Instructions: TAKE ONE TABLET BY MOUTH EVERY DAY multivitamin Tablet 1 tab PO DAILY ascorbic acid (vitamin C) [Vitamin C] 500 MG tablet 500 mg PO DAILY vitamin B complex [B-Complex] 1 EACH tablet 1 ea PO DAILY cholecalciferol (vitamin D3) 1,000 UNIT tablet 2,000 unit PO DAILY betamethasone dipropionate 0.05 % cream 1 applic topical BID PRN (Reason: itchy thigh rash) Qty: 45 1RF Rx Instructions: Limit to 1 wk use, then hold before re-starting. fluoxetine 20 mg capsule See Rx Instructions .ROUTE .COMPLEX Qty: 90 3RF Dose Instruction: TAKE ONE CAPSULE BY MOUTH EVERY DAY Rx Instructions: TAKE ONE CAPSULE BY MOUTH EVERY DAY olanzapine 5 mg tablet See Rx Instructions .ROUTE .COMPLEX Qty: 60 3RF Dose Instruction: TAKE ONE TABLET BY MOUTH TWICE A DAY Rx Instructions: TAKE ONE TABLET BY MOUTH TWICE A DAY losartan 100 mg tablet See Rx Instructions .ROUTE .COMPLEX Qty: 90 3RF Dose Instruction: TAKE ONE TABLET BY MOUTH EVERY DAY TO LOWER BLOOD PRESSURE UNDER 140/90 OR DIRECTED Rx Instructions: TAKE ONE TABLET BY MOUTH EVERY DAY TO LOWER BLOOD PRESSURE UNDER 140/90 OR DIRECTED HPI General Date/Time Provider Initiated Documentation: 10/07/24 13:13. HPI Narrative: 78-year-old female with a past medical history of previous blood clot/thromboembolism, Alzheimer's dementia, previous kidney stone, who is a full code, presents today for acute respiratory distress/failure. Per family they were eating hamburger when the patient choked, she was unable to breathe and went unresponsive, 13 rounds of the Heimlich were performed and finally she had a small coughing episode and had some extremely stridorous breathing, but was still quite altered with severe respiratory distress. EMS arrived and she was started on 15 L nonrebreather, immediately brought to the ER in active respiratory distress. Patient is unable to add to the history. Family members had nothing additional to the EMS report. That being said the family members do consist for him that the patient is full code. Related Data Home Medications ?Medication ?Instructions ?Recorded ?Confirmed ascorbic acid (vitamin C) 500 mg 500 mg PO DAILY 04/04/14 08/31/24 tablet (Vitamin C) cholecalciferol (vitamin D3) 25 2,000 unit PO DAILY 04/04/14 08/31/24 mcg (1,000 unit) tablet vitamin B complex (B-Complex 1 ea PO DAILY 04/04/14 08/31/24 tablet) betamethasone dipropionate 0.05 % 1 applic topical BID PRN itchy 12/14/20 08/31/24 topical cream thigh rash #45 grams nystatin 100,000 unit/gram topical 1 applic topical TID PRN groin 04/25/21 08/31/24 cream rash #60 grams multivitamin 1 tab PO DAILY 06/11/21 08/31/24 fluoxetine 20 mg capsule See Rx Instructions .Route 03/14/24 08/31/24 .COMPLEX #90 caps amlodipine 10 mg tablet See Rx Instructions .Route 03/23/24 08/31/24 .COMPLEX #90 tabs atorvastatin 40 mg tablet See Rx Instructions .Route 03/23/24 08/31/24 .COMPLEX #90 tabs pantoprazole 40 mg tablet,delayed See Rx Instructions .Route 03/23/24 08/31/24 release .COMPLEX #90 tabs olanzapine 5 mg tablet See Rx Instructions .Route 04/11/24 08/31/24 .COMPLEX #60 tabs losartan 100 mg tablet See Rx Instructions .Route 04/21/24 08/31/24 .COMPLEX #90 tabs Previous Rx's ?Medication ?Instructions ?Recorded betamethasone dipropionate 0.05 % 1 applic topical BID PRN itchy 12/14/20 topical cream thigh rash #45 grams nystatin 100,000 unit/gram topical 1 applic topical TID PRN groin 04/25/21 cream rash #60 grams fluoxetine 20 mg capsule See Rx Instructions .Route 03/14/24 .COMPLEX #90 caps amlodipine 10 mg tablet See Rx Instructions .Route 03/23/24 .COMPLEX #90 tabs atorvastatin 40 mg tablet See Rx Instructions .Route 03/23/24 .COMPLEX #90 tabs pantoprazole 40 mg tablet,delayed See Rx Instructions .Route 03/23/24 release .COMPLEX #90 tabs olanzapine 5 mg tablet See Rx Instructions .Route 04/11/24 .COMPLEX #60 tabs losartan 100 mg tablet See Rx Instructions .Route 04/21/24 .COMPLEX #90 tabs Allergies Allergy/AdvReac Type Severity Reaction Status Date / Time lisinopril AdvReac ? dry cough Verified 10/07/24 13:38 General Stated Complaint: ForeignBody RAMEZ: 2 Exam Narrative Exam Narrative: 1.Const: Well-nourished, Well-developed, appearing stated age 2.Eyes: PERRL, no conjunctival injection, and symmetrical lids. 3.ENT: Atraumatic external nose and ears. Moist MM. Neck: Symmetric, trachea midline, No thyromegaly. Extreme supra manubrial retractions, active stridor. After removal of false upper teeth, I am unable to visualize any foreign body in the posterior oropharynx. 4.CVS: +S1/S2, Peripheral pulses 2+ and equal in all extremities. Brisk capillary refill in all extremities. 5.RESP: Tachypneic with active respiratory stridor and notable wheeze/stridor in the upper airways. Intercostal and supra manubrial retractions are present. 6.GI: Soft, Nontender/Nondistended, No hepatosplenomegaly. No guarding or rebound. 7.MSK: Normocephalic/Atraumatic, Extremities w/o deformity or ttp No cyanosis or clubbing, Normal movement of all extremities 8.Skin: Warm, Dry. No rashes or lesions. 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 Sensation grossly intact, no focal neurologic deficits. 10.Psych: (AAO) x0. Active distress Course Vital Signs Vital signs: Vital Signs Pulse 136 H 10/07/24 13:00 Respiratory Rate 32 H 10/07/24 13:00 Blood Pressure 235/77 H 10/07/24 13:00 Pulse Oximetry 99 10/07/24 13:00 Pulse 113 H 10/07/24 13:31 Pulse 112 H 10/07/24 13:31 Respiratory Rate 28 H 10/07/24 13:31 Respiratory Effort Accessory Muscle Use, Stridor, Incrsd Work of Breathing 10/07/24 13:35 Respiratory Pattern Normal 10/07/24 13:35 Blood Pressure 173/57 H 10/07/24 13:31 Blood Pressure Mean 90 10/07/24 13:31 Blood Pressure Position Sitting 10/07/24 13:00 Pulse Oximetry 94 10/07/24 13:31 Respiratory End-tidal CO2 30 10/07/24 13:31 Oxygen Delivery Method Non-Rebreather 10/07/24 13:00 Oxygen Flow Rate 15 10/07/24 13:00 Lab/Test Results Lab/Test Results: Laboratory Tests Range/Units 10/07/24 13:15 WBC (4.4-10.8) 10^3/uL 13.21 H RBC (3.93-5.22) 10^6/uL 5.15 Hgb (11.2-15.7) g/dL 13.9 Hct (36.0-46.0) % 44.4 MCV (80-95) fL 86 MCH (27.0-33.0) pg 27.0 MCHC (32.0-36.0) % 31.3 L RDW (11.7-14.6) % 14.6 Plt Count (130-400) 10^3/uL 285 MPV (8.0-11.0) fL 10.7 Immature Gran % % 0.5 Neutrophils % % 68.9 Lymphocytes % % 22.3 Monocytes % % 6.2 Eosinophils % % 1.5 Basophils % % 0.6 Nucleated RBC % (0.0-0.3) % 0.0 Absolute Neutrophils (1.2-6.7) 10^3/uL 9.10 H Absolute Lymphocytes (1.2-3.4) 10^3/uL 2.95 Absolute Monocytes (0.1-0.8) 10^3/uL 0.82 H Absolute Eosinophils (0.0-0.7) 10^3/uL 0.20 Absolute Basophils (0.0-0.2) 10^3/uL 0.08 PT (9.1-11.1) sec 10.7 INR (0.9-1.1) 1.1 VBG pH (7.31-7.41) 7.23 L VBG pCO2 (41-51) mmHg 42 VBG pO2 mmHg 92 VBG HCO3 (23-28) mmol/L 18 L VBG Total CO2 (24-29) mmol/L 16 L VBG O2 Saturation % 96 VBG Base Excess (-2-3) mmol/L -10 L Medical Decision Making 78-year-old female with a past medical history of previous blood clot/thromboembolism, Alzheimer's dementia, previous kidney stone, who is a full code, presents today for acute respiratory distress/failure. Per family they were eating hamburger when the patient choked, she was unable to breathe and went unresponsive, 13 rounds of the Heimlich were performed and finally she had a small coughing episode and had some extremely stridorous breathing, but was still quite altered with severe respiratory distress. EMS arrived and she was started on 15 L nonrebreather, immediately brought to the ER in active respiratory distress. Patient is unable to add to the history. Family members had nothing additional to the EMS report. That being said the family members do consist for him that the patient is full code. Exam demonstrates extreme respiratory stridor, respiratory distress with severe tachypnea. Patient is 96% on 15 L nonrebreather. No foreign body noted in posterior oropharynx. Significant intercostal and supra manubrial retractions are present. Concern for aspirated foreign body, likely in main or secondary air stems. Respiratory therapy and surgery and anesthesia were immediately called. The patient's neck was prepped, and anesthetized with lidocaine with epinephrine, airway equipment was placed at bedside, the patient was started on Solu-Medrol and racemic epinephrine for concern for potential airway inflammation secondary to the recent episode. As the patient was maintaining oxygen saturations at 96% on 15 L, I did feel we had time to mobilize the team rather than active RSI. Medications were drawn, plan was for emergent intubation, surgical airway if needed, and bedside bronc with glide scope if indicated. Dr. Silveira arrived shortly thereafter, at which point all tools were at the ready. Given the patient's Madhavi-stability status the decision was made to continue to mobilize the OR team with plan for OR intubation and bronc over the ER if the patient continued to maintain stability at this stage. However if the patient became hypoxemic or decompensated we would be an immediate pivot towards ED intubation, surgical airway, and bronc. Within 25 minutes of arrival after the racemic epinephrine had finished, the patient had another coughing episode, after which point she had a complete pivot and her symptomatology, with notable improvement of work of breathing, complete resolution of stridor, and became completely interactive with no signs of respiratory distress whatsoever. Patient began talking, communicating actively, and breathing normally. She did demonstrate evidence of some crackles in the left lower lung field, which I am concerned is related to aspiration pneumonitis. Chest x-ray that was performed during her period of active distress showed bilateral lung base infiltrates more prominent on the left-hand side which correlates with her aspiratory findings. Because of the patient's significantly compromised respiratory status earlier, and the concern for aspiration pneumonia and pneumonitis we have already administered Solu-Medrol and we will be giving Unasyn. I discussed this with hospitalist Dr. Portillo, he agrees with the plan and the patient will be admitted to the ICU, surgery is remaining on consult as Dr. Silveira. I have extensively reviewed the treatment plan with the patient. I have addressed all patient concerns at this time. I have also discussed the plan with the admitting physician and they agree with the current assessment and plan and have agreed to assume responsibility for the patient. All parties demonstrate verbal understanding and agreement with our assessment and plan at this time. The documentation in this chart was dictated using [employer] dictation software. Please excuse any dictation errors. FINDINGS: Single AP portable view. Left hemidiaphragm is elevated by what appears to be a distended air-filled stomach. Heart size is upper normal. The mediastinum is not widened. There is infiltrate in both lung bases, more so on the left side just above the elevated hemidiaphragm. No large pleural effusions. IMPRESSION: Bilateral lung base infiltrates, more prominent on the left side. Elevated left hemidiaphragm. Air-filled distended stomach. Critical Care Time Critical Care Time Critical Care Time: Yes Total Critical Care Time: 45 Attestation: Upon my evaluation, this patient had a high probability of imminent or life-threatening deterioration, which required my direct attention, intervention, and personal management. I have personally provided 45 minutes of critical care time exclusive of time spent on separately billable procedures. Time includes review of laboratory data, radiology results, discussion with consultants, and monitoring for potential decompensation. Interventions were performed as documented. [facility] All Active Problems (Updated 10/07/24 @ 14:13 by Jules Bowman DO) Aspiration into airway (Acute) Acute hypoxic respiratory failure (Acute) Acute airway obstruction (Acute) Encounter for support to caregiver (Acute) Toe pain, left (Acute) Toe pain, right (Acute) Onychomycosis (Acute) Pincer nail deformity (Acute) Onychogryphosis (Acute) Enlarged and hypertrophic nails (Acute) Nail dystrophy (Acute) Pain in both feet (Acute) Paronychia of toe of left foot due to ingrown toenail (Acute) Advanced care planning/counseling discussion (Acute) Caregiver stress (Acute) Alzheimer's dementia with behavioral disturbance (Acute) Chronic pruritic rash in adult (Acute) History of endometrial cancer (Acute) VTE (venous thromboembolism) (Acute) [place] [facility] [place] events in 08/2018 [facility] Disorder of bone and articular cartilage (Acute 09/08/11) Disorder of function of stomach (Acute 09/08/11) Kidney stone (Acute 09/08/11) Hypokalemia (Acute) Diarrhea (Acute) Pelvic abscess (Acute) Pulmonary embolism (Acute) Endometrial cancer determined by uterine biopsy (Acute ~06/2018) D&C 06/23/18. 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 Planned surgery date 08/12/18 for laproscopic/robotic hysterectomy. 10/04/18 Radiation Therapy begins Sensorineural hearing loss, unspecified (Acute 09/08/11) Osteopenia determined by x-ray (Acute) DEXA Obesity (Chronic 07/23/12) BMI 30 would require wt decr to 145#; her goal 150 Hyperlipidemia (Chronic 04/06/98) LDL 207-178 prior to rx; risk 6% calc 10/2010, goal LDL 130; pravastatin begun 11/2007; chg atorvastatin 01/2013 Hypercalcemia (Acute 08/27/15) 10.5 08/2015. had been high nl; on thiazide; low vit D level 05/2016; ? 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 Haley Bermeo Adenoma of large intestine (Chronic 08/03/98) AT 43 CM; REPEAT 2007 NEG, [facility] REC 10 YR Medical History (Updated 10/07/24 @ 14:13 by Jules Bowman DO) Heart murmur HTN (hypertension) Hyperlipemia Kidney stones Surgical History History of colonoscopy with polypectomy History of lumpectomy of both breasts History of lumpectomy Family History Mother , Angina at age 84. No problems noted. Father , CAD at age 81. Myocardial infarction Son Age: 56 No problems noted. Daughter Age: 60 Diabetes 15 Social History Smoking/Tobacco Use Status: Never Smoking risk assessment performed?: Yes Alcohol Intake: never Drug use: Never Substance use type: does not use Household members: other Number of Children: 2 number of grandchildren: 7 Communication Needs: Hard of Hearing and Corrective Lenses current occupation: retired Pets and animals: Yes (dog) Pets and animals: dog(s) What type of physical activity do you participate in: walking Duration: 30-45 minutes/day Frequency: daily Seatbelt use: always Helmet use: No Working smoke detector in home: Yes Fire extinguisher in home: Yes Carbon monox detector in home: Yes Do you feel safe at home: Yes Do you feel safe in your relationship?: Yes Additional Social history: Lives in daughter's house with daughter, LURDES, 2 grandsons (high functioning developmental delay), toddler great-grandson (who daughter is raising), pt's dog and daughters three dogs. October 2021. Worked as [email or web address] for 50 years (into her mid 70s)
[2024-10-07 13:50] LABS: ALT 29 U/L (14-59); AST 24 U/L (15-37); Albumin 3.8 g/dL (3.4-5.0); Alkaline Phosphatase 136 U/L (46-116); Anion Gap 18.9 mmol/L (3-11); BUN 19 mg/dL (7-18); Bilirubin, Total 0.5 mg/dL (0.2-1.0); CO2 19.1 mmol/L (21.0-32.0); Calcium 9.8 mg/dL (8.5-10.1); Chloride 102 mmol/L (98-107); Estimated GFR 64.63 (mL/min/1.73m2); Glucose 270 mg/dL (74-106); Potassium 3.6 mmol/L (3.5-5.1); Sodium 140 mmol/L (136-145); Total Protein 7.8 g/dL (6.4-8.2)
--- NOTE | 2024-10-07 13:51 | NUR.NOTE ---
Nursing Note: pt had few coughs was able to speak few words mouth closed while breathing at this time
--- NOTE | 2024-10-07 13:58 | ANES.PREOP_ITS ---
General Info Date of Service Date Performed: 10/07/24 Weight: 66 kg Meds Allergies and Home Medications Allergies Allergy/AdvReac Type Severity Reaction Status Date / Time lisinopril AdvReac ? dry cough Verified 10/07/24 13:38 Home Medication ?Medication ?Instructions ?Recorded ascorbic acid (vitamin C) 500 mg 500 mg PO DAILY 04/04 tablet (Vitamin C) cholecalciferol (vitamin D3) 25 2,000 unit PO DAILY mcg (1,000 unit) tablet vitamin B complex (B-Complex 1 ea PO DAILY 04/04/14 tablet) betamethasone dipropionate 0.05 % 1 applic topical BID PRN itchy 12/14/20 topical cream thigh rash #45 grams nystatin 100,000 unit/gram topical 1 applic topical TI D PRN groin 04/25/21 cream rash #60 grams multivitamin 1 tab PO DAILY 06/11/21 fluoxetine 20 mg capsule See Rx Instructions .Route 1 05/15/23 .COMPLEX #90 caps amlodipine 10 mg tablet See Rx Instructions .Route 1 05/24/23 .COMPLEX #90 tabs atorvastatin 40 mg tablet See Rx Instructions .Route 1 05/24/23 .COMPLEX #90 tabs pantoprazole 40 mg tablet,delayed See Rx Instructions .Route 03/23/24 release .COMPLEX #90 tabs olanzapine 5 mg tablet See Rx Instructions .Route 0 04/11/24 .COMPLEX #60 tabs losartan 100 mg tablet See Rx Instructions .Route 0 04/21/24 .COMPLEX #90 tabs Current Visit Medications: Current Medications Generic Name Dose Route Start Last Admin Trade Name Freq PRN Reason Stop Dose Admin IV Miscellaneous Supplies 2 each 10/07/24 13:15 Iv Access IV DIRECTED LEISA Sodium Chloride 0 ml 10/07/24 13:14 Normal Saline Flush 10 Ml Syr IVP PRN PRN Sodium Chloride 0 ml 10/07/24 20:00 Normal Saline Flush 10 Ml Syr IVP BID LEISA Sodium Chloride 0 ml 10/07/24 13:14 Normal Saline 10 Ml Vial IJ DIRECTED PRN PFSH Active Problems Active Problems: Problem Status Onset Code Acute airway obstruction Acute J98.8 Encounter for support to caregiver Acute Z71.89 Toe pain, left Acute M79.675 Toe pain, right Acute M79.674 Onychomycosis Acute B35.1 Pincer nail deformity Acute L60.8 Onychogryphosis Acute L60.2 Enlarged and hypertrophic nails Acute Q84.5 Nail dystrophy Acute L60.3 Pain in both feet Acute M79.671, M79.672 Paronychia of toe of left foot due to ingrown toenail Acute L03.032, L60.0 Advanced care planning/counseling discussion Acute Z71.89 Caregiver stress Acute Z63.6 Alzheimer's dementia with behavioral disturbance Acute G30.9, F02.81 Chronic pruritic rash in adult Acute L29.8 History of endometrial cancer Acute VTE (venous thromboembolism) Acute I82.90 Disorder of bone and articular cartilage Acute 09/08/11 M89.9, M94.9 Disorder of function of stomach Acute 09/08/11 K31.9 Kidney stone Acute 09/08/11 N20.0 Hypokalemia Acute E87.6 Diarrhea Acute R19.7 Pelvic abscess Acute Pulmonary embolism Acute I26.99 Endometrial cancer determined by uterine biopsy Acute ~06/2018 C54.1 Sensorineural hearing loss, unspecified Acute 09/08/11 H90.5 Osteopenia determined by x-ray Acute M85.80 Obesity Chronic 07/23/12 E66.9 Hyperlipidemia Chronic 04/06/98 E78.5 Hypercalcemia Acute 08/27/15 E83.52 Functional systolic murmur Acute 04/07/75 R01.0 Essential (primary) hypertension Chronic 10/07/07 I10 Elevated fasting blood sugar Chronic R73.01 Disorder of function of stomach Acute 09/08/11 K31.9 Disorder of bone and articular cartilage Acute 09/08/11 M89.9, M94.9 Congenital sensorineural hearing loss Chronic 09/08/11 H90.5 Undiagnosed cardiac murmurs Chronic 04/07/75 R01.1 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 Chronic 12/01/16 H47.012 Adenoma of large intestine Chronic 08/03/98 D12.6 Medical History Medical History (Updated 10/07/24 @ 13:42 by Stefan Silveira MD) Heart murmur HTN (hypertension) Hyperlipemia Kidney stones Surgical History Surgical History History of colonoscopy with polypectomy History of lumpectomy of both breasts History of lumpectomy Tobacco Smoking/Tobacco Use Status: Never Alcohol Alcohol Intake: never Substance Use Substance use: Never Substance use type: does not use Vital Signs and Lab Results Vital Signs Most Recent Vital Signs in EMR: Most Recent Vital Signs Pulse Resp BP Pulse Ox 107 H 17 132/45 L 97 10/07/24 13:48 10/07/24 13:48 10/07/24 13:48 10/07/24 13:48 Lab Results 10/07/24 13:15 10/07/24 13:15 Complete Blood Count: 2 WBC, (4.4-10.8) 13.21 10^3/uL H Today, 13:15 RBC, (3.93-5.22) 5.15 10^6/uL Today, 13:15 Hgb, (11.2-15.7) 13.9 g/dL Today, 13:15 Hct, (36.0-46.0) 44.4 % Today, 13:15 Plt Count, (130-400) 285 10^3/uL Today, 13:15 Complete Metabolic Panel: 2 Sodium, (136-145) 140 mmol/L Today, 13:15 Potassium, (3.5-5.1) 3.6 mmol/L Today, 13:15 Chloride, (98-107) 102 mmol/L Today, 13:15 Carbon Dioxide, (21.0-32.0) 19.1 mmol/L L Today, 13:15 BUN, (7-18) 19 mg/dL H Today, 13:15 Creatinine, (0.55-1.02) 0.9 mg/dL Today, 13:15 Est GFR (CKD-EPI 2020), (mL/min/1.73m2) 64.63 Today, 13:15 Calcium, (8.5-10.1) 9.8 mg/dL Today, 13:15 Albumin, (3.4-5.0) 3.8 g/dL Today, 13:15 Glucose, (74-106) 270 mg/dL H Today, 13:15 Liver Function Panel: 2 ALT, (14-59) 29 U/L Today, 13:15 AST, (15-37) 24 U/L Today, 13:15 Coagulation Panel: 2 INR, (0.9-1.1) 1.1 Today, 13:15 PT, (9.1-11.1) 10.7 sec Today, 13:15 Venous Blood Gas: 2 VBG pH, (7.31-7.41) 7.23 L Today, 13:15 VBG pO2 92 mmHg Today, 13:15 VBG pCO2, (41-51) 42 mmHg Today, 13:15 VBG O2 Saturation 96 % Today, 13:15 VBG HCO3, (23-28) 18 mmol/L L Today, 13:15 VBG Base Excess, (-2-3) -10 mmol/L L Today, 13:15 VBG Total CO2, (24-29) 16 mmol/L L Today, 13:15
--- NOTE | 2024-10-07 14:10 | W.PM.PROGNOT ---
Date of Service Date of service: 10/07/24 Time of Service: 14:10 Assessment and Plan Assessment and plan (1) Acute airway obstruction: Status: Acute Assessment and plan: Had a detailed discussion with the emergency room provider and anesthesia. All of us are unanimous that at this time she has drastically improved and has stabilized from a respiratory standpoint. She is hemodynamically stable and her heart rate has improved as well. She is able to have a conversation now. At this time stat bronchoscopy and intubation is contraindicated and we have all decided to abort the procedure. She still is at extremely high?risk for developing an aspiration pneumonitis which could further develop into a pneumonia. I reiterated this again to the patient's daughter. The hospitalist will still admit the patient to the ICU for respiratory monitoring and other medical support. Subjective Subjective Interval history since last seen: Patient witnessed with good coughing effort and was able to clear some of the foreign body/aspirated food. Following this, her breathing relaxed and her stridor disappeared and she was able to talk and have a normal respiratory effort and rate. Exam Narrative Exam Narrative: Drastically improved. Not in any extremis or discomfort or disability at this time. Resting comfortably. Breathing comfortably. Objective Last Vital Signs Pulse 106 H 10/07/24 14:01 Resp 17 10/07/24 14:01 BP 135/42 L 10/07/24 14:01 Pulse Ox 98 10/07/24 14:01 Laboratory Results - last 24 hr 10/07/24 10/07/24 13:15 13:29 WBC 13.21 H RBC 5.15 Hgb 13.9 Hct 44.4 MCV 86 MCH 27.0 MCHC 31.3 L RDW 14.6 Plt Count 285 MPV 10.7 Immature Gran % 0.5 Neutrophils % 68.9 Lymphocytes % 22.3 Monocytes % 6.2 Eosinophils % 1.5 Basophils % 0.6 Nucleated RBC % 0.0 Absolute Neutrophils 9.10 H Absolute Lymphocytes 2.95 Absolute Monocytes 0.82 H Absolute Eosinophils 0.20 Absolute Basophils 0.08 PT 10.7 INR 1.1 VBG pH 7.23 L VBG pCO2 42 VBG pO2 92 VBG HCO3 18 L VBG Total CO2 16 L VBG O2 Saturation 96 VBG Base Excess -10 L Sodium 140 Potassium 3.6 Chloride 102 Carbon Dioxide 19.1 L Anion Gap 18.9 H BUN 19 H Creatinine 0.9 Est GFR (CKD-EPI 2020) 64.63 Glucose 270 H Calcium 9.8 Total Bilirubin 0.5 AST 24 ALT 29 Alkaline Phosphatase 136 H Total Protein 7.8 Albumin 3.8 ABO/Rh Cancelled Antibody Screen Cancelled Time Spent with Patient Time Spent with Patient: <25 minutes Time was spent: preparing to see the patient(eg.review tests), obtaining and/or reviewing separately otained hiistory, referring, communicating with other health coronary care unit nurse, indepentently interpreting results, counseling the patient, care coordination and other
[2024-10-07] MEDS: AMPICILLIN/SULBACTAM 3 GM in Normal Saline 100 ML IVPB ×2 (14:25→19:14)
--- NOTE | 2024-10-07 14:31 | RESPIRATORY ---
10/07/2024 Approx 1305 Called to ED for airway obstruction. Upon arrival to ED patient on NRB and stridorous. Patient maintained SPO2 in the 90%s on NRB and ETCO2 monitoring and then was transferred to nasal cannula at 8L maintainin around 96% and has ETCO2 monitoring . Patient has increased WOB with stridor. Intubation supplies set up and ready at bedside. Patient given 2x racemic epi and then started on cool mist aerosol therapy while waiting for the anaesthesia/OR team to arrive. Approx 1350 stridor diminished and then stopped. A few minutes later patient coughed and swallowed and then produced voice. Patient sat up on her own and looks more comfortable. Patient remains on cool mist aerosol therapy and the decision to intubate was held. Approx 1410 cannula was turned off and patient remains on 40% FIO2 cool mist aerosol therapy with ETCO2 monitoring through cannula. Patient is producing voice and asking for her teeth. Patient HR 105, RR 22, ETCO2 32, SPO2 94%. Daughter at bedside. Patient will be admitted to the ICU.
[2024-10-07 14:56] LABS: Hemoglobin A1C 5.7 % (<5.7)
--- NOTE | 2024-10-07 15:00 | HPE_ITS ---
Date of service: 10/07/24 Time of Service: 15:00 Assessment and Plan Assessment and plan (1) Acute airway obstruction: Status: Acute Assessment and plan: Clinical upper airway obstruction from solid food. Resolved in the ED, no stridor since. Given IV solumedrol for swelling. Consider dexamethasone if symtpoms persist Will observe in ICU. (2) Acute hypoxic respiratory failure: Status: Acute Assessment and plan: Associate with aspiration event, initial upper airway obstruction On 8L via mask, titrate down as tolerated. Not on baseline O2. (3) Acidosis, metabolic: Status: Acute Assessment and plan: After unresponsive episode with elevated anion gap. Much improved after stabilized clinically Will give gentle IV fluids as not eating/drinking a lot now. (4) Aspiration pneumonia: Status: Acute Assessment and plan: Secondary to aspiration event, pneumonia vs pneumonitis Will continue amp/sulbactam at least 48hrs, stop if quick improvement. (5) Dementia: Status: Chronic Assessment and plan: supportive care, try to avoid stimulating agitation continue home olanzapine, SSRI (6) Essential (primary) hypertension: Assessment and plan: continue home medicaitons (7) DVT prophylaxis: Status: Acute Assessment and plan: high risk with h/o VTE, use enoxparin and ISAMAR/SCDs as tolerated. (8) Discharge planning issues: Status: Acute Assessment and plan: Home when stable off O2, possibly 24-48hrs confirmed DNR, but intubation okay History of Present Illness History of Present Illness Chief Complaint: choking Narrative: 78 yo F with history of dementia, HTN, DVT/PE complicating hysterectomy/abscess for endometrial cancer in 2019, who presented after choking on a bite of hamburger at a [employer] cookout around mid-day. She went unresponsive with the choking and was not breathing. The family administered the Hiemlich maneuver around 13 times and she finally coughed and started breathing but was in severe distress. When EMS arrived she was placed on NRB with 15LPM. In the ED she had persistent distress and stridor. She was being prepped for cricothyrotomy emergenty and treated with racemic epinephrine and she had additional cough and her stridor resolved and her distress significant improved. Since that point her mental status has improved to her normal and she has been able to talk. She denies current pain. She does not feel nausea or fever. Breathing feels comfortable at rest with O2. She asks for her dentures and glasses. Per family she had a similar choking episode over a year ago and improved with Hiemlich. This was also solid food. She typically eats a normal diet but famliy members watch her closely and prompt small bites and chewing/swallowing at times. Review of Systems All systems reviewed & are unremarkable except as noted in HPI and below Cardiovascular Cardiovascular: Reports leg edema (has some chronically) PFSH All Active Problems (Updated 10/07/24 @ 17:18 by Germain Black) Dementia (Chronic) Acidosis, metabolic (Acute) Discharge planning issues (Acute) DVT prophylaxis (Acute) Aspiration pneumonia (Acute) HTN (hypertension) (Chronic) Aspiration into airway (Acute) Acute hypoxic respiratory failure (Acute) Acute airway obstruction (Acute) Encounter for support to caregiver (Acute) Toe pain, left (Acute) Toe pain, right (Acute) Onychomycosis (Acute) Pincer nail deformity (Acute) Onychogryphosis (Acute) Enlarged and hypertrophic nails (Acute) Nail dystrophy (Acute) Pain in both feet (Acute) Paronychia of toe of left foot due to ingrown toenail (Acute) Advanced care planning/counseling discussion (Acute) Caregiver stress (Acute) Alzheimer's dementia with behavioral disturbance (Acute) Chronic pruritic rash in adult (Acute) History of endometrial cancer (Acute) Disorder of bone and articular cartilage (Acute 09/08/11) Kidney stone (Acute 09/08/11) Hypokalemia (Acute) Diarrhea (Acute) Pelvic abscess (Acute) Endometrial cancer determined by uterine biopsy (Acute ~06/2018) D&C 06/23/18. 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 Planned surgery date 08/12/18 for laproscopic/robotic hysterectomy. 10/04/18 Radiation Therapy begins Sensorineural hearing loss, unspecified (Acute 09/08/11) Osteopenia determined by x-ray (Acute) DEXA Obesity (Chronic 07/23/12) BMI 30 would require wt decr to 145#; her goal 150 Hyperlipidemia (Chronic 04/06/98) LDL 207-178 prior to rx; risk 6% calc 10/2010, goal LDL 130; pravastatin begun 11/2007; chg atorvastatin 01/2013 Hypercalcemia (Acute 08/27/15) 10.5 08/2015. had been high nl; on thiazide; low vit D level 05/2016; ? 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 Haley Bermeo Adenoma of large intestine (Chronic 08/03/98) AT 43 CM; REPEAT 2007 NEG, BRIANNA REC 10 YR Medical History Essential (primary) hypertension (10/07/07) goal <150/90 Functional systolic murmur (04/07/75) NL ANATOMY ON ECHO 11/30/1996 [facility] VTE (venous thromboembolism) [place] [facility] [place] and oncology events in 08/2018 [facility] Pulmonary embolism Heart murmur Hyperlipemia Kidney stones Surgical History History of colonoscopy with polypectomy History of lumpectomy of both breasts History of lumpectomy Family History Mother , Angina at age 84. No problems noted. Father , CAD at age 81. Myocardial infarction Son Age: 56 No problems noted. Daughter Age: 60 Diabetes 15 Social History Smoking/Tobacco Use Status: Never Smoking risk assessment performed?: Yes Alcohol Intake: never Drug use: Never Substance use type: does not use Household members: other Housing: house Number of Children: 2 number of grandchildren: 7 Communication Needs: Hard of Hearing and Corrective Lenses current occupation: retired Pets and animals: Yes (dog) Pets and animals: dog(s) What type of physical activity do you participate in: walking Duration: 30-45 minutes/day Frequency: daily Seatbelt use: always Helmet use: No Working smoke detector in home: Yes Fire extinguisher in home: Yes Carbon monox detector in home: Yes Do you feel safe at home: Yes Do you feel safe in your relationship?: Yes Additional Social history: Lives in daughter's house with daughter, LURDES, 2 grandsons (high functioning developmental delay), toddler great-grandson (who daughter is raising), pt's dog and daughters three dogs. October 2021. Worked as [employer] for 50 years (into her mid 70s) Meds Allergies and Home Medications Allergies Allergy/AdvReac Type Severity Reaction Status Date / Time lisinopril AdvReac ? dry cough Verified 10/07/24 13:38 Home Medications ?Medication ?Instructions ?Recorded ?Confirmed ?Type ascorbic acid (vitamin C) 500 mg 500 mg PO DAILY 04/0408/31/24 History tablet (Vitamin C) cholecalciferol (vitamin D3) 25 2,000 unit PO DAILY 08/31/24 History mcg (1,000 unit) tablet vitamin B complex (B-Complex 1 ea PO DAILY 04/04/14 History tablet) betamethasone dipropionate 0.05 % 1 applic topical BID PRN itchy 12/14/20 08/31/24 Rx topical cream thigh rash #45 grams nystatin 100,000 unit/gram topical 1 applic topical TI D PRN groin 04/25/21 08/31/24 Rx cream rash #60 grams multivitamin 1 tab PO DAILY 06/11/2108/05 History fluoxetine 20 mg capsule See Rx Instructions .Route 1 05/15/23 08/31/24 Rx .COMPLEX #90 caps amlodipine 10 mg tablet See Rx Instructions .Route 1 05/24/23 08/31/24 Rx .COMPLEX #90 tabs atorvastatin 40 mg tablet See Rx Instructions .Route 1 05/24/23 08/31/24 Rx .COMPLEX #90 tabs pantoprazole 40 mg tablet,delayed See Rx Instructions .Route 03/23/24 08/31/24 Rx release .COMPLEX #90 tabs olanzapine 5 mg tablet See Rx Instructions .Route 0 04/11/24 08/31/24 Rx .COMPLEX #60 tabs losartan 100 mg tablet See Rx Instructions .Route 0 04/21/24 08/31/24 Rx .COMPLEX #90 tabs Exam Narrative Exam Narrative: GEN: Alert and oriented to self and place, pleasant and cooperative, gives minimal history, daughter gives details. No acute distress at rest. HEENT: Head atraumatic. Conjunctiva clear, no icterus. PEERL, EOMI. no rhinorrhea. MMM, OP benign, symmetric appearing. Neck is supple with no masses or lymphadenopathy, trachea midline LUNGS: Wet rales bilaterally in bases, no wheeze, mild tachypnea with NC in place CV: RRR with 2/6 sytolic murmur, no gallops or rubs. ABD: active bowel sounds, soft, nontender and nondistended. No masses. EXT: no cyanosis, clubbing. Trace sue edema MSK: No joint redness or swelling NEURO: CN 2-12 grossly intact x poor hearing. Normal movement of 4 extremities. Normal speech and coordination. No tremor SKIN: No rashes or open wounds. PSYCH: normal mood and affect. no hallucinations evident. Memory impaired. Results Imaging Chest x-ray: report reviewed (Bilateral lung base infiltrates, more prominent on the left side. Elevated left hemidiaphragm. Air-filled distended stomach.) and image reviewed Labs 10/07/24 13:15 10/07/24 16:20 Labs: Laboratory Results - last 24 hr 10/07/24 10/07/24 10/07/24 13:15 13:29 13:48 WBC 13.21 H RBC 5.15 Hgb 13.9 Hct 44.4 MCV 86 MCH 27.0 MCHC 31.3 L RDW 14.6 Plt Count 285 MPV 10.7 Immature Gran % 0.5 Neutrophils % 68.9 Lymphocytes % 22.3 Monocytes % 6.2 Eosinophils % 1.5 Basophils % 0.6 Nucleated RBC % 0.0 Absolute Neutrophils 9.10 H Absolute Lymphocytes 2.95 Absolute Monocytes 0.82 H Absolute Eosinophils 0.20 Absolute Basophils 0.08 PT 10.7 INR 1.1 VBG pH 7.23 L VBG pCO2 42 VBG pO2 92 VBG HCO3 18 L VBG Total CO2 16 L VBG O2 Saturation 96 VBG Base Excess -10 L Sodium 140 Potassium 3.6 Chloride 102 Carbon Dioxide 19.1 L Anion Gap 18.9 H BUN 19 H Creatinine 0.9 Est GFR (CKD-EPI 2020) 64.63 Glucose 270 H Hemoglobin A1c 5.7 Calcium 9.8 Total Bilirubin 0.5 AST 24 ALT 29 Alkaline Phosphatase 136 H Total Protein 7.8 Albumin 3.8 ABO/Rh Cancelled O Negative Antibody Screen Cancelled NEGATIVE Last Vital Signs Pulse 106 H 10/07/24 14:01 Resp 17 10/07/24 14:01 BP 135/42 L 10/07/24 14:01 Pulse Ox 98 10/07/24 14:01 Time Spent Time spent with Patient: >75 minutes Time was spent: preparing to see the patient(eg.review tests), obtaining and/or reviewing separately otained hiistory, ordering medications,tests, procedures, referring, communicating with other health customer care representative, indepentently interpreting results, counseling the patient and care coordination
[2024-10-07 16:36] LABS: Anion Gap 12.2 mmol/L (3-11); BUN 19 mg/dL (7-18); CO2 24.8 mmol/L (21.0-32.0); Calcium 9.8 mg/dL (8.5-10.1); Chloride 105 mmol/L (98-107); Estimated GFR 87.37 (mL/min/1.73m2); Glucose 156 mg/dL (74-106); Potassium 3.5 mmol/L (3.5-5.1); Sodium 142 mmol/L (136-145)
[2024-10-07] MEDS: POTASSIUM CHLORIDE/D5-0.45NACL 1,000 ML 100 MEQ IV (17:47)
[2024-10-07] MEDS: OLANZapine 5 MG TAB 10 MG PO (19:13)
[2024-10-07] MEDS: Atorvastatin 40 MG TAB PO (19:13)
[2024-10-07] MEDS: Normal Saline Flush 10 ML SYR IVP (19:14)
[2024-10-08] VITALS (17 sets, daily range): BP systolic 138–169; BP diastolic 59–67; PULSE 71–91; RESP 14–22; TEMP 36.8–37.2; O2SAT 93–97
[2024-10-08] MEDS: AMPICILLIN/SULBACTAM 3 GM in Normal Saline 100 ML IVPB ×2 (01:40→08:17)
[2024-10-08] MEDS: POTASSIUM CHLORIDE/D5-0.45NACL 1,000 ML 100 MEQ IV (04:13)
[2024-10-08 06:49] LABS: HCT 42.0 % (36.0-46.0); HGB 13.4 g/dL (11.2-15.7); MCH 26.6 pg (27.0-33.0); MCHC 31.9 % (32.0-36.0); MCV 84 fL (80-95); MPV 11.3 fL (8.0-11.0); Platelet Count 215 10^3/uL (130-400); RBC 5.03 10^6/uL (3.93-5.22); RDW 14.7 % (11.7-14.6); RDW-SD 44.6 fL; WBC 14.17 10^3/uL (4.4-10.8)
[2024-10-08] MEDS: Pantoprazole 40 MG TABCR PO (07:43)
[2024-10-08] MEDS: Vitamins B Comp w/C TAB 1 TAB PO (08:34)
[2024-10-08] MEDS: FLUoxetine 20 MG CAP PO (08:34)
[2024-10-08] MEDS: Losartan 50 MG TAB 100 MG PO (08:34)
[2024-10-08] MEDS: Cholecalciferol (Vitamin D3) 1,000 UNIT TAB 2000 UNITS PO (08:34)
[2024-10-08] MEDS: Ascorbic Acid 500 MG TAB PO (08:34)
[2024-10-08] MEDS: amLODIPine 10 MG TAB PO (08:35)
[2024-10-08] MEDS: Enoxaparin 40 MG/0.4 ML SYR SC (08:35)
[2024-10-08] MEDS: Normal Saline Flush 10 ML SYR IVP (08:35)
[2024-10-08] MEDS: Multivitamin TAB 1 TAB PO (08:35)
--- NOTE | 2024-10-08 08:40 | PDOC.CMIN ---
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) Instrumental Activities of Daily Living (ADLs): Requires support Medications Medication Management: No Issues/Barriers identified Advance Directives Advance Directives: Do you have an Advance Directive: Y 09/23/22, 12:39 AD On File at [facility]: Y 09/23/22, 12:39 Date Asked 08/28/18 09/23/22, 12:39 AD Date Reviewed 10/07/24 10/07/24, 13:22 COLST On File at [facility] COLST Date Scanned Code Status Resuscitation Status DNR Insurance Coverage/Financial Issues Insurance: BC/ Medicare Advantage Care Team Visit Care Team Role Provider Type Joyce Mejia APRN Primary Care Provider NURSE PRACTITIONER Brianna El, DANCE MASTER Other Providers SPEECH LANGUAGE PATHOLOGIST Sparkle Hancock, DANCE MASTER Other Providers SPEECH LANGUAGE PATHOLOGIST Velia Locke Other Providers SPEECH LANGUAGE PATHOLOGIST Michelle Meier, DANCE MASTER Other Providers SPEECH LANGUAGE PATHOLOGIST Brie Gillis, DANCE MASTER Other Providers SPEECH LANGUAGE PATHOLOGIST Jules Bowman, Emergency Provider [facility] STAFF PHYSICIAN Germain Black Admit Provider [facility] STAFF PHYSICIAN Attending Provider Discharge Potential Discharge Needs: PCP F/U Appt Anticipated Barriers to Discharge: None Identified Patient/Family Education Needs: Review discharge instructions, discuss Ask Me Three Transportation: Private vehicle Plan: Anticipate Candy will be discharged home with no new services when medically cleared. She will follow up with her community providers and plan of care and transport with family. CM will follow and continue to assess for discharge needs. Social Determinants of Health Screening Social Determinants of health last assessed in clinic: 10/07/24 Will the Patient Participate in the Screening?: Unable to obtain Do you worry about having a steady place to live?: no Problems where you live: no known problems In the past 12 months, have you had to go without electric, gas, oil or water in your home?: no Has lack of transportation kept you from medical appointments or from doing things needed for daily living?: no Has anyone in your life made you feel unsafe or unsupported?: no How hard is it for you to pay for the very basics like food, housing, medical care, and heating? Would you say it is:: Not hard at all Do you want help finding or keeping work or a job?: I do not need or want help If for any reason you need help with day-to-day activities such as bathing, preparing meals, shopping, managing finances, etc., do you get the help you need?: I get all the help I need How often do you feel lonely or isolated from those around you?: Rarely Do you speak a language other than Romanian at home?: No Does the patient want assistance with any of the above?: No Health Related Social Needs Health related social needs: feeling lonely/isolated (Z60.8) Health related social needs details: patient lives at home with her daughter, her daughter said that they have four generations living in the home. PFSH All Active Problems (Updated 10/07/24 @ 17:18 by Germain Black) Dementia (Chronic) Acidosis, metabolic (Acute) Discharge planning issues (Acute) DVT prophylaxis (Acute) Aspiration pneumonia (Acute) Aspiration into airway (Acute) Acute hypoxic respiratory failure (Acute) HTN (hypertension) (Chronic) Acute airway obstruction (Acute) Encounter for support to caregiver (Acute) Toe pain, left (Acute) Toe pain, right (Acute) Onychomycosis (Acute) Pincer nail deformity (Acute) Onychogryphosis (Acute) Enlarged and hypertrophic nails (Acute) Nail dystrophy (Acute) Pain in both feet (Acute) Paronychia of toe of left foot due to ingrown toenail (Acute) Advanced care planning/counseling discussion (Acute) Caregiver stress (Acute) Alzheimer's dementia with behavioral disturbance (Acute) Chronic pruritic rash in adult (Acute) History of endometrial cancer (Acute) Disorder of bone and articular cartilage (Acute 09/08/11) Kidney stone (Acute 09/08/11) Hypokalemia (Acute) Diarrhea (Acute) Pelvic abscess (Acute) Endometrial cancer determined by uterine biopsy (Acute ~06/2018) D&C 06/23/18. 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 Planned surgery date 08/12/18 for laproscopic/robotic hysterectomy. 10/04/18 Radiation Therapy begins Sensorineural hearing loss, unspecified (Acute 09/08/11) Osteopenia determined by x-ray (Acute) DEXA Obesity (Chronic 07/23/12) BMI 30 would require wt decr to 145#; her goal 150 Hyperlipidemia (Chronic 04/06/98) LDL 207-178 prior to rx; risk 6% calc 10/2010, goal LDL 130; pravastatin begun 11/2007; chg atorvastatin 01/2013 Hypercalcemia (Acute 08/27/15) 10.5 08/2015. had been high nl; on thiazide; low vit D level 05/2016; ? 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 No problems noted. Father , CAD at age 81. Myocardial infarction Son Age: 56 No problems noted. Daughter Age: 60 Diabetes 15 Social History Smoking/Tobacco Use Status: Never Smoking risk assessment performed?: Yes Alcohol Intake: never Drug use: Never Substance use type: does not use Household members: other Housing: house Number of Children: 2 number of grandchildren: 7 Communication Needs: Hard of Hearing and Corrective Lenses current occupation: retired Pets and animals: Yes (dog) Pets and animals: dog(s) What type of physical activity do you participate in: walking Duration: 30-45 minutes/day Frequency: daily Seatbelt use: always Helmet use: No Working smoke detector in home: Yes Fire extinguisher in home: Yes Carbon monox detector in home: Yes Do you feel safe at home: Yes Do you feel safe in your relationship?: Yes Additional Social history: Lives in daughter's house with daughter, LURDES, 2 grandsons (high functioning developmental delay), toddler great-grandson (who daughter is raising), pt's dog and daughters three dogs. October 2021. 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
--- NOTE | 2024-10-08 12:22 | DSE_ITS ---
Date of service: 10/08/24 Time of Service: 12:22 DS: Diagnosis Discharge Diagnosis (1) Acute airway obstruction: Status: Acute (2) Acute hypoxic respiratory failure: Status: Acute (3) Acidosis, metabolic: Status: Acute (4) Aspiration pneumonia: Status: Acute (5) Dementia: Status: Chronic (6) Essential (primary) hypertension: (7) DVT prophylaxis: Status: Acute (8) Discharge planning issues: Status: Acute Discharge Plan Disposition Patient Disposition: Home Condition: Stable Discharge Details Reason For Visit: aspiration pneumonia, upper airway obstruction Admit Date/Time: 10/07/24 14:25 Admit Provider: Germain Black Attending Provider: Germain Black Primary Care Provider: Joyce Mejia Hospital Course Hospital Course: 78 yo F with history of dementia, HTN, DVT/PE complicating hysterectomy/abscess for endometrial cancer in 2019, who presented after choking on a bite of hamburger at a family cookout around mid-day. She went unresponsive with the choking and was not breathing. The family administered the Hiemlich maneuver around 13 times and she finally coughed and started breathing but was in severe distress. When EMS arrived she was placed on NRB with 15LPM. In the ED she had persistent distress and stridor. She was being prepped for cricothyrotomy emergently and treated with racemic epinephrine neb and she had additional cough and her stridor resolved and her distress significant improved. Since that point her mental status improved to her normal and she was able to talk but remained hypoxic. Acidosis was initially noted on ABG and BMP with high AG, but this normalized after she stabilized later in the day. CXR and exam showed bibasilar infiltrates and she was treated with ampicillin/sulbactam. By the next morning she was no longer needing oxygen, with O2 sat 95% on RA. She was discharged to complete a 5 day course of ant ibiotics with amoxicillin clavulonate. CABLE MECHANIC evaluation was ordered, but she was tolerating minced/moist diet here. CABLE MECHANIC evaluation was recommended as outpatient as this is the second time she had severe aspiration of solid food. Follow up PCP 1 week Recommendations for Follow Up Recommended tests to be ordered by follow up provider: speech pathology referral Home Meds and New Rx's Prescriptions: New amoxicillin-pot clavulanate 875-125 mg tablet 1 tab PO BID Qty: 7 0RF Continued nystatin 100,000 unit/gram cream 1 applic TP TID PRN (Reason: groin rash) Qty: 60 6RF pantoprazole 40 mg tablet,delayed release (DR/EC) See Rx Instructions .ROUTE .COMPLEX Qty: 90 3RF Dose Instruction: TAKE ONE TABLET BY MOUTH EVERY DAY Rx Instructions: TAKE ONE TABLET BY MOUTH EVERY DAY atorvastatin 40 mg tablet See Rx Instructions .ROUTE .COMPLEX Qty: 90 3RF Dose Instruction: TAKE ONE TABLET BY MOUTH EVERY DAY Rx Instructions: TAKE ONE TABLET BY MOUTH EVERY DAY amlodipine 10 mg tablet See Rx Instructions .ROUTE .COMPLEX Qty: 90 3RF Dose Instruction: TAKE ONE TABLET BY MOUTH EVERY DAY Rx Instructions: TAKE ONE TABLET BY MOUTH EVERY DAY multivitamin Tablet 1 tab PO DAILY ascorbic acid (vitamin C) [Vitamin C] 500 MG tablet 500 mg PO DAILY vitamin B complex [B-Complex] 1 EACH tablet 1 ea PO DAILY cholecalciferol (vitamin D3) 1,000 UNIT tablet 2,000 unit PO DAILY betamethasone dipropionate 0.05 % cream 1 applic topical BID PRN (Reason: itchy thigh rash) Qty: 45 1RF Rx Instructions: Limit to 1 wk use, then hold before re-starting. fluoxetine 20 mg capsule See Rx Instructions .ROUTE .COMPLEX Qty: 90 3RF Dose Instruction: TAKE ONE CAPSULE BY MOUTH EVERY DAY Rx Instructions: TAKE ONE CAPSULE BY MOUTH EVERY DAY olanzapine 5 mg tablet See Rx Instructions .ROUTE .COMPLEX Qty: 60 3RF Dose Instruction: TAKE ONE TABLET BY MOUTH TWICE A DAY Rx Instructions: TAKE ONE TABLET BY MOUTH TWICE A DAY losartan 100 mg tablet See Rx Instructions .ROUTE .COMPLEX Qty: 90 3RF Dose Instruction: TAKE ONE TABLET BY MOUTH EVERY DAY TO LOWER BLOOD PRESSURE UNDER 140/90 OR DIRECTED Rx Instructions: TAKE ONE TABLET BY MOUTH EVERY DAY TO LOWER BLOOD PRESSURE UNDER 140/90 OR DIRECTED Discharge Instructions Instructions: Aspiration Pneumonia (DC) Additional Instructions: take a few more days of antibiotics as prescribed eat a soft and moist diet to avoid aspiration You should follow up with speech pathology for a formal evaluation of the swallow to avoid another aspiration event Referrals: Velia Locke [SPEECH LANGUAGE PATHOLOGIST, Speech Therapy] Activity:: Activity as Tolerated Equipment/Supplies:: No Equipment Needed Diet:: minced and moist Discharge Orders Discharge Orders: Discharge Order (Routine); Ordered 10/08/24 Ordered By: Germain Black DS: Summary Time Spent with Patient providing and/or coordinating discharge services: Greater than 30 minutes Status at Discharge Functional status at discharge: uses cane/walker Overall status at discharge: patient is back to baseline Mental Status: mental status grossly normal (with memory impairment) Speech and Movement: speech and movement normal Mood: congruent mood Affect: normal affect Quality:SDOH Health Related Social Needs: Health related social needs lonely/isolated Health related social needs details patient lives at [facility] with her daughter, her daughter said that they have four generations living in the home. Health related social needs details: patient lives at home with her daughter, her daughter said that they have four generations living in the home. Exam Narrative Exam Narrative: GEN: Alert and oriented to self and place. No acute distress at rest. HEENT: MMM, OP benign, symmetric appearing. Neck is supple trachea midline LUNGS: Slight basilar rales, otherwise clear, nl effort CV: RRR with 2/6 sytolic murmur, no gallops or rubs. EXT: no cyanosis, clubbing. Trace sue edema Psych Mental Status: mental status grossly normal (with memory impairment) Speech and Movement: speech and movement normal Mood: congruent mood Affect: normal affect DS: Data Vitals/I&O Vitals and I&O: Vital Signs Temperature 36.9 C 10/08/24 11:48 Temperature Source Tympanic 10/08/24 11:48 Pulse 80 10/08/24 11:48 Pulse 75 10/08/24 10:08 Respiratory Rate 21 10/08/24 10:08 Respiratory Effort Non-Labored 10/07/24 15:30 Respiratory Depth Shallow 10/07/24 15:30 Respiratory Pattern Tachypnea 10/07/24 15:30 Blood Pressure 153/61 H 10/08/24 11:48 Blood Pressure Mean 91 10/08/24 11:48 Blood Pressure Position Sitting 10/07/24 13:00 Pulse Oximetry 96 10/08/24 10:08 Respiratory End-tidal CO2 10/08/24 00:01 Oxygen Delivery Method Room Air 10/08/24 11:48 Oxygen Flow Rate 0 10/08/24 11:48 Fraction of Inspired Oxygen (FIO2) 28 10/07/24 20:01 Intake & Output 10/07/24 10/08/24 10/08/24 23:59 11:59 23:59 Intake Total 250 / 250 2090 / 2090 Output Total 1699 / 0 Balance 250 / 250 390 / 390 Weight 63.7 kg Intake: IV 200 / 200 1615 / 1615 Oral 50 / 50 475 / 475 Output: Urine 1699 / 1699 Other: Urine Color Light Kaycee Urine Appearance Clear Urine Odor Foul Comment From 929 to 11:45 Stool Size Smear Stool Characteristics Soft Brown Data Completed and Pending Labs on day of discharge: Labs from last 24 hours 10/08/24 10/07/24 10/07/24 05:40 16:20 13:48 WBC 14.17 H RBC 5.03 Hgb 13.4 Hct 42.0 MCV 84 MCH 26.6 L MCHC 31.9 L RDW 14.7 H Plt Count 215 MPV 11.3 H Immature Gran % Neutrophils % Lymphocytes % Monocytes % Eosinophils % Basophils % Nucleated RBC % Absolute Neutrophils Absolute Lymphocytes Absolute Monocytes Absolute Eosinophils Absolute Basophils PT INR VBG pH VBG pCO2 VBG pO2 VBG HCO3 VBG Total CO2 VBG O2 Saturation VBG Base Excess Sodium 142 Potassium 3.5 Chloride 105 Carbon Dioxide 24.8 Anion Gap 12.2 H BUN 19 H Creatinine 0.7 Est GFR (CKD-EPI 2020) 87.37 Glucose 156 H Hemoglobin A1c Calcium 9.8 Total Bilirubin AST ALT Alkaline Phosphatase Total Protein Albumin ABO/Rh O Negative Antibody Screen NEGATIVE 10/07/24 10/07/24 13:29 13:15 WBC 13.21 H RBC 5.15 Hgb 13.9 Hct 44.4 MCV 86 MCH 27.0 MCHC 31.3 L RDW 14.6 Plt Count 285 MPV 10.7 Immature Gran % 0.5 Neutrophils % 68.9 Lymphocytes % 22.3 Monocytes % 6.2 Eosinophils % 1.5 Basophils % 0.6 Nucleated RBC % 0.0 Absolute Neutrophils 9.10 H Absolute Lymphocytes 2.95 Absolute Monocytes 0.82 H Absolute Eosinophils 0.20 Absolute Basophils 0.08 PT 10.7 INR 1.1 VBG pH 7.23 L VBG pCO2 42 VBG pO2 92 VBG HCO3 18 L VBG Total CO2 16 L VBG O2 Saturation 96 VBG Base Excess -10 L Sodium 140 Potassium 3.6 Chloride 102 Carbon Dioxide 19.1 L Anion Gap 18.9 H BUN 19 H Creatinine 0.9 Est GFR (CKD-EPI 2020) 64.63 Glucose 270 H Hemoglobin A1c 5.7 Calcium 9.8 Total Bilirubin 0.5 AST 24 ALT 29 Alkaline Phosphatase 136 H Total Protein 7.8 Albumin 3.8 ABO/Rh Cancelled Antibody Screen Cancelled PFSH All Active Problems (Updated 10/07/24 @ 17:18 by Germain Black) Dementia (Chronic) Acidosis, metabolic (Acute) Discharge planning issues (Acute) DVT prophylaxis (Acute) Aspiration pneumonia (Acute) HTN (hypertension) (Chronic) Aspiration into airway (Acute) Acute hypoxic respiratory failure (Acute) Acute airway obstruction (Acute) Encounter for support to caregiver (Acute) Toe pain, left (Acute) Toe pain, right (Acute) Onychomycosis (Acute) Pincer nail deformity (Acute) Onychogryphosis (Acute) Enlarged and hypertrophic nails (Acute) Nail dystrophy (Acute) Pain in both feet (Acute) Paronychia of toe of left foot due to ingrown toenail (Acute) Advanced care planning/counseling discussion (Acute) Caregiver stress (Acute) Alzheimer's dementia with behavioral disturbance (Acute) Chronic pruritic rash in adult (Acute) History of endometrial cancer (Acute) Disorder of bone and articular cartilage (Acute 09/08/11) Kidney stone (Acute 09/08/11) Hypokalemia (Acute) Diarrhea (Acute) Pelvic abscess (Acute) Endometrial cancer determined by uterine biopsy (Acute ~06/2018) D&C 06/23/18. 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 Planned surgery date 08/12/18 for laproscopic/robotic hysterectomy. 10/04/18 Radiation Therapy begins Sensorineural hearing loss, unspecified (Acute 09/08/11) Osteopenia determined by x-ray (Acute) DEXA Obesity (Chronic 07/23/12) BMI 30 would require wt decr to 145#; her goal 150 Hyperlipidemia (Chronic 04/06/98) LDL 207-178 prior to rx; risk 6% calc 10/2010, goal LDL 130; pravastatin begun 11/2007; chg atorvastatin 01/2013 Hypercalcemia (Acute 08/27/15) 10.5 08/2015. had been high nl; on thiazide; low vit D level 05/2016; ? 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 Haley Bermeo Adenoma of large intestine (Chronic 08/03/98) AT 43 CM; REPEAT 2007 NEG, BRIANNA REC 10 YR Medical History Essential (primary) hypertension (10/07/07) goal <150/90 Functional systolic murmur (04/07/75) NL ANATOMY ON ECHO 11/30/1996 [facility] VTE (venous thrombo[place]ol[place] [facility] [place] [facility] Pulmonary embolism Heart murmur Hyperlipemia Kidney stones Surgical History History of colonoscopy with polypectomy History of lumpectomy of both breasts History of lumpectomy Family History Mother , Angina at age 84. No problems noted. Father , CAD at age 81. Myocardial infarction Son Age: 56 No problems noted. Daughter Age: 60 Diabetes 15 Social History Smoking/Tobacco Use Status: Never Smoking risk assessment performed?: Yes Alcohol Intake: never Drug use: Never Substance use type: does not use Household members: other Housing: house Number of Children: 2 number of grandchildren: 7 Communication Needs: Hard of Hearing and Corrective Lenses current occupation: retired Pets and animals: Yes (dog) Pets and animals: dog(s) What type of physical activity do you participate in: walking Duration: 30-45 minutes/day Frequency: daily Seatbelt use: always Helmet use: No Working smoke detector in home: Yes Fire extinguisher in home: Yes Carbon monox detector in home: Yes Do you feel safe at home: Yes Do you feel safe in your relationship?: Yes Additional Social history: Lives in daughter's house with daughter, LURDES, 2 grandsons (high functioning developmental delay), toddler great-grandson (who daughter is raising), pt's dog and daughters three dogs. October 2021. 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
--- NOTE | 2024-10-08 13:58 | PDOC.CMPRO ---
Date of service: 10/08/24 Time of Service: 13:58 Care Management Progress Note Progress Note Text Progress Note Text: Candy was admitted on 10/07/24 with an acute airway obstruction. She had been at a barbecue and choked on a hamburger. Family members attempted the hiemlich maneuver many times (13) without success. EMS was called and she was transported to the hospital. Fortunately the food dislodged and her breathing improved. She was initially hypoxic and acidotic but both have resolved and she is back to her baseline, ready for discharge. Discharge Potential Discharge Needs: PCP F/U Appt Anticipated Barriers to Discharge: None Identified Patient/Family Education Needs: Review discharge instructions, discuss Ask Me Three Transportation: Private vehicle Plan: Candy will be discharged home with no new services. She will follow up with her PCP and plan of care and transport with family. Social Determinants of Health Screening Social Determinants of health last assessed in clinic: 10/07/24 Will the Patient Participate in the Screening?: Unable to obtain Do you worry about having a steady place to live?: no Problems where you live: no known problems In the past 12 months, have you had to go without electric, gas, oil or water in your home?: no Has lack of transportation kept you from medical appointments or from doing things needed for daily living?: no Has anyone in your life made you feel unsafe or unsupported?: no How hard is it for you to pay for the very basics like food, housing, medical care, and heating? Would you say it is:: Not hard at all Do you want help finding or keeping work or a job?: I do not need or want help If for any reason you need help with day-to-day activities such as bathing, preparing meals, shopping, managing finances, etc., do you get the help you need?: I get all the help I need How often do you feel lonely or isolated from those around you?: Rarely Do you speak a language other than Tajik at home?: No Does the patient want assistance with any of the above?: No Health Related Social Needs Health related social needs: feeling lonely/isolated (Z60.8) Health related social needs details: patient lives at home with her daughter, her daughter said that they have four generations living in the home.
== END 2024-10-08 12:45 | disposition home or self-care (01) | DRG 177 ==
LOC: ER 14:18 → ICU 15:20
PROVIDERS: Physician Assistant; Admitting Provider Family Medicine; Emergency Provider Student in an Organized Health Care Education/Training Program; PCP Nurse Practitioner Family; Responsible Provider Family Medicine; Visit Provider Family Medicine
DX: J69.0 Pneumonitis due to inhalation of food and vomit (principal); J96.01 Acute respiratory failure with hypoxia; J98.11 Atelectasis; F02.818 Dementia in other diseases classified elsewhere, unspecified severity, with other behavioral disturbance; E87.21 Acute metabolic acidosis; T17.820A Food in other parts of respiratory tract causing asphyxiation, initial encounter; J98.8 Other specified respiratory disorders; I10 Essential (primary) hypertension; Z86.711 Personal history of pulmonary embolism; Z86.718 Personal history of other venous thrombosis and embolism; B35.1 Tinea unguium; G30.9 Alzheimer's disease, unspecified; E87.6 Hypokalemia; Z85.42 Personal history of malignant neoplasm of other parts of uterus; E78.5 Hyperlipidemia, unspecified; W44.F3XA Food entering into or through a natural orifice, initial encounter
CPT/HCPCS: 00123; 36415; 80048; 80053; 82805; 85027; 86850; 86900; 86901; 96365; 96372; 99291; J1650; 71045; 83036; 85025; 85610; 99223; 99239; J0295; J0330; J2003; J2704; J2919

== ENCOUNTER → 2024-11-14 11:00 | Outpatient (BNVA) | payer MEDICARE, SELFPAY | PROVIDERS: PCP Nurse Practitioner Family; Referring Provider Nurse Practitioner Family; Visit Provider Podiatrist | DX: L60.3 Nail dystrophy (principal); M79.671 Pain in right foot; M79.672 Pain in left foot; L60.8 Other nail disorders; I73.89 Other specified peripheral vascular diseases; R09.89 Other specified symptoms and signs involving the circulatory and respiratory systems; R20.8 Other disturbances of skin sensation; L65.9 Nonscarring hair loss, unspecified; I83.93 Asymptomatic varicose veins of bilateral lower extremities; R60.0 Localized edema; R23.8 Other skin changes; L60.2 Onychogryphosis | CPT/HCPCS: 11719; 11721 ==